=== PATIENT | female | born 1950 | race Caucasian/White ===

== ENCOUNTER 2024-08-13 10:31 | Inpatient (IN) ==
[2024-08-13 10:55] LABS: iSTAT Creatinine 0.8 mg/dl (0.6-1.3); iSTAT Hemoglobin 11.9 g/dl (12.0-16.0); iSTAT Ionized Calcium 1.1 mmol/l (1.12-1.32); iSTAT Potassium 3.8 mmol/L (3.3-5.0)
[2024-08-13 10:59] LABS: Basophils # (auto) 0.06 K/uL (0.00-0.20); Basophils % (auto) 0.6 %; Eosinophils # (auto) 0.16 K/uL (0.00-0.50); Eosinophils % (auto) 1.5 %; Hematocrit (blood only) 34.9 % (37.0-47.0); Immature Granulocytes # (auto) 0.04 K/uL (0.01-0.20); Immature Granulocytes % (auto) 0.4 %; Lymphocytes # (auto) 3.69 K/uL (1.20-3.40); Mean Corpuscular Hemoglobin 31.3 pg (25.0-34.0); Mean Corpuscular Hgb Conc 34.4 g/dL (32.0-36.0); Mean Corpuscular Volume 90.9 fL (80.0-100.0); Mean Platelet Volume 9.1 fL (9.4-12.4); Monocytes # (auto) 0.79 K/uL (0.11-0.59); Monocytes % (auto) 7.5 %; Neutrophils # (auto) 5.79 K/uL (1.40-6.50); Platelet Count 295 K/uL (130-400); RDW Coefficient of Variation 12.5 % (11.5-14.5); RDW Standard Deviation 41.1 fL (36.4-46.3); Red Blood Count 3.84 M/uL (4.20-5.40); White Blood Count 10.53 K/ul (4.8-10.8)
[2024-08-13] MEDS: HYDROmorphone INJ 0.5 MG/0.5 ML SYR IV PRN ×2 (11:05→22:23)
[2024-08-13] MEDS: ONDANSETRON INJ 2 MG/ML 2 ML VIAL IV STA ×2 (11:05→12:22)
[2024-08-13 11:11] LABS: Albumin Globulin Ratio 1.6 (0.9-2); BUN Creatinine Ratio 23.8 (10-20); Bilirubin,Total 0.4 mg/dl (0.2-1.0); Calcium 9.2 mg/dl (8.6-10.3); Creatinine Clr Calc Pharmacy 64.5 ml/min; Globulin 2.5 gm/dl (2.5-4.0); Potassium 3.8 mmol/L (3.5-5.1); Total Protein 6.5 gm/dl (6.0-8.3)
[2024-08-13 11:20] LABS: Appearance Urine Cloudy (Clear); Bacteria Urine Automated 4+ (None Seen); Bilirubin Urine Negative (Negative); Blood Urine Negative (Negative); Cast Urine Automated 0-2 /lpf (0-2); Color Urine Yellow; Epithelial Cell Urine Auto 0-2 /hpf (0-2); Glucose Urine UA Negative (Negative); Ketones Urine Negative (Negative); Leukocyte Esterase Urine 2+ (Negative); Nitrite Urine Negative (Negative); Protein Urine Negative (Negative); RBC Urine Automated 0-2 /hpf (0-2); Specific Gravity Urine 1.014 (1.000-1.030); Urobilinogen Urine Negative (Negative); WBC Urine Automated 21-50 /hpf (0-5)
[2024-08-13 11:23] LABS: INR 1.1 (0.9-1.1); Partial Thromboplastin Ratio 0.9; Partial Thromboplastin Time 23 Seconds (21-31); Prothrombin Time 11.4 Seconds (9.0-12.0)
--- NOTE | 2024-08-13 11:29 | XRay Report ---
EXAM: Radiographs of the Left Femur 2 Views INDICATION: Posttraumatic pain. Fracture. TECHNIQUE: Frontal and lateral views of the left femur. COMPARISON: No relevant prior studies available. FINDINGS: Bones/joints: There is a minimally angulated acute intertrochanteric fracture of the left femur. The femur otherwise is intact. There is mild medial and lateral compartment knee joint line spurring and medial narrowing. Soft tissues: No abnormality noted. No radiopaque foreign body noted. IMPRESSION: There is a minimally angulated acute intertrochanteric fracture of the left femur. ACT 112: Negative or not required by law. Electronically signed by Shantel Guzman 08-13-2024 11:28 AM
--- NOTE | 2024-08-13 11:31 | XRay Report ---
EXAM: Radiographs of the Right Knee 2 Views INDICATION: Trauma. TECHNIQUE: Frontal and lateral views of the right knee. COMPARISON: No relevant prior studies available. FINDINGS: Bones/joints: There is mild to moderate tricompartment spurring and narrowing mostly involving the medial and patellofemoral joints. There is no fracture or erosion. No loose body. No subluxation or dislocation. No joint effusion noted. There is incidental chondrocalcinosis of the lateral meniscal cartilage. Soft tissues: No abnormality noted. No radiopaque foreign body noted. IMPRESSION: Tricompartment primary osteoarthritis of the right knee. No acute abnormality. ACT 112: Negative or not required by law. Electronically signed by Shantel Guzman 08-13-2024 11:28 AM
--- NOTE | 2024-08-13 11:31 | XRay Report ---
EXAM: Radiographs of the Left Shoulder Complete 3 Views INDICATION: Trauma. TECHNIQUE: 3 views of the left shoulder. COMPARISON: No relevant prior studies available. FINDINGS: Bones/joints: There is mild acromioclavicular and inferior glenohumeral spurring. No fracture, subluxation or dislocation. Visualized left ribs intact. Soft tissues: Mild calcific tendinitis noted. IMPRESSION: Mild calcific tendinitis noted. No fracture. ACT 112: Negative or not required by law. Electronically signed by Shantel Guzman 08-13-2024 11:28 AM
--- NOTE | 2024-08-13 11:31 | XRay Report ---
EXAM: Radiographs of the Pelvis 1 View INDICATION: Trauma. TECHNIQUE: Frontal view of the pelvis. COMPARISON: No relevant prior studies available. FINDINGS: Limitations: None. Bones/joints: There is an acute angulated intertrochanteric fracture of the left femur. No other fracture noted. Soft tissues: No abnormality noted. No radiopaque foreign body noted. Gastrointestinal tract: Midline pelvic calcifications are of uncertain etiology and could be within the bladder or bowel. IMPRESSION: 1. There is an acute angulated intertrochanteric fracture of the left femur. Pelvis otherwise intact. 2. Cannot exclude bladder stones. ACT 112: Negative or not required by law. Electronically signed by Shantel Guzman 08-13-2024 11:28 AM
--- NOTE | 2024-08-13 11:31 | XRay Report ---
EXAM: Radiograph of the Chest 1 View INDICATION: Trauma. Hip fracture. TECHNIQUE: Frontal view of the chest. COMPARISON: No relevant prior studies available. FINDINGS: Lungs and pleural spaces: No consolidation or pulmonary edema. No pleural effusion or pneumothorax. Heart: Shape and configuration within normal limits allowing for technique. Mediastinum: Normal contour. Bones/joints: Degenerative changes noted throughout the spine. No acute osseous abnormality seen. Soft tissues: No abnormality noted. No radiopaque foreign body noted. Upper abdomen: No abnormality noted. IMPRESSION: No acute cardiopulmonary disease. ACT 112: Negative or not required by law. Electronically signed by Shantel Guzman 08-13-2024 11:28 AM
--- NOTE | 2024-08-13 11:55 | Electrocardiogram Report ---
Test Reason : Blood Pressure : */* mmHG Vent. Rate : 67 BPM Atrial Rate : 67 BPM P-R Int : 164 ms QRS Dur : 128 ms QT Int : 484 ms P-R-T Axes : 55 7 147 degrees QTcB Int : 511 ms Normal sinus rhythm Left bundle branch block Abnormal ECG No previous ECGs available Confirmed by Pacheco Guevara ([id number]) on 08/13/2024 11:54:27 AM Referred By: Confirmed By: Pacheco Guevara
--- NOTE | 2024-08-13 11:57 | CT Scan Report ---
EXAM: CT Head Without Intravenous Contrast INDICATION: Fall. TECHNIQUE: Axial computed tomography images of the head/brain without intravenous contrast. Sagittal and/or coronal reformats are provided. Sagittal and coronal reformatted images were created and reviewed. This CT exam was performed using one or more of the following dose reduction techniques: automated exposure control, adjustment of the mA and/or kV according to patient size, and/or use of iterative reconstruction technique. COMPARISON: No relevant prior studies available. FINDINGS: Limitations: None. Brain and extra-axial spaces: No abnormality noted. No hemorrhage. No significant white matter disease. No edema. No ventriculomegaly. Bones/joints: No acute changes. Soft tissues: No significant abnormality noted. Vasculature: No acute abnormality noted. Sinuses: No layering fluid in the visualized portions of the paranasal sinuses. Mastoid air cells: No mastoid effusion. Orbits: No significant abnormality noted. IMPRESSION: No abnormality noted. ACT 112: Negative or not required by law. Electronically signed by Shantel Guzman 08-13-2024 11:57 AM
[2024-08-13] MEDS: cefTRIAXone SODIUM 2,000 MG/50 ML BAG IV STA (12:02)
--- NOTE | 2024-08-13 12:09 | History & Physical Report ---
Date of Service August 13, 2024 Assessment & Plan (1) Acute bilateral knee pain: (2) Closed intertrochanteric fracture of left hip: (3) Fall: (4) Left shoulder strain: Plan Ms Mendoza is a 74 yo woman with history of DMTII, HTN, HLD, bilateral knee osteoarthritis, gerd who is admitted for left intertrochanteric fracture of femur. Injury sustained after slip on ice. Patient with QTC prolongation, will monitor on tele and hold qtc prolongating agents. With nausea in ED, will consider scopolamine if not resolving. #Left intertrochanteric fracture of femur #Mechanical fall Imaging as above sustained 08/13 after slip on ice Ortho consult NPO for possible procedure SCDs for now tylenol vic, dilaudid prn further recommendations per ortho PT/OT when able #Left shoulder pain Bones/joints: There is mild acromioclavicular and inferior glenohumeral spurring. No fracture, subluxation or dislocation. Visualized left ribs intact. PT/OT tylenol vic lidocaine patch #nausea received zofran x 2 in ED will follow qtc closely consider scopolamine if persistent #abnormal UA #Chronic cystitis interstitial cystitis patient doesn't necessarily feel that dysuria is any worse than usual CTX for short course given UA and procedure follow cx #QTC prolongation on admission 511 hold amytriptyline replace lytes prn repeat youth nutritional monitor on tele #HTN losartan 50mg, hold for am resume as able atenolol 40mg continue #HLD continue statin/fenofibrate #DMTII A1C 7.2% diet controlled ssi while admitted #Hypothyroidism TSH 05/2024 2.36 on synthroid 100mcg #Peripheral neuropathy BLE On amitriptyline 50mg daily; will hold 2/2 QTC #knee osteoarthritis follows Dr Lu continue volatren #GERD EGD/Colonscopy in 02/2024 Continue pantoprazole DVT SCDs for now PCP Dr Franklin admit med tele for repair of left intertrochanteric fracture Admission and Anticipated Discharge Date Admission Date: Time spent evaluating patient, direct bedside care, chart review, placing orders, interpretation of diagnostic studies, discussion with consultants, patient, and family members, as well as other required patient management activities is 75 minutes. History of Present Illness Chief Complaint: Fall, left hip Primary Care Provider: Galileo Franklin Ms Mendoza is a 74 yo woman with history of DMTII, HTN, HLD, bilateral knee osteoarthritis, gerd who presented to [facility] ED due to fall on ice. Patient was in usual state of health, however, after decending stairs outside, she slipped on ice and landed on left side. She states she noted pain with trying to ambulate prompting presentation to ED. at bedside. Both report that if rehab is necessary they are comfortable with that option contingent on recovery. Patient states that she has chronic dysuria and cannot discern if symptoms are necessarily worse than baseline. Patient on amitriptyline for peripheral neuropathy and interstitial cystitis. Patient denies chest pain, palpitations, sob or other acute concerns Reports nausea at this time, suspect 2/2 "everything" she is going through at this time In the ED, vitals were notable for BP of 120-150s HR of 60-80s and O2 sat of high 90s on 2L Imaging revealed acute angulated intertrochanteric fracture of the left femur. Pelvis otherwise intact. UA with Bacteria, LE, WBCs EKG 511 ED interventions: analgesia, zofran x 2, ctx Consultants: ortho Patient [facility] further evaluation and management of left intertrochanteric fracture of femur Allergies Allergy/AdvReac Type Severity Reaction Status Date / Time Unable to Assess Allergy Unverified 08/13/24 12:17 Home Medications Medication Instructions Recorded Confirmed Type Probiotic 1 cap PO DAILY 08/13/24 08/13/24 History amitriptyline 50 mg tablet 50 mg PO HS 08/13/24 08/13/24 History atenolol 50 mg tablet 50 mg PO DAILY 08/13/24 08/13/24 History calcium 1 tab PO DAILY 08/13/24 08/13/24 History famotidine 20 mg tablet 20 mg PO DAILY 08/13/24 08/13/24 History fenofibrate micronized 67 mg 67 mg PO DAILY 08/13/24 08/13/24 History capsule fiber 1 tab PO DAILY 08/13/24 08/13/24 History levothyroxine 100 mcg tablet 100 mcg PO DAILY 08/13/24 08/13/24 History losartan 50 mg tablet 50 mg PO DAILY 08/13/24 08/13/24 History multivitamin 1 tab PO DAILY 08/13/24 08/13/24 History pantoprazole 40 mg tablet,delayed 40 mg PO DAILY 08/13/24 08/13/24 History release potassium chloride 10 mEq 20 meq PO BID 08/13/24 08/13/24 History tablet,extended release pravastatin 20 mg tablet 20 mg PO DAILY 08/13/24 08/13/24 History Past Med/Surg History Problem List (Updated 08/13/24 @ 13:57 by Ankit Covarrubias MD) Left shoulder strain (Acute) Acute bilateral knee pain (Acute) Fall (Acute) Closed intertrochanteric fracture of left hip (Acute) Medical History (Updated 08/13/24 @ 13:57 by Ankit Covarrubias MD) Osteoarthritis GERD (gastroesophageal reflux disease) Peripheral neuropathy Hypothyroid Hyperlipidemia DM type 2 (diabetes mellitus, type 2) Hypertension Social History Smoking Status: Never smoker Preferred Language: [place] Island[place] Feels Safe at Home: Yes Review of Systems Review of Systems: Constitutional: (-) fever/chills, (-) recent loss of weight, (-) appetite changes, (-) night sweats. Head: (-) headache, (-) dizziness. Eye: (-) blurring of vision, (-) double vision, (-) redness. Ear: (-) hearing loss, (-) discharge, (-) vertigo Nose: (-) discharge, (-) bleeding, (-) congestion, (-) post nasal drip. Throat: (-) sore throat, (-) hoarseness of voice, (-) odynophagia. Cardiovascular: (-) chest pain, (-) palpitations, (-) syncope, (-) orthopnea, (- ) PND, (-) leg swelling. Respiratory: (-) shortness of breath, (-) cough, (-) wheezing, (-) hemoptysis. Neuro: (-) weakness in extremities, (-) numbness, (-) tingling, (-) tremor. Gastrointestinal: (-) belly pain, (-) belly distension, (-) nausea, (-) vomiting, (-) diarrhea, (-) constipation, Genitourinary: (-) hematuria, (+) dysuria, (-) polyuria, (-) hesitancy, (-) frequency, (-) urinary incontinence. Musculoskeletal: (-) myalgia, (+) arthralgia. Skin: (-) rashes. Endocrine: (-) heat/cold intolerance. Psychiatry: (-) depression, (-) hallucination. Physical Exam Physical Exam: GENERAL APPEARANCE: AxOx4, mildly uncomfortable female HEENT: NC, AT. MMM. EOMI, clear conjunctiva, oropharynx clear. NECK: Supple without lymphadenopathy. No stiffness or restricted ROM. HEART: Normal rate and regular rhythm, normal S1/S1, no m/r/g LUNGS: CTAB, moving air well. No crackles or wheezes are heard. ABDOMEN: Soft, nontender, nondistended with good bowel sounds heard. EXTREMITIES: left lower extremity shorten and externally rotated, sensation pulse intact . NEUROLOGICAL: Grossly nonfocal. Alert and oriented, moving all 3 extremities, LLE limited 2/2 pain. CN not formally tested but appear grossly intact. Skin: Warm and dry without any rash. Results & Data Results & Data Vital Signs (Past 12 Hours) Vital Signs Temp Pulse Pulse Resp BP BP Pulse Ox 08/13/24 11:20 64 18 167/79 H 95 08/13/24 10:40 36.5 C 66 20 145/60 H 100 08/13/24 10:40 36.5 C 66 20 145/60 H 100 08/13/24 10:40 36.5 C 66 20 145/60 H 100 O2 Del Method O2 Flow Rate 08/13/24 11:20 Room Air 08/13/24 10:40 Room Air 08/13/24 10:40 Room Air 0 08/13/24 10:40 Room Air Laboratory Results Short CBC 08/13/24 Range/Units 10:39 WBC 10.53 (4.8-10.8) K/ul Hgb 12.0 (12.0-16.0) g/dl Hct 34.9 L (37.0-47.0) % Plt Count 295 (130-400) K/uL BMP 08/13/24 10:39 Sodium 135 L Potassium 3.8 Chloride 104 Carbon Dioxide 23 BUN 19 Creatinine 0.80 Glucose 197 H Calcium 9.2 Liver Function 08/13/24 Range/Units 10:39 Total Bilirubin 0.4 (0.2-1.0) mg/dl AST 36 (13-39) U/L ALT 24 (7-52) U/L Alkaline Phosphatase 58 (34-104) U/L Albumin 4.0 (3.4-5.0) gm/dl Urine 08/13/24 Range/Units 11:05 Urine Color Yellow Urine Appearance Cloudy A (Clear) Urine pH 7.0 (4.5-7.5) Ur Specific [place] 1.014 (1.000-1.030) Urine Protein Negative (Negative) Urine Glucose (UA) Negative (Negative) Diagnostic Findings Femur X-Ray 08/13/24 10:46 EXAM: Radiographs of the Left Femur 2 Views INDICATION: Posttraumatic pain. Fracture. TECHNIQUE: Frontal and lateral views of the left femur. COMPARISON: No relevant prior studies available. FINDINGS: Bones/joints: There is a minimally angulated acute intertrochanteric fracture of the left femur. The femur otherwise is intact. There is mild medial and lateral compartment knee joint line spurring and medial narrowing. Soft tissues: No abnormality noted. No radiopaque foreign body noted. IMPRESSION: There is a minimally angulated acute intertrochanteric fracture of the left femur. ACT 112: Negative or not required by law. Electronically signed by Shantel Guzman 08-13-2024 11:28 AM Knee X-Ray 08/13/24 10:46 EXAM: Radiographs of the Right Knee 2 Views INDICATION: Trauma. TECHNIQUE: Frontal and lateral views of the right knee. COMPARISON: No relevant prior studies available. FINDINGS: Bones/joints: There is mild to moderate tricompartment spurring and narrowing mostly involving the medial and patellofemoral joints. There is no fracture or erosion. No loose body. No subluxation or dislocation. No joint effusion noted. There is incidental chondrocalcinosis of the lateral meniscal cartilage. Soft tissues: No abnormality noted. No radiopaque foreign body noted. IMPRESSION: Tricompartment primary osteoarthritis of the right knee. No acute abnormality. ACT 112: Negative or not required by law. Electronically signed by Shantel Guzman 08-13-2024 11:28 AM Pelvis X-Ray 08/13/24 10:46 EXAM: Radiographs of the Pelvis 1 View INDICATION: Trauma. TECHNIQUE: Frontal view of the pelvis. COMPARISON: No relevant prior studies available. FINDINGS: Limitations: None. Bones/joints: There is an acute angulated intertrochanteric fracture of the left femur. No other fracture noted. Soft tissues: No abnormality noted. No radiopaque foreign body noted. Gastrointestinal tract: Midline pelvic calcifications are of uncertain etiology and could be within the bladder or bowel. IMPRESSION: 1. There is an acute angulated intertrochanteric fracture of the left femur. Pelvis otherwise intact. 2. Cannot exclude bladder stones. ACT 112: Negative or not required by law. Electronically signed by Shantel Guzman 08-13-2024 11:28 AM Shoulder X-Ray 08/13/24 10:46 EXAM: Radiographs of the Left Shoulder Complete 3 Views INDICATION: Trauma. TECHNIQUE: 3 views of the left shoulder. COMPARISON: No relevant prior studies available. FINDINGS: Bones/joints: There is mild acromioclavicular and inferior glenohumeral spurring. No fracture, subluxation or dislocation. Visualized left ribs intact. Soft tissues: Mild calcific tendinitis noted. IMPRESSION: Mild calcific tendinitis noted. No fracture. ACT 112: Negative or not required by law. Electronically signed by Shantel Guzman 08-13-2024 11:28 AM Chest X-Ray 08/13/24 10:47 EXAM: Radiograph of the Chest 1 View INDICATION: Trauma. Hip fracture. TECHNIQUE: Frontal view of the chest. COMPARISON: No relevant prior studies available. FINDINGS: Lungs and pleural spaces: No consolidation or pulmonary edema. No pleural effusion or pneumothorax. Heart: Shape and configuration within normal limits allowing for technique. Mediastinum: Normal contour. Bones/joints: Degenerative changes noted throughout the spine. No acute osseous abnormality seen. Soft tissues: No abnormality noted. No radiopaque foreign body noted. Upper abdomen: No abnormality noted. IMPRESSION: No acute cardiopulmonary disease. ACT 112: Negative or not required by law. Electronically signed by Shantel Guzman 08-13-2024 11:[address] 08/13/24 10:50 EXAM: CT Head Without Intravenous Contrast INDICATION: Fall. TECHNIQUE: Axial computed tomography images of the head/brain without intravenous contrast. Sagittal and/or coronal reformats are provided. Sagittal and coronal reformatted images were created and reviewed. This CT exam was performed using one or more of the following dose reduction techniques: automated exposure control, adjustment of the mA and/or kV according to patient size, and/or use of iterative reconstruction technique. COMPARISON: No relevant prior studies available. FINDINGS: Limitations: None. Brain and extra-axial spaces: No abnormality noted. No hemorrhage. No significant white matter disease. No edema. No ventriculomegaly. Bones/joints: No acute changes. Soft tissues: No significant abnormality noted. Vasculature: No acute abnormality noted. Sinuses: No layering fluid in the visualized portions of the paranasal sinuses. Mastoid air cells: No mastoid effusion. Orbits: No significant abnormality noted. IMPRESSION: No abnormality noted. ACT 112: Negative or not required by law. Electronically signed by Shantel Guzman 08-13-2024 11:57 AM Medications Administered Home Medications Medication Instructions Recorded Confirmed Last Taken Probiotic 1 cap PO DAILY 08/13/24 08/13/24 Unknown amitriptyline 50 mg tablet 50 mg PO HS 08/13/24 08/13/24 Unknown atenolol 50 mg tablet 50 mg PO DAILY 08/13/24 08/13/24 Unknown calcium 1 tab PO DAILY 08/13/24 08/13/24 Unknown famotidine 20 mg tablet 20 mg PO DAILY 08/13/24 08/13/24 Unknown fenofibrate micronized 67 mg 67 mg PO DAILY 08/13/24 08/13/24 Unknown capsule fiber 1 tab PO DAILY 08/13/24 08/13/24 Unknown levothyroxine 100 mcg tablet 100 mcg PO DAILY 08/13/24 08/13/24 Unknown losartan 50 mg tablet 50 mg PO DAILY 08/13/24 08/13/24 Unknown multivitamin 1 tab PO DAILY 08/13/24 08/13/24 Unknown pantoprazole 40 mg tablet,delayed 40 mg PO DAILY 08/13/24 08/13/24 Unknown release potassium chloride 10 mEq 20 meq PO BID 08/13/24 08/13/24 Unknown tablet,extended release pravastatin 20 mg tablet 20 mg PO DAILY 08/13/24 08/13/24 Unknown Active Medications Generic Name Dose Route Start Last Admin Trade Name Freq PRN Reason Stop Dose Admin Hydromorphone HCl 0.5 mg 08/13/24 10:46 08/13/24 12:04 Hydromorphone Inj 0.5 Mg/0.5 Ml Syr IV 08/27/24 10:45 0.5 mg Q20M PRN Administration Severe Pain (Rating 7,8,9,10)
--- NOTE | 2024-08-13 12:10 | Emergency Department Note ---
Impression & Plan Closed intertrochanteric fracture of left hip, Fall, Acute bilateral knee pain, Left shoulder strain ED Provider Note NAME: ANA HAND AGE: 74 SEX: Female INFORMANT: Patient and EMS ED PROVIDER(S): Tigre Dial MD CHIEF COMPLAINT: Trauma PLAN: Disposition: Admitted Outpatient prescription management: none Referral: None MEDICAL DECISION MAKING: Patient presented because of an accidental fall on the icy stairs. Patient landed on her left side and had significant left hip pain. Patient was trauma alert. Primary and secondary surveys performed. Patient was found to have pain in the left shoulder, left hip, both knees. Patient does not feel like she hit her head but was uncertain so head CT imaging ordered. Patient had unremarkable blood work. X-ray imaging of the chest, shoulder and right knee did not reveal any fracture. Significant DJD noted in the knees bilaterally. Left femur and hip imaging reveal an intertrochanteric fracture. Pelvis unremarkable. Head CT was done and negative. Patient's ECG did not show any acute ischemia. Patient was treated with IV Dilaudid. Perry catheter placed. I did consult with orthopedics, Dr. Garcia. He is going to come and see the patient. Patient was given additional Zofran for nausea. She was given IV Rocephin to cover her possible UTI. Patient had a consult placed with Dr. Lvoe of the [facility]. Patient was evaluated and admitted for further management. 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 Vital Signs: reviewed and remarkable for no significant abnormalities Additional History obtained from: EMS. Patient received IV fentanyl 75 mcg x 1 and 25 mcg x 2 Chronic Medical/Social Conditions affecting care: Arthritis Prior/ Outside/ External records reviewed: none Differential Diagnosis: Fracture, dislocation, neurovascular compromise, compartment syndrome, soft tissue injury, as well as other pathologies. Diagnostics, independently interpreted by me: ECG: Twelve-lead ECG reveals normal sinus rhythm at 67 bpm. Left bundle branch block. No acute ischemia. No ectopy. Cardiac Monitoring: Cardiac monitoring ordered by me: The patient was placed on continuous cardiac monitoring and observed. It revealed a normal sinus rhythm at 81 beats per minute without ectopy or evidence of dysrhythmia. Medical decision rules: none Imaging studies: Head CT: A noncontrast CT scan of the head was performed and was negative for tumor, fracture, intracranial hemorrhage, or other acute pathology. X-ray imaging of the left shoulder and chest are negative for acute trauma. X-ray imaging of the left hip, pelvis, femur and right knee reveal left intertrochanteric hip fracture. There is osteoarthritis noted in both knees. I refer you to the EMR for further details. HPI: 74 year old Female arrives for evaluation of trauma. This started just prior to arrival and is described as falling on the snowy steps. Patient states that she went outside and slipped and went down on her left side. The patient also notes the following associated symptoms, left shoulder pain, left hip pain, bilateral knee pain. The patient has been given fentanyl x 3 by EMS for relieving factors. Current pain is rated as 8/10. Pain worse with movement of the left leg. Patient also notes some urinary discomfort recently. Patient is unsure if she hit her head. Denies any syncope. Pt denies LOC, headache, visual changes, neck pain, chest pain, breathing difficulties, nausea, vomiting, abdominal pain, back pain, numbness, weakness, open wounds, active bleeding, or other complaints. PAST MEDICAL HISTORY: See Below, osteoarthritis PAST SURGICAL HISTORY: See Below, SOCIAL HISTORY: See Below, HOME MEDICATIONS: See Below ALLERGIES: See Below VITALS: See Below PHYSICAL EXAMINATION: GENERAL: Awake, alert, uncomfortable appearing, no acute distress HEAD: Normocephalic, atraumatic. No whiteside sign. No raccoon eyes. EYES: Normal conjunctiva. PERRL. EARS: External ears normal. NOSE: Atraumatic OROPHARYNX: Lips, tongue, and mucosa unremarkable. No erythema or exudate. NECK: Supple. No nuchal rigidity. FROM. No tracheal deviation or JVD. No posterior midline tenderness. No step offs noted. RESPIRATORY: CTA bilaterally CARDIAC: Regular rate, normal rhythm. ABDOMEN: Inspection reveals no abnormalities. Soft, non distended. No tenderness to palpation. No hernias. BACK: No midline step offs or tenderness to palpation. Unremarkable. PELVIS: Stable to rock. SKIN: Normal. LYMPH: No adenopathy. MUSCULOSKELETAL: Right upper and lower extremities are atraumatic. There is some mild discomfort of range of motion testing of the left shoulder without obvious dislocation. No signs of deformity. No ecchymosis or swelling. Remainder of left upper extremity is atraumatic. Examination of the left lower extremity reveals shortening and external rotation. There is left hip tenderness and range of motion of the left hip is not able to be done due to severe pain. Clinically concerning for left hip fracture. There is a mild discomfort of the left knee without obvious deformity. Both lower extremities are neurovascularly intact. NEURO: GCS 15. Normal sensorium. No sensory or motor deficits noted. PROCEDURES: none CRITICAL CARE: none OBSERVATION NOTE: none Past Med/Surg History Problem List (Updated 08/13/24 @ 12:10 by Tigre Dial MD) Left shoulder strain (Acute) Acute bilateral knee pain (Acute) Fall (Acute) Closed intertrochanteric fracture of left hip (Acute) Social History Smoking Status: Never smoker Preferred Language: Divehi Feels Safe at Home: Yes Allergies Allergies Allergy/AdvReac Type Severity Reaction Status Date / Time Unable to Assess Allergy Unverified 08/13/24 12:17 Home Meds Home Medications Medication Instructions Recorded Confirmed Probiotic 1 cap PO DAILY 08/13/24 08/13/24 amitriptyline 50 mg tablet 50 mg PO HS 08/13/24 08/13/24 atenolol 50 mg tablet 50 mg PO DAILY 08/13/24 08/13/24 calcium 1 tab PO DAILY 08/13/24 08/13/24 famotidine 20 mg tablet 20 mg PO DAILY 08/13/24 08/13/24 fenofibrate micronized 67 mg 67 mg PO DAILY 08/13/24 08/13/24 capsule fiber 1 tab PO DAILY 08/13/24 08/13/24 levothyroxine 100 mcg tablet 100 mcg PO DAILY 08/13/24 08/13/24 losartan 50 mg tablet 50 mg PO DAILY 08/13/24 08/13/24 multivitamin 1 tab PO DAILY 08/13/24 08/13/24 pantoprazole 40 mg tablet,delayed 40 mg PO DAILY 08/13/24 08/13/24 release potassium chloride 10 mEq 20 meq PO BID 08/13/24 08/13/24 tablet,extended release pravastatin 20 mg tablet 20 mg PO DAILY 08/13/24 08/13/24 Results & Data (ED) Vital Signs Vital Signs - 24 hr 08/13/24 10:40 08/13/24 10:40 08/13/24 10:40 Temperature 36.5 C 36.5 C 36.5 C Temperature Source Oral Oral Pulse Rate 66 66 Pulse Rate [Apical] 66 Pulse Rhythm Regular Pulse Rhythm [Apical] Pulse Strength Normal Pulse Strength [Apical] Pulse Strength [Bilateral Femoral] Normal Respiratory Rate 20 20 20 Respiratory Effort / Characteristics Spontaneous Non-Labored Spontaneous Respiratory Depth Normal Normal Respiratory Pattern Regular Blood Pressure 145/60 H 145/60 H Blood Pressure [Right Arm] 145/60 H Blood Pressure Mean 88 Blood Pressure Mean [Right Arm] 88 Blood Pressure Position Lying Blood Pressure Position [Right Arm] Lying Pulse Oximetry 100 100 100 Oxygen Delivery Method Room Air Room Air Room Air Oxygen Flow Rate 0 Sepsis Recent Fever Within 48 Hours No Sepsis New/Unexplained Change in Mental Status No Sepsis Action Taken by Nursing No Action Required 08/13/24 11:20 08/13/24 12:08 08/13/24 12:18 Temperature Temperature Source Pulse Rate 81 Pulse Rate [Apical] 64 70 Pulse Rhythm Pulse Rhythm [Apical] Regular Pulse Strength Pulse Strength [Apical] Normal Pulse Strength [Bilateral Femoral] Respiratory Rate 18 15 Respiratory Effort / Characteristics Non-Labored Spontaneous Respiratory Depth Normal Respiratory Pattern Regular Blood Pressure Blood Pressure [Right Arm] 167/79 H 125/81 Blood Pressure Mean Blood Pressure Mean [Right Arm] 108 95 Blood Pressure Position Blood Pressure Position [Right Arm] Semi-fowlers Pulse Oximetry 95 99 Oxygen Delivery Method Room Air Nasal Cannula Oxygen Flow Rate 2 Sepsis Recent Fever Within 48 Hours Sepsis New/Unexplained Change in Mental Status Sepsis Action Taken by Nursing Laboratory Data 08/13/24 10:39 08/13/24 10:39 Lab Results 08/13/24 08/13/24 08/13/24 Range/Units 10:39 10:43 11:05 WBC 10.53 (4.8-10.8) K/ul RBC 3.84 L (4.20-5.40) M/uL Hgb 12.0 (12.0-16.0) g/dl POC Hgb 11.9 L (12.0-16.0) g/dl Hct 34.9 L (37.0-47.0) % POC Hct 35 L (37-47) % MCV 90.9 (80.0-100.0) fL MCH 31.3 (25.0-34.0) pg MCHC 34.4 (32.0-36.0) g/dL RDW Std Deviation 41.1 (36.4-46.3) fL RDW Coeff of Alyssia 12.5 (11.5-14.5) % Plt Count 295 (130-400) K/uL MPV 9.1 L (9.4-12.4) fL Immature Gran % (Auto) 0.4 % Neut % (Auto) 55.0 % Lymph % (Auto) 35.0 % [place] % (Auto) 7.5 % Eos % (Auto) 1.5 % Baso % (Auto) 0.6 % Neut # (Auto) 5.79 (1.40-6.50) K/uL Lymph # (Auto) 3.69 H (1.20-3.40) K/uL [place] # (Auto) 0.79 H (0.11-0.59) K/uL Eos # (Auto) 0.16 (0.00-0.50) K/uL Baso # (Auto) 0.06 (0.00-0.20) K/uL Immature Gran # (Auto) 0.04 (0.01-0.20) K/uL PT 11.4 (9.0-12.0) Seconds INR 1.1 (0.9-1.1) APTT 23 (21-31) Seconds PTT Ratio 0.9 POC Sodium 138 (135-144) mmol/L Sodium 135 L (136-145) mmol/L POC Potassium 3.8 (3.3-5.0) mmol/L Potassium 3.8 (3.5-5.1) mmol/L POC Chloride 107 (101-112) mmol/L Chloride 104 (98-107) mmol/L Carbon Dioxide 23 (21-32) mmol/L POC Total CO2 20 L (24-31) mmol/L Anion Gap 8 (3-11) POC Anion Gap 15.0 L (16-25) mmol/L POC BUN 17 (7-18) mg/dl BUN 19 (6-23) mg/dl Creatinine 0.80 (0.6-1.2) mg/dl POC Creatinine 0.8 (0.6-1.3) mg/dl Est Cr Clr Drug Dosing 64.5 ml/min eGFR 76.79 BUN/Creatinine Ratio 23.8 H (10-20) Glucose 197 H (70-99(Fasting)) mg/dl POC Glucose (other) 194 H (70-99) mg/dl Calcium 9.2 (8.6-10.3) mg/dl POC Ioniz Calcium Alexis 1.10 L (1.12-1.32) mmol/l Total Bilirubin 0.4 (0.2-1.0) mg/dl AST 36 (13-39) U/L ALT 24 (7-52) U/L Alkaline Phosphatase 58 (34-104) U/L Total Protein 6.5 (6.0-8.3) gm/dl Albumin 4.0 (3.4-5.0) gm/dl Globulin 2.5 (2.5-4.0) gm/dl Albumin/Globulin Ratio 1.6 (0.9-2) Urine Color Yellow Urine Appearance Cloudy A (Clear) Urine pH 7.0 (4.5-7.5) Ur Specific [place] 1.014 (1.000-1.030) Urine Protein Negative (Negative) Urine Glucose (UA) Negative (Negative) Urine Ketones Negative (Negative) Urine Blood Negative (Negative) Urine Nitrite Negative (Negative) Urine Bilirubin Negative (Negative) Urine Urobilinogen Negative (Negative) Ur Leukocyte Esterase 2+ H (Negative) Urine WBC (Auto) 21-50 H (0-5) /hpf Urine RBC (Auto) 0-2 (0-2) /hpf U Hyaline Cast (Auto) 0-2 (0-2) /lpf U Epithel Cells (Auto) 0-2 (0-2) /hpf Urine Bacteria (Auto) 4+ H (None Seen) Administered Medications Hydromorphone HCl (Hydromorphone Inj 0.5 Mg/0.5 Ml Syr) 0.5 mg IV Q20M PRN PRN Reason: Severe Pain (Rating 7,8,9,10) Stop: 08/27/24 10:45 Last Admin: 08/13/24 12:04 Dose: 0.5 mg Documented By: Admin: 08/13/24 11:05 Dose: 0.5 mg Documented By: NA Ceftriaxone Sodium (Rocephin) 2,000 mg in 50 mls @ 100 mls/hr IV NOW STA Stop: 08/13/24 12:20 Last Admin: 08/13/24 12:02 Dose: 100 mls/hr Documented By: CEF Discontinued Medications Ondansetron HCl (Ondansetron Inj 2 Mg/Ml 2 Ml Vial) 4 mg IV NOW STA Stop: 08/13/24 10:49 Last Admin: 08/13/24 11:05 Dose: 4 mg Documented By: NA Imaging Data Radiologist's Impression: Femur X-Ray 08/13/24 10:46 EXAM: Radiographs of the Left Femur 2 Views INDICATION: Posttraumatic pain. Fracture. TECHNIQUE: Frontal and lateral views of the left femur. COMPARISON: No relevant prior studies available. FINDINGS: Bones/joints: There is a minimally angulated acute intertrochanteric fracture of the left femur. The femur otherwise is intact. There is mild medial and lateral compartment knee joint line spurring and medial narrowing. Soft tissues: No abnormality noted. No radiopaque foreign body noted. IMPRESSION: There is a minimally angulated acute intertrochanteric fracture of the left femur. ACT 112: Negative or not required by law. Electronically signed by Shantel Guzman 08-13-2024 11:28 AM Knee X-Ray 08/13/24 10:46 EXAM: Radiographs of the Right Knee 2 Views INDICATION: Trauma. TECHNIQUE: Frontal and lateral views of the right knee. COMPARISON: No relevant prior studies available. FINDINGS: Bones/joints: There is mild to moderate tricompartment spurring and narrowing mostly involving the medial and patellofemoral joints. There is no fracture or erosion. No loose body. No subluxation or dislocation. No joint effusion noted. There is incidental chondrocalcinosis of the lateral meniscal cartilage. Soft tissues: No abnormality noted. No radiopaque foreign body noted. IMPRESSION: Tricompartment primary osteoarthritis of the right knee. No acute abnormality. ACT 112: Negative or not required by law. Electronically signed by Shantel Guzman 08-13-2024 11:28 AM Pelvis X-Ray 08/13/24 10:46 EXAM: Radiographs of the Pelvis 1 View INDICATION: Trauma. TECHNIQUE: Frontal view of the pelvis. COMPARISON: No relevant prior studies available. FINDINGS: Limitations: None. Bones/joints: There is an acute angulated intertrochanteric fracture of the left femur. No other fracture noted. Soft tissues: No abnormality noted. No radiopaque foreign body noted. Gastrointestinal tract: Midline pelvic calcifications are of uncertain etiology and could be within the bladder or bowel. IMPRESSION: 1. There is an acute angulated intertrochanteric fracture of the left femur. Pelvis otherwise intact. 2. Cannot exclude bladder stones. ACT 112: Negative or not required by law. Electronically signed by Shantel Guzman 08-13-2024 11:28 AM Shoulder X-Ray 08/13/24 10:46 EXAM: Radiographs of the Left Shoulder Complete 3 Views INDICATION: Trauma. TECHNIQUE: 3 views of the left shoulder. COMPARISON: No relevant prior studies available. FINDINGS: Bones/joints: There is mild acromioclavicular and inferior glenohumeral spurring. No fracture, subluxation or dislocation. Visualized left ribs intact. Soft tissues: Mild calcific tendinitis noted. IMPRESSION: Mild calcific tendinitis noted. No fracture. ACT 112: Negative or not required by law. Electronically signed by Shantel Guzman 08-13-2024 11:28 AM Chest X-Ray 08/13/24 10:47 EXAM: Radiograph of the Chest 1 View INDICATION: Trauma. Hip fracture. TECHNIQUE: Frontal view of the chest. COMPARISON: No relevant prior studies available. FINDINGS: Lungs and pleural spaces: No consolidation or pulmonary edema. No pleural effusion or pneumothorax. Heart: Shape and configuration within normal limits allowing for technique. Mediastinum: Normal contour. Bones/joints: Degenerative changes noted throughout the spine. No acute osseous abnormality seen. Soft tissues: No abnormality noted. No radiopaque foreign body noted. Upper abdomen: No abnormality noted. IMPRESSION: No acute cardiopulmonary disease. ACT 112: Negative or not required by law. Electronically signed by Shantel Guzman 08-13-2024 11:[address] 08/13/24 10:50 EXAM: CT Head Without Intravenous Contrast INDICATION: Fall. TECHNIQUE: Axial computed tomography images of the head/brain without intravenous contrast. Sagittal and/or coronal reformats are provided. Sagittal and coronal reformatted images were created and reviewed. This CT exam was performed using one or more of the following dose reduction techniques: automated exposure control, adjustment of the mA and/or kV according to patient size, and/or use of iterative reconstruction technique. COMPARISON: No relevant prior studies available. FINDINGS: Limitations: None. Brain and extra-axial spaces: No abnormality noted. No hemorrhage. No significant white matter disease. No edema. No ventriculomegaly. Bones/joints: No acute changes. Soft tissues: No significant abnormality noted. Vasculature: No acute abnormality noted. Sinuses: No layering fluid in the visualized portions of the paranasal sinuses. Mastoid air cells: No mastoid effusion. Orbits: No significant abnormality noted. IMPRESSION: No abnormality noted. ACT 112: Negative or not required by law. Electronically signed by Shantel Guzman 08-13-2024 11:57 AM Discharge Plan Visit Data Chief Complaint: Trauma Stated Complaint: FALL, L HIP FX, SHOULDER PAIN ED Provider: Tigre Dial Discharge Problem: Closed intertrochanteric fracture of left hip, Fall, Acute bilateral knee pain, Left shoulder strain Forms Stand Alone Forms: My [facility] [employer] Prescriptions Prescriptions: No Action losartan 50 mg tablet 50 mg PO DAILY potassium chloride 10 mEq tablet extended release 20 meq PO BID fenofibrate micronized 67 mg capsule 67 mg PO DAILY amitriptyline 50 mg tablet 50 mg PO HS levothyroxine 100 mcg tablet 100 mcg PO DAILY famotidine 20 mg tablet 20 mg PO DAILY pantoprazole 40 mg tablet,delayed release (DR/EC) 40 mg PO DAILY pravastatin 20 mg tablet 20 mg PO DAILY atenolol 50 mg tablet 50 mg PO DAILY multivitamin [Multi-Vitamins] Tablet 1 tab PO DAILY fiber Tablet 1 tab PO DAILY Rx Instructions: otc unknown dose Probiotic 1 cap PO DAILY Rx Instructions: otc unknown dose calcium 1 tab PO DAILY Rx Instructions: otc unknown dose Referrals Referrals: PCP,NO [Physician] -
[2024-08-13] MEDS: PROCHLORPERAZINE 5 MG in SYRINGE 4 ML IV ONE (13:06)
[2024-08-13 13:07] LABS: Magnesium 1.5 mg/dl (1.7-2.4)
[2024-08-13] MEDS: MECLIZINE HCL 25 MG TAB PO STA (13:08)
[2024-08-13] MEDS ORDERED: fentaNYL citrate PF 100 MCG/2 ML VIAL ONE (13:52)
[2024-08-13] MEDS ORDERED: MIDAZOLAM HCL 1 MG/ML 2ML VIAL ONE (13:52)
[2024-08-13] MEDS ORDERED: PROPOFOL IV EMULSION 10 MG/ML 20 ML VIAL IV ONE (13:52)
--- NOTE | 2024-08-13 14:01 | Anesthesiology Consultation ---
Date of Service August 13, 2024 Assessment & Plan (1) Encounter for pre-operative examination: Chart Review Chart Review: Acceptable Risk for Surgery History Surgery Operation Date: 08/13/24 14:00 Proposed Procedures p Intramedullary Bryn Femur(Left) - Rm Garcia DO Height/Weight Height: 5 ft 7 in Weight: 75.6 kg Allergies Allergy/AdvReac Type Severity Reaction Status Date / Time sulfamethoxazole Allergy Verified 08/13/24 14:44 [From Bactrim] trimethoprim [From Bactrim] Allergy Verified 08/13/24 14:44 acetaminophen AdvReac Mild Itching Verified 08/13/24 14:44 [From Darvocet-N] codeine AdvReac Mild Nausea Verified 08/13/24 14:44 propoxyphene AdvReac Mild Itching Verified 08/13/24 14:44 [From Darvocet-N] Medications Home Medications Medication Instructions Recorded Confirmed Last Taken Probiotic 1 cap PO DAILY 08/13/24 08/13/24 Unknown amitriptyline 50 mg tablet 50 mg PO HS 08/13/24 08/13/24 Unknown atenolol 50 mg tablet 50 mg PO DAILY 08/13/24 08/13/24 Unknown calcium 1 tab PO DAILY 08/13/24 08/13/24 Unknown famotidine 20 mg tablet 20 mg PO DAILY 08/13/24 08/13/24 Unknown fenofibrate micronized 67 mg 67 mg PO DAILY 08/13/24 08/13/24 Unknown capsule fiber 1 tab PO DAILY 08/13/24 08/13/24 Unknown levothyroxine 100 mcg tablet 100 mcg PO DAILY 08/13/24 08/13/24 Unknown losartan 50 mg tablet 50 mg PO DAILY 08/13/24 08/13/24 Unknown multivitamin 1 tab PO DAILY 08/13/24 08/13/24 Unknown pantoprazole 40 mg tablet,delayed 40 mg PO DAILY 08/13/24 08/13/24 Unknown release potassium chloride 10 mEq 20 meq PO BID 08/13/24 08/13/24 Unknown tablet,extended release pravastatin 20 mg tablet 20 mg PO DAILY 08/13/24 08/13/24 Unknown Active Medications Generic Name Dose Route Start Last Admin Trade Name Freq PRN Reason Stop Dose Admin Hydromorphone HCl 0.5 mg 08/13/24 10:46 08/13/24 12:04 Hydromorphone Inj 0.5 Mg/0.5 Ml Syr IV 08/27/24 10:45 0.5 mg Q20M PRN Administration Severe Pain (Rating 7,8,9,10) Magnesium Sulfate/Dextrose 1 gm in 100 mls @ 50 mls/hr 08/13/24 14:00 08/13/24 14:08 Magnesium Sulfate / D5w IV 08/13/24 17:59 50 mls/hr Q2H TABBY Administration Sodium Chloride 1,000 mls @ 80 mls/hr 08/13/24 13:45 08/13/24 14:03 Nss IV 08/14/24 13:44 80 mls/hr .[id number] TABBY Administration Past Medical History Medical History (Updated 08/13/24 @ 14:45 by Ankit Covarrubias MD) Osteoarthritis GERD (gastroesophageal reflux disease) Peripheral neuropathy Hypothyroid Hyperlipidemia DM type 2 (diabetes mellitus, type 2) Hypertension Past Surgical History Surgical History (Updated 08/13/24 @ 14:45 by Ankit Covarrubias MD) Hx of hysterectomy History of bladder suspension procedure Social History Smoking Status: Never smoker Physical Exam Vital Signs Last Vital Signs Temp 36.5 C 08/13/24 10:40 Pulse 66 08/13/24 14:08 Resp 21 08/13/24 14:08 BP 140/82 08/13/24 14:08 Pulse Ox 97 08/13/24 14:08 O2 Del Method Nasal Cannula 08/13/24 14:26 O2 Flow Rate 2 08/13/24 14:26 Testing Laboratory Results 08/13/24 10:39 08/13/24 10:39 PT 11.4 Seconds (9.0-12.0) 08/13/24 10:39 INR 1.1 (0.9-1.1) 08/13/24 10:39 APTT 23 Seconds (21-31) 08/13/24 10:39 Urine Color Yellow 08/13/24 11:05 Urine Appearance Cloudy (Clear) A 08/13/24 11:05 Urine pH 7.0 (4.5-7.5) 08/13/24 11:05 Ur Specific [place] 1.014 (1.000-1.030) 08/13/24 11:05 Urine Protein Negative (Negative) 08/13/24 11:05 Urine Glucose (UA) Negative (Negative) 08/13/24 11:05 Urine Ketones Negative (Negative) 08/13/24 11:05 Urine Nitrite Negative (Negative) 08/13/24 11:05 Ur Leukocyte Esterase 2+ (Negative) H 08/13/24 11:05 Urine WBC (Auto) 21-50 /hpf (0-5) H 08/13/24 11:05 Urine RBC (Auto) 0-2 /hpf (0-2) 08/13/24 11:05 U Hyaline Cast (Auto) 0-2 /lpf (0-2) 08/13/24 11:05 U Epithel Cells (Auto) 0-2 /hpf (0-2) 08/13/24 11:05 Urine Bacteria (Auto) 4+ (None Seen) H 08/13/24 11:05 08/13/24 10:43 POC Glucose (other) 194 H Electrocardiogram Date: 08/13/24 Findings: + NSR @ (67) and + LBBB Chest X-Ray Date: 08/13/24 Findings: + NAD
[2024-08-13] MEDS: SODIUM CHLORIDE 0.9% 1,000 ML IV SCH (14:03)
[2024-08-13] MEDS: MAGNESIUM SULFATE / D5W 1 GM/100 ML BAG IV SCH (14:08)
--- NOTE | 2024-08-13 14:35 | Orthopedic Consultation ---
Date of Consultation August 13, 2024 Assessment & Plan (1) Closed intertrochanteric fracture of left hip: (2) Fall: (3) DM type 2 (diabetes mellitus, type 2): (4) Hypertension: (5) Peripheral neuropathy: (6) Hypothyroid: Plan Marilyn is a pleasant 74-year-old female who presents to the emergency department today after a fall wherein she slipped on ice while descending stairs to go warm up her car. During the fall, she sustained a closed, traumatic, displaced left intertrochanteric hip fracture. I had a long discussion with the patient, her and daughter who joined her at bedside with regards to the nature of this diagnosis. We discussed in great detail the pathoanatomy, pathophysiology, treatment options. I discussed with him that hip fractures in general are fractures of immobility, and as such we attempted get them addressed as urgently as possible. I expressed to her that my recommendation for this fracture is for open versus closed reduction and cephalomedullary nailing of the left hip. I expressed to them that there are risks associate with surgery that include but are not limited to loss of life/limb, DVT, incomplete relief of pain, hardware complication, hardware failure, hardware irritation, iatrogenic injury to bone/nerve/tendon/vessel, malunion, nonunion, need for additional surgery, infection, screw cut out. Patient understands these risks. I also discussed with them the alternatives to surgery which would be for nonoperative care. If the patient were to elect for nonoperative care, I believe that her risks of DVT, decubitus ulcers, pneumonia are significantly high as the patient would have significant pain with attempted mobilization. After thorough discussion of the risks and benefits as well as alternatives to surgery, through shared decision-making model, the patient and her family have elected to proceed with operative management. No promises or guarantees were stated or implied. Patient has been n.p.o. since 7 AM. We will proceed to the operating room upon OR availability. I did discuss in plain terms with the patient and her family that hip fractures are often times harbingers of worsening state,. The patient and her family understand that hip fractures signify the significant osteopenia or osteoporosis that patient has as well as their decreasing functional mobility. I expressed to the patient that considering she walks ordinarily without assistive devices, our best case in areas that she ambulates with a cane moving forward. The patient and her family expressed understanding to this and the discussion of her overall functional status. we also discussed bone health. We will order vitamin D labs and replete as necessary, additionally, the patient will be referred to the osteoporosis clinic as an outpatient. The patient has been admitted to the medical team. She is also receiving treatment for her suspected urinary tract infection. I did express to them that this may raise her risk of infection from surgery, however in my opinion,the risks of delaying surgery do not outweigh the benefits of proceeding to the operating room Surgical plan: Open versus closed reduction and internal fixation of the left hip for left intertrochanteric hip fracture History of Present Illness Reason for Consultation: Left hip fracture Attending Physician: Dr. Love History of Present Illness Ms Mendoza is a 74 yo woman with history of DMTII, HTN, HLD, bilateral knee osteoarthritis, gerd who presented to [facility] ED due to fall on ice. Patient was in usual state of health, however, after decending stairs outside, she slipped on ice and landed on left side. She states she noted pain with trying to ambulate prompting presentation to ED. Patient states that she has chronic dysuria and cannot discern if symptoms are necessarily worse than baseline. Patient on amitriptyline for peripheral neuropathy and interstitial cystitis. Patient denies chest pain, palpitations, sob or other acute concerns. In the ED, vitals were notable for BP of 120-150s HR of 60-80s and O2 sat of high 90s on 2L Imaging revealed acute angulated intertrochanteric fracture of the left femur. orthopedics was then consulted. On my evaluation, the patient notes pain in her left hip primarily. She does have some pain in her left shoulder, as well. Patient notes that she ambulates about the community without assistive devices at baseline. Allergies Allergy/AdvReac Type Severity Reaction Status Date / Time sulfamethoxazole Allergy Verified 08/13/24 14:44 [From Bactrim] trimethoprim [From Bactrim] Allergy Verified 08/13/24 14:44 acetaminophen AdvReac Mild Itching Verified 08/13/24 14:44 [From Darvocet-N] codeine AdvReac Mild Nausea Verified 08/13/24 14:44 propoxyphene AdvReac Mild Itching Verified 08/13/24 14:44 [From Darvocet-N] Home Medications Medication Instructions Recorded Confirmed Type Probiotic 1 cap PO DAILY 08/13/24 08/13/24 History amitriptyline 50 mg tablet 50 mg PO HS 08/13/24 08/13/24 History atenolol 50 mg tablet 50 mg PO DAILY 08/13/24 08/13/24 History calcium 1 tab PO DAILY 08/13/24 08/13/24 History famotidine 20 mg tablet 20 mg PO DAILY 08/13/24 08/13/24 History fenofibrate micronized 67 mg 67 mg PO DAILY 08/13/24 08/13/24 History capsule fiber 1 tab PO DAILY 08/13/24 08/13/24 History levothyroxine 100 mcg tablet 100 mcg PO DAILY 08/13/24 08/13/24 History losartan 50 mg tablet 50 mg PO DAILY 08/13/24 08/13/24 History multivitamin 1 tab PO DAILY 08/13/24 08/13/24 History pantoprazole 40 mg tablet,delayed 40 mg PO DAILY 08/13/24 08/13/24 History release potassium chloride 10 mEq 20 meq PO BID 08/13/24 08/13/24 History tablet,extended release pravastatin 20 mg tablet 20 mg PO DAILY 08/13/24 08/13/24 History Patient History Medical History (Updated 08/13/24 @ 13:57 by Ankit Covarrubias MD) Osteoarthritis GERD (gastroesophageal reflux disease) Peripheral neuropathy Hypothyroid Hyperlipidemia DM type 2 (diabetes mellitus, type 2) Hypertension Social History Smoking Status: Never smoker Preferred Language: Polish Feels Safe at Home: Yes Review of Systems Review of Systems: All systems reviewed & are unremarkable except as noted in HPI & below Physical Exam Physical Exam: Left lower extremity: -Tenderness palpation at left proximal f emur -Pain with logroll and heel strike -Sensation intact to light touch L2-S1, but diminished and at baseline -EHL/FHL/GSC/TA motor intact -Foot is warm and well-perfused Results & Data Vital Signs (Past 12 Hours) Vital Signs Temp Pulse Pulse Resp BP BP Pulse Ox 08/13/24 14:26 08/13/24 14:08 66 21 140/82 97 08/13/24 13:10 67 15 156/70 H 99 08/13/24 12:18 81 08/13/24 12:08 70 15 125/81 99 08/13/24 11:20 64 18 167/79 H 95 01/19/25 10:40 36.5 C 66 20 145/60 H 100 08/13/24 10:40 36.5 C 66 20 145/60 H 100 08/13/24 10:40 36.5 C 66 20 145/60 H 100 O2 Del Method O2 Flow Rate 08/13/24 14:26 Nasal Cannula 2 08/13/24 14:08 Nasal Cannula 2 08/13/24 13:10 Nasal Cannula 2 08/13/24 12:18 08/13/24 12:08 Nasal Cannula 2 08/13/24 11:20 Room Air 08/13/24 10:40 Room Air 08/13/24 10:40 Room Air 0 08/13/24 10:40 Room Air Diagnostic Findings x-rays of the left femur, left knee, pelvis, left shoulder were personally interpreted and reviewed. These demonstrate a left intertrochanteric hip fract ure. No additional acute abnormalities are appreciated.
--- NOTE | 2024-08-13 14:45 | History & Physical Bridge Note ---
Date of Service August 13, 2024 History & Physical Bridge Note I have examined the patient, reviewed the History & Physical and in the interval since the performance of the History & Physical I have noted the following changes of clinical significance: Marilyn is a pleasant 74-year-old female who presents to the emergency department today after a fall wherein she slipped on ice while descending stairs to go warm up her car. During the fall, she sustained a closed, traumatic, displaced left intertrochanteric hip fracture. I had a long discussion with the patient, her and daughter who joined her at bedside with regards to the nature of this diagnosis. We discussed in great detail the pathoanatomy, pathophysiology, treatment options. I discussed with him that hip fractures in general are fractures of immobility, and as such we attempted get them addressed as urgently as possible. I expressed to her that my recommendation for this fracture is for open versus closed reduction and cephalomedullary nailing of the left hip. I expressed to them that there are risks associate with surgery that include but are not limited to loss of life/limb, DVT, incomplete relief of pain, hardware complication, hardware failure, hardware irritation, iatrogenic injury to bone/nerve/tendon/vessel, malunion, nonunion, need for additional surgery, infection, screw cut out. Patient understands these risks. I also discussed with them the alternatives to surgery which would be for nonoperative care. If the patient were to elect for nonoperative care, I believe that her risks of DVT, decubitus ulcers, pneumonia are significantly high as the patient would have significant pain with attempted mobilization. After thorough discussion of the risks and benefits as well as alternatives to surgery, through shared decision-making model, the patient and her family have elected to proceed with operative management. No promises or guarantees were stated or implied. Patient has been n.p.o. since 7 AM. We will proceed to the operating room upon OR availability. I did discuss in plain terms with the patient and her family that hip fractures are often times harbingers of worsening state,. The patient and her family understand that hip fractures signify the significant osteopenia or osteoporosis that patient has as well as their decreasing functional mobility. I expressed to the patient that considering she walks ordinarily without assistive devices, our best case in areas that she ambulates with a cane moving forward. The patient and her family expressed understanding to this and the discussion of her overall functional status. we also discussed bone health. We will order vitamin D labs and replete as necessary, additionally, the patient will be referred to the osteoporosis clinic as an outpatient. The patient has been admitted to the medical team. She is also receiving treatment for her suspected urinary tract infection. I did express to them that this may raise her risk of infection from surgery, however in my opinion,the risks of delaying surgery do not outweigh the benefits of proceeding to the operating room Surgical plan: Open versus closed reduction and internal fixation of the left hip for left intertrochanteric hip fracture
[2024-08-13] MEDS ORDERED: ATROPINE SULFATE 0.1 MG/ML 10ML SYR IV PRN (14:48)
[2024-08-13] MEDS ORDERED: KETOROLAC TROMETHAMINE 15 MG/ML VIAL IV PRN (14:48)
--- OUTSIDE RECORDS SUMMARY | 2024-08-13 14:49 | External Medical Summary | Summary of Care ---
Author Name Unknown Organization [facility] Address [address] [facility] [place] [address] Phone [phone] Care Team Providers Care Electrode Cleaning Machine Operator Name Role Phone Roxanne Franklin MD Primary Care Provide r Reason for Visit * Reason Comments eRx-Medication Refill Encounter Details Date Type Department Care Team (Late st Contact Info) Description 08/03/2024 Refill Family Medicine [address] [place] [id number] Roxanne Franklin MD [address] [place] [address] [place] Sau[place]o [address] Reflux esophagitis Allergies Active Allergy Reactions Criticality Noted Date Comments Bactrim Edema Other 04/16/2009 Joint pain Morphine And Codeine 09/10/2005 Propoxyphene Napsylate 10/06/2005 Tramadol Hcl 08/23/2008 documented as of this encounter (statuses as of 08/03/2024) Medications MULTIVITAMINS PO CAPS one daily 0 01/20/20 07 Active CALCIUM 600-200 MG-UNIT PO TABS one bid 0 01/20/20 07 Active FIBER-LAX 625 MG PO TABS one daily 0 01/20/20 07 Active CORTISPORIN 1 % EX OINTIndications:O pen wound of nose apply to each nare twice a day when needed 15 g 1 09/18/19 15 Active Probiotic Product (PROBIOTIC & ACIDOPHILUS EX ST) Capsule Take 1 Cap by mouth once. Active Magnesium 500 MG Oral Capsule Take 1 Capsule by mouth in the morning. 08/13/19 22 Active Azelastine HCl 0.05 % Ophthalmic Solution (Optivar)Indicati ons:Allergic conjunctivitis of both eyes Instill into both eyes 1 Drop in the morning AND 1 Drop before bedtime. 6 mL 12 12/17/19 22 Active Hydrocortisone (Perianal) 2.5 % External Cream (Anusol-HC)Indica tions:Hemorrhoids , external without complications Administer into the rectum 2 times a day. 28 g 3 06/01/20 22 Active Montelukast Sodium 10 MG Oral Tablet (Singulair)Indica tions:Allergic rhinitis, unspecified seasonality, unspecified trigger Take 1 Tablet by mouth in the morning. 90 Tablet 1 08/10/19 23 Active Cetirizine HCl 10 MG Oral Tablet (ZyrTEC Allergy)Indicatio ns:Allergy, subsequent encounter Take 1 Tablet by mouth in the morning. 30 Tablet 5 07/02/20 23 Active Simethicone 80 MG Oral Tablet Chewable Take 1 Tablet by mouth every 6 hours as needed for Gas. 07/27/19 24 Active Pravastatin Sodium 20 MG Oral Tablet (Pravachol) TAKE ONE TABLET BY MOUTH IN THE MORNING 90 Tablet 3 08/26/19 24 Active Potassium Chloride ER 10 MEQ Oral Tablet Extended Release TAKE TWO TABLETS BY MOUTH IN THE MORNING AND TWO TABLETS AT BEDTIME 360 Tablet 3 08/26/19 24 Active Losartan Potassium 50 MG Oral Tablet (Cozaar)Indicatio ns:HTN, goal below 140/90 Take 1 Tablet by mouth in the morning. 90 Tablet 3 08/26/19 24 Active Diclofenac Sodium 1 % External Gel (Voltaren)Indicat ions:Chronic pain of right knee,DDD (degenerative disc disease), cervical Apply topically to affected area every 6 hours as needed (shoulder). 150 g 2 09/29/19 24 Active busPIRone HCl 10 MG Oral Tablet (Buspar)Indicatio ns:Anxiety Take 1 Tablet by mouth in the morning and 1 Tablet before bedtime. 60 Tablet 5 10/18/19 24 Active Baclofen 20 MG Oral TabletIndications :Degeneration of lumbosacral intervertebral disc Take 1 Tablet by mouth in the morning and 1 Tablet before bedtime. As needed. 30 Tablet 12/03/19 24 Active Atenolol 50 MG Oral Tablet (Tenormin)Indicat ions:HTN, goal below 140/90 TAKE ONE TABLET BY MOUTH EVERY DAY 90 Tablet 3 12/24/19 24 Active Pantoprazole Sodium 40 MG Oral Tablet Delayed Release (Protonix)Indicat ions:Gastroesopha geal reflux disease with esophagitis without hemorrhage Take 1 Tablet by mouth in the morning and 1 Tablet before bedtime. In the morning.. 90 Tablet 3 12/23/19 24 Active Ondansetron HCl 4 MG Oral TabletIndications :Nausea Take 1 Tablet by mouth every 6 hours as needed for Nausea or Vomiting. 30 Tablet 02/11/20 24 Active Dicyclomine HCl 20 MG Oral Tablet (Bentyl)Indicatio ns:Irritable bowel syndrome with diarrhea TAKE ONE TABLET BY MOUTH FOUR TIMES DAILY NEEDED FOR ABDOMINAL PAIN 120 Tablet 11 02/23/20 24 Active Levothyroxine Sodium 100 MCG Oral Tablet (Levoxyl)Indicati ons:Acquired hypothyroidism TAKE ONE TABLET BY MOUTH DAILY AT LEAST 30 MINS PRIOR TO BREAKFAST OR OTHER MEDS 90 Tablet 2 04/19/20 24 Active Fenofibrate Micronized 67 MG Oral Capsule Take 1 Capsule by mouth daily before breakfast. 90 Capsule 3 04/19/20 24 Active hydrOXYzine HCl 25 MG Oral TabletIndications :Dermatitis TAKE ONE TABLET BY MOUTH TWICE DAILY 40 Tablet 2 05/22/20 24 Active Amitriptyline HCl 50 MG Oral Tablet (Elavil)Indicatio ns:Urinary frequency,Pelvic pain in female Take 1 Tablet by mouth at bedtime. 90 Tablet 1 06/02/20 24 Active Azithromycin 250 MG Oral Tablet (Zithromax Z-Yemi)Indications :Acute non-recurrent maxillary sinusitis Take two tablets by mouth on first day, then 1 tablet daily until gone 6 Tablet 06/02/20 24 Active Famotidine 20 MG Oral Tablet (Pepcid)Indicatio ns:Reflux esophagitis TAKE ONE TABLET BY MOUTH IN THE MORNING 90 Tablet 3 08/03/19 25 Active Famotidine 20 MG Oral Tablet (Pepcid)Indicatio ns:Reflux esophagitis Take 1 Tablet by mouth in the morning. 90 Tablet 3 08/26/19 24 2024 Discontinued documented as of this encounter (statuses as of 08/03/2024) Active Problems Problem Noted Date Diagnosed Date Diabetic peripheral neuropathy 06/02/2024 Hepatic steatosis 04/09/2022 Primary osteoarthritis of left knee 10/29/2020 Rectocele 05/03/2020 Cystocele, lateral 05/03/2020 Prolapse of vaginal vault after hysterectomy 03/2020 Chondrocalcinosis 07/07/2018 Chronic interstitial cystitis 11/05/2009 DYSLIPIDEMIA, GOAL LDL BELOW 100 07/04/2009 Overview (07/04/2009): Per Lipid Taxonomy. HTN, GOAL BELOW 140/90 05/31/2009 Overview (05/31/2009): Modified per HTN Taxonomy. Mixed urge and stress incontinence 04/09/2005 Acquired hypothyroidism 03/06/2003 Reflux esophagitis GENERALIZED ANXIETY DIS Irritable bowel syndrome LUMB-LUMBOSAC DISC DEGEN LBBB (left bundle branch block) Allergic rhinitis Type 2 diabetes mellitus wit h hemoglobin A1c goal of less than 8.0% documented as of this encounter (statuses as of 08/03/2024) Resolved Problems Problem Noted Date Diagnosed Date Resolved Date ADVANCE DIRECTIVE INFORMATION 05/03/2020 05/29/2024 Overview (10/06/2005): No, Advance Directive brochure offered , patient declined. Heart murmur previously undiagnosed 05/03/2020 09/02/2020 HTN, goal below 130/80 12/01/201012/28 TEAR MED MENISC KNEE-CUR 10/14/200511/2014 Back disorder 04/09/2005 12/28/2014 CORONARY ATHEROSCLER. OF SELIN ANITA CORONARY VESSEL 03/21/2003 07/07/2018 BENIGN HYPERTENSION 07/11/2002 05/31/20 09 Overview (05/31/2009): Modified per HTN Taxonomy. Myalgia and myositis 015 Acid reflux 07/07/2018 PURE HYPERCHOLESTEROLEM 06/25 Overview (07/04/2009): Per Lipid Taxonomy. Arthritis, rheumatoid 2017 Need for prophylactic hormon e replacement therapy (postmenopausal) 03/21/2003 Herpes zoster 12/28/2014 Lateral epicondylitis 2014 Ganglion of joint 12/28/2014 Overview (03/21/2009): left foot Impaired glucose tolerance 0 08/19/2017 documented as of this encounter (statuses as of 08/03/2024) Immunizations Name Administration Dates Next Due Pneumococcal Conjugate Vacc, 13 Valent (Prevnar) 12/28/2014 Pneumococcal Polysaccharide PPV23 (Pneumovax) 05/14/2016,04/23/2008 Seasonal Influenza Vac., MDV , IM, 0.5 mL (Fluzone) 04/02/2015,03/29/2014,04/11/2013,04/04,04/21/2011,05/01/2010,04/16/2009 ,06/05/2008 Seasonal Influenza, High Dos e, Trivalent, PF, IM (Fluzone HD) 04/04/2024,04/10/2016 Seasonal Influenza, Quadriva lent Hd (Fluzone Hd) 08/10/2022 TD - Tetanus/Diptheria (ADULT) 07/26/2000 TDAP, Age 7 and older, IM (Adacel) 09/22/2010 documented as of this encounter Social History Tobacco Use Types Packs/Day Years Used Date Smoking Tobacco: Never Smokeless Tobacco: Never Alcohol Use Standard Drinks/Week Comments No 0 (1 standard drink = 0.6 oz pur e alcohol) PHQ-2 Answer Date Recorded PHQ Adult Total Score 8 09/17/2023 Hunger Vital Sign Answer Date Recorded Within the past 12 months, y ou worried that your food would run out before you got the money to buy more. Never true 09/17/19 24 Within the past 12 months, t he food you bought just didn't last and you didn't have money to get more. Never true 09/17/2023 Childcare Answer Date Recorded Do you feel overwhelmed with taking care of a child, family member or friend? No 09/17/2023 Does your family need help f inding childcare? (Household - for ages 0-17 years) Not on file 09/17/2023 Clothing Answer Date Recorded Have you been unable to get clothing when it was really needed? No 09/17/2023 Is your family able to get c lothes or diapers when needed? (Household - for ages 0-17 years) Not on file 09/17/2023 Personal Safety Answer Date Recorded Do you feel unsafe or have concerns for your saf ety? No 09/17/2023 Do you have concerns for you r family's safety? (Household - for ages 0-17 years) Not on file 09/17/2023 Utilities Answer Date Recorded Do you have trouble paying y our heating, water, or electric bill? No 09/17/2023 Is your family able to pay t he heat, water, or electric bill? (Household - for ages 0-17 years) Not on file 09/17/2023 Does your family have access to good internet? (Household - for ages 0-17 years) Not on file 09/17/2023 Employment Status Answer Date Recorded Are you unemployed or without regular income? No 09/17/2023 Does the household have a re gular source of income? (Household - for ages 0-17 years) Not on file 09/17/2023 Social Connections Answer Date Recorded How often do you feel lonely or isolated from those around you? Sometimes 09/17/2023 Financial Resource Strain Answer Date R ecorded Do you have any trouble payi ng for your medications, or do you think you might in the future? No 09/17/2023 Does your family have troubl e paying for medicine? (Household - for ages 0-17 years) Not on file 09/17/2023 Transportation Needs Answer Date Record ed READ ONLY Do you have troubl e getting a ride to medical visits or work? Never True 09/17/2023 Does your family have a hard time getting a ride to doctors visits? (Household - for ages 0-17 years) Not on file 09/17/2023 Has lack of transportation k ept you from medical appointments, meetings, work, or from getting things needed for daily living? Check all that apply. (Adult - for ages 18 years and over) Not on file 09/17/2023 Do you (or your family) have trouble finding or paying for a ride (transportation)? (Household - for ages 0-17 years) Not on file 09/17/2023 Housing Stability Answer Date Recorded Do you currently live in a s helter or have no steady place to sleep at night? No 09/17/2023 READ ONLY Do you think you a re at risk of becoming homeless? No 09/17/2023 Does your family worry about paying for your home or becoming homeless? (Household - for ages 0-17 years) Not on file 0 09/17/2023 Are you homeless or worried that you might be in the future? (Adult - for ages 18 years and over) Not on file Are you (or your family) shanita eless or worried that you might be in the future? (Household - for ages 0-17 years) Not on file Food Insecurity Answer Date Recorded Do you need food for this week? No 09/17/2023 Are you able to get enough f ood for your family? (Household - for ages 0-17 years) Not on file 09/17/2023 Does your family need food t his week? (Household - for ages 0-17 years) Not on file 09/17/2023 Do you always have enough fo od for your family? (Household - for ages 0-17 years) Not on file 09/17/2023 Comments No Sex and Gender Information Value Date Recorded Sex Assigned at Not on file Legal Sex Female 5:26 AM EST Gender Identity Not on file Sexual Orientation Not on file documented as of this encounter Miscellaneous Notes * Telephone Encounter - Jeni Manzano chely - 08/03/2024 7:06 PM EST Signed Prescriptions: Disp Refills Famotidine 20 MG Oral Tablet (Pepcid) 90 Tab*3 Sig: TAKE ONE TABLET BY MOUTH IN THE MORNINGAuthorizing Provider: ROXANNE FRANKLIN User: JENI MANZANO documented in this encounter Plan of Treatment Upcoming Encounters Date Type Department Care Team (Late st Contact Info) Description 08/14/2024 2:20 PM EST Office Visit Family Medicine [address] [place] [address] Avril Mcgowan PA-C [address] [place] [address] [place] [id number] 02/12/2025 2:00 PM EDT Office Visit Family Medicine [address] [place] [phone] Avril Mcgowan PA-C [address] [place] [address] [place] [address] 05/29/2025 1:30 PM EST Imaging Radiology [address] [place] [address] Health Maintenance Due Date Last Done Comments Zoster Vaccines (1 of 2) 1999 Adult Wellness Visit 03/10/2018 03/10/2017 DXA Scan 02/15/2022 02/15/2015, 10/24, 07/04/2008 COVID-19 Vaccine ( season) 2024 Depression Screening 09/17/2024 09/17/2023 Diabetic Foot Exam 09/17/2024 09/17/2023, 0 02/05/2022, 02/16/2020, Additional history exists HbA1c 11/30/2024 06/02/2024, 01/23, 02/04/2023, Additional history exists Albumin/Creatinine Ratio 02/10/2025 024, 01/20/2023, 11/27/2021, Additional history exists Diabetic Eye Exam 05/16/2025 05/16/2024, , 03/12/2023, Additional history exists GFR 06/02/2025 06/02/2024, 01/23, 12/23/2023, Additional history exists TSH 06/02/2025 06/02/2024, 11/25, 09/02/2023, Additional history exists DTap/Tdap Vaccines (3 - Td or Tdap) 12/03/2032 12/03/2022, 09/22/2010, 07/26/2000 Fecal Occult Blood Test Discontinued 02/02/2002 Pneumococcal Vaccine: 50+ Years Completed 05/14/2016, 12/28/2014, 04/23/2008 Colonoscopy Discontinued 06/12/2022, 09/21/2017 Colorectal Cancer Screening Discontinued Sigmoidoscopy Discontinued 11/27/2022, 11/27/2022 Influenza Vaccine (FLU shot) Completed 04/04/2024, 04/04/2024, 08/10/2022, Additional history exists Cologuard Discontinued HPV (Gardasil) Vaccine Aged Out No lo nger eligible based on patient's age to complete this topic Hepatitis B Vaccine Aged Out No longe r eligible based on patient's age to complete this topic MENINGOCOCCAL (MENACTRA/MENVEO) Aged Out No longer eligible based on patient's age to complete this topic documented as of this encounter Medical Devices Not on filedocumented as of this encounter Visit Diagnoses Diagnosis Reflux esophagitis Screening mammogram for breast cancer documented in this encounter Care Teams Electrode Cleaning Machine Operator Relationship Specialty Start Date End Date Roxanne Franklin MD [address] [place] [address] [place] [address] PCP - General Family Medicine 02/14/24 documented as of this encounter
--- OUTSIDE RECORDS SUMMARY | 2024-08-13 14:49 | External Medical Summary | Summary of Care ---
Author Name Unknown Organization [facility] Address [address] [facility] [place] [address] Phone [phone] Care Team Providers Care Costume Shop Manager Name Role Phone Hemal Franklin MD Primary Care Provide r Reason for Visit * Reason Onset Date Comments Advice 03/31/2024 Encounter Details Date Type Department Care Team (Late st Contact Info) Description 03/31/2024 Telephone Family [address] [phone] Hemal Franklin MD [address] [place] [address] [place] Sauced[place] [id number] Advice Allergies Active Allergy Reactions Criticality Noted Date Comments Bactrim Edema Other 04/16/2009 Joint pain Morphine And Codeine 09/10/2005 Propoxyphene Napsylate 10/06/2005 Tramadol Hcl 08/23/2008 documented as of this encounter (statuses as of 06/30/2024) Medications MULTIVITAMINS PO CAPS one daily 0 [...] morning. 90 Tablet 3 08/26/19 24 Active Famotidine 20 MG Oral Tablet [...] PAIN 120 Tablet 11 02/23/20 24 Active hydrOXYzine HCl 25 MG Oral TabletIndications :Dermatitis Take 1 Tablet by mouth 2 times a day as needed for Itching. 40 Tablet 2 12/09/19 23 2023 Discontinued Fenofibrate Micronized 134 MG Oral Capsule TAKE ONE CAPSULE BY MOUTH EVERY MORNING BEFORE BREAKFAST 90 Capsule 3 04/26/20 23 2023 Discontinued Levothyroxine Sodium 100 MCG Oral Tablet (Levoxyl)Indicati ons:Acquired hypothyroidism TAKE ONE TABLET BY MOUTH DAILY AT LEAST 30 MINS PRIOR TO BREAKFAST OR OTHER MEDS 90 Tablet 3 04/26/20 23 2023 Discontinued Amitriptyline HCl 25 MG Oral Tablet (Elavil)Indicatio ns:Urinary frequency,Pelvic pain in female TAKE ONE TABLET BY MOUTH AT BEDTIME 90 Tablet 3 09/22/19 24 2023 Discontinued documented as of this encounter (statuses as of 06/30/2024) Active Problems Problem Noted Date Diagnosed Date [...] as of this encounter (statuses as of 06/30/2024) Resolved Problems Problem Noted Date Diagnosed Date [...] as of this encounter (statuses as of 06/30/2024) Immunizations Name Administration Dates Next Due Pneumococcal Conjugate Vacc, 13 Valent (Prevnar) 12/28/2014 Pneumococcal Polysaccharide PPV23 (Pneumovax) 05/14/2016,04/23/2008 Seasonal Influenza Vac., MDV , IM, 0.5 mL (Fluzone) 04/02/2015,03/29/2014,04/11/2013,04/04,04/21/2011,05/01/2010,04/16/2009 ,06/05/2008 Seasonal Influenza, High Dos e, Trivalent, PF, IM (Fluzone HD) 04/10/2016 Seasonal Influenza, Quadriva lent Hd (Fluzone Hd) [...] encounter Miscellaneous Notes * Telephone Encounter - Caitlin Izaguirre RN - 04/06/2024 10:09 AM EDT Attempted to call patient, there was no answer, left voicemail. When patient returns call, ok for JOVANY to relay message, please refer to below documentation. If needed, can transfer to dedicated nurse line. [phone] * Telephone Encounter - Hemal Franklin MD - 04/05/2024 4:37 PM EDT Her last blood counts in December were back to normal with the iron. She had the scopes done to make sure she wasn't losing blood from the GI tract. The note says it showed gastritis and she had one polyp removed but nothing real bad. Dr. Potter should have went over the scope results with her. * Telephone Encounter - Veronica Ruiz PHARM Tech - 03/31/2024 1:11 PM EDT Pt called stating she would like to speak with Dr. Franklin or a nurse. Pt said she had a colonoscopyand an endoscopy done a week ago and they told her she is anemic. Pt said she is now taking ferroussulfate but wanted to speak with pcp about it. Pt can be reached at [phone]. Thanks, Veronica Ruiz Skin Toggler [facility] 03/31/2024,1:14 PM documented in this encounter Plan of Treatment Upcoming Encounters Date Type Department Care Team (Late st Contact Info) Description 08/14/2024 2:20 PM EST Office Visit [address] [place] [phone] Avril Mcgowan PA-C [address] [place] [address] [place] [address] 02/12/2025 2:00 PM EDT Office Visit [address] [place] [phone] Avril Mcgowan PA-C [address] [place] [address] [place] [address] 05/29/2025 1:30 PM EST Imaging Radiology [address] [place] [address] Health Maintenance Due Date Last Done Comments [...] Occult Blood Test Discontinued 02/02/2002 Pneumococcal Vaccine: 65+ Years Completed 05/14/2016, 12/28/2014, 04/23/2008 Colonoscopy Discontinued [...] Not on filedocumented as of this encounter Care Teams Costume Shop Manager Relationship Specialty Start Date End Date Hemal Franklin MD [address] [place] [address] [place] [address] PCP - General Family Medicine 02/14/24 documented as of this encounter
--- OUTSIDE RECORDS SUMMARY | 2024-08-13 14:50 | External Medical Summary | Summary of Care ---
Author Name Unknown Organization [facility] Address [address] [place] [address] Phone [phone] Care Team Providers Care News Cameraman Name Role Phone Hemal Franklin MD Primary Care Provide r Encounter Details Date Type Department Care Team (Latest Contact Info) Description 11/10/2023 3:25 PM EDT - 11/10/2023 11:59 PM EDT Hospital Encounter Radiology Film File [address] [place] [address] Discharge Disposition: Home - Self Care Allergies Active Allergy Reactions Criticality Noted Date Comments Bactrim Edema Other 04/16/2009 Joint pain Morphine And Codeine 09/10/2005 Propoxyphene Napsylate 10/06/2005 Tramadol Hcl 08/23/2008 documented as of this encounter (statuses as of 03/02/2024) Medications Medication Sig Dispensed Refills Start Date End Date Status MULTIVITAMINS PO CAPS one daily 0 01/19/2007 Act staci CALCIUM 600-200 MG-UNIT PO TABS one bid 0 01/19/2007 Active FIBER-LAX 625 MG PO TABS one daily 0 01/19/2007 Active CORTISPORIN 1 % EX OINTIndications:Open wound of nose apply to each nare twice a day when needed 15 g 1 09/18/2014 Active Probiotic Product (PROBIOTIC & ACIDOPHILUS EX ST) Capsule Take 1 Cap by mouth once. Active Magnesium 500 MG Oral Capsule Take 1 Capsule by mouth in the morning. 08/13/2021 Active Azelastine HCl 0.05 % Ophthalmic Solution (Optivar)Indications: Allergic conjunctivitis of both eyes Instill into both eyes 1 Drop in the morning AND 1 Drop before bedtime. 6 mL 12 12/16/2021 Active Hydrocortisone (Perianal) 2.5 % External Cream (Anusol-HC)Indication s:Hemorrhoids, external without complications Administer into the rectum 2 times a day. 28 g 3 06/01/2022 Active Montelukast Sodium 10 MG Oral Tablet (Singulair)Indication s:Allergic rhinitis, unspecified seasonality, unspecified trigger Take 1 Tablet by mouth in the morning. 90 Tablet 1 08/10/2022 Active hydrOXYzine HCl 25 MG Oral TabletIndications:Felipe matitis Take 1 Tablet by mouth 2 times a day as needed for Itching. 40 Tablet 2 12/08/2022 Active Fenofibrate Micronized 134 MG Oral Capsule TAKE ONE CAPSULE BY MOUTH EVERY MORNING BEFORE BREAKFAST 90 Capsule 3 04/26/2023 Active Levothyroxine Sodium 100 MCG Oral Tablet (Levoxyl)Indications: Acquired hypothyroidism TAKE ONE TABLET BY MOUTH DAILY AT LEAST 30 MINS PRIOR TO BREAKFAST OR OTHER MEDS 90 Tablet 3 04/26/2023 Active Cetirizine HCl 10 MG Oral Tablet (ZyrTEC Allergy)Indications:A llergy, subsequent encounter Take 1 Tablet by mouth in the morning. 30 Tablet 5 07/02/2023 Active Simethicone 80 MG Oral Tablet Chewable Take 1 Tablet by mouth every 6 hours as needed for Gas. 07/27/2023 Active Pravastatin Sodium 20 MG Oral Tablet (Pravachol) TAKE ONE TABLET BY MOUTH IN THE MORNING 90 Tablet 3 08/26/2023 Active Potassium Chloride ER 10 MEQ Oral Tablet Extended Release TAKE TWO TABLETS BY MOUTH IN THE MORNING AND TWO TABLETS AT BEDTIME 360 Tablet 3 08/26/2023 Active Losartan Potassium 50 MG Oral Tablet (Cozaar)Indications:H TN, goal below 140/90 Take 1 Tablet by mouth in the morning. 90 Tablet 3 08/26/2023 Active Famotidine 20 MG Oral Tablet (Pepcid)Indications:R eflux esophagitis Take 1 Tablet by mouth in the morning. 90 Tablet 3 08/26/2023 Active Amitriptyline HCl 25 MG Oral Tablet (Elavil)Indications:U rinary frequency,Pelvic pain in female TAKE ONE TABLET BY MOUTH AT BEDTIME 90 Tablet 3 09/22/2023 Active Diclofenac Sodium 1 % External Gel (Voltaren)Indications :Chronic pain of right knee,DDD (degenerative disc disease), cervical Apply topically to affected area every 6 hours as needed (shoulder). 150 g 2 09/29/2023 Active busPIRone HCl 10 MG Oral Tablet (Buspar)Indications:A nxiety Take 1 Tablet by mouth in the morning and 1 Tablet before bedtime. 60 Tablet 5 10/18/2023 Active documented as of this encounter (statuses as of 03/02/2024) Active Problems Problem Noted Date Diagnosed Date Hepatic steatosis 04/09/2022 Primary osteoarthritis of left knee 10/29/2020 ADVANCE DIRECTIVE INFORMATION 05/03/2020 Overview: No, Advance Directive brochure offered , patient declined. Rectocele 05/03/2020 Cystocele, lateral 05/03/2020 Prolapse of vaginal vault after hysterectomy 03/2020 Chondrocalcinosis 07/07/2018 Chronic interstitial cystitis 11/05/2009 DYSLIPIDEMIA, GOAL LDL BELOW 100 07/04/2009 Overview: Per Lipid Taxonomy. HTN, GOAL BELOW 140/90 05/31/2009 Overview: Modified per HTN Taxonomy. 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 Myalgia and myositis 015 Acid reflux 07/07/2018 PURE HYPERCHOLESTEROLEM 06/25 Overview: Per Lipid Taxonomy. Arthritis, rheumatoid 2017 Need for prophylactic hormon e replacement therapy (postmenopausal) 03/21/2003 Herpes zoster 12/28/2014 Lateral epicondylitis 2014 Ganglion of joint 12/28/2014 Overview: left foot Impaired glucose tolerance 0 08/19/2017 documented as of this encounter (statuses as of 03/02/2024) Immunizations Name Administration Dates Next Due Pneumococcal Conjugate Vacc, 13 Valent (Prevnar) 12/28/2014 Pneumococcal Polysaccharide PPV23 (Pneumovax) 05/14/2016,04/23/2008 Seasonal Influenza, Quadriva lent Hd (Fluzone Hd) 08/10/2022 Seasonal Influenza, Split, I IV3, With Preserve, Inj 04/02/2015,03/29/2014,04/11/2013,04/04,04/21/2011,05/01/2010,04/16/2009 ,06/05/2008 Seasonal Influenza, Trivalen t, High Dose, No Preserve, IM 04/10/2016 TD - Tetanus/Diptheria (ADULT) 07/26/2000 TDAP, Age [...] money to get more. Never true 09/17/2023 Sex and Gender Information Value Date Recorded Sex Assigned at Not on file Gender Identity Not on file Sexual Orientation Not on file Job Start Date Occupation Industry Not on file Not on file Not on file documented as of this encounter Plan of Treatment Upcoming Encounters Date Type Department Care Team (Late st Contact Info) Description 05/12/2024 10:30 AM EDT Office Visit Gastroenterology [address] [place] [address] Carolina Camilo CRNP [address] [place] [address] 05/16/2024 1:30 PM EDT Imaging Radiology [address] [place] [address] 08/14/2024 2:20 PM EST Office Visit [address] [place] [phone] Avril Mcgowan PA-C [address] [place] [address] [place] [address] 02/12/2025 2:00 PM EDT Office Visit [address] [place] [phone] Avril Mcgowan PA-C [address] [place] [address] [place] [address] Health Maintenance Due Date Last Done Comments Zoster Vaccines (1 of 2) 1999 Adult Wellness Visit 03/10/2018 03/10/2017 DXA Scan 02/15/2022 02/15/2015, 10/24, 07/04/2008 COVID-19 Vaccine ( season) 2023 Diabetic Eye Exam 03/12/2024 03/12/2023, , 03/12/2023, Additional history exists Influenza Vaccine (FLU shot) (#1) 2024 08/10/2022, 04/10/2016, 04/02/2015, Additional history exists HbA1c 08/13/2024 02/11/2024, 01/23, 08/10/2022, Additional history exists Depression Screening 09/17/2024 09/17/2023 Diabetic Foot Exam 09/17/2024 09/17/2023, 0 02/05/2022, 02/16/2020, Additional history exists TSH 12/22/2024 12/23/2023, 020 02/2024, 12/08/2022, Additional history exists Albumin/Creatinine Ratio 02/10/2025 024, 01/20/2023, 11/27/2021, Additional history exists GFR 02/10/2025 02/11/2024, 11/25, 10/15/2023, Additional history exists DTaP,Tdap,and Td Vaccines (3 - Td or Tdap) 12/03/2032 12/03/2022, 09/22/2010, 07/26/2000 Fecal Occult Blood Test Discontinued 02/02/2002 Pneumococcal Vaccine: 65+ Years Completed 05/14/2016, 12/28/2014, 04/23/2008 Colonoscopy Discontinued 06/12/2022, 09/21/2017 Colorectal Cancer Screening Discontinued Sigmoidoscopy Discontinued 11/27/2022, 11/27/2022 Cologuard Discontinued HPV (Gardasil) Vaccine Aged Out [...] Not on filedocumented as of this encounter Procedures Procedure Name Priority Date/Time Associated Diagnosis Comments RADIOLOGY EXAM - MRI (IMAGES ONLY, NO REPORT) Routine 11/10/2023 3:25 PM EDT documented in this encounter Results * RADIOLOGY EXAM - MRI (IMAGES ONLY, NO REPORT) (11/10/2023 3:25 PM EDT) 11/10/2023 3:21 PM EDT Narrative Scheduling, Silent - 03/01/2024 10:49 AM EDT This is an imaging study not interpreted or resulted by a [facility] or [employer] contracted radiologist. Avril Mcgowan PA-C RAD MRI-MRA documented in this encounter Care Teams News Cameraman Relationship Specialty Start Date End Date Hemal Franklin MD [address] [place] [address] [place] [id number] PCP - General Family Medicine 08/06/15 02/04/24 documented as of this encounter
--- OUTSIDE RECORDS SUMMARY | 2024-08-13 14:50 | External Medical Summary ---
Author Name Unknown Address Unknown Organization [id number]:[facility] [place] [address] [place] [address] Laboratory Report Ordering Provider Test Date Status SHAHRIAR OLIVEIRA 06/02/2024 14:50:04 Final Observation Date Value Abnormality Reference (Units ) Status HbA1C 06/02/2024 14:50:04 7.2 Above high normal 4. 0-5.6 (%) Final The use of HbA1c to monitor glycemic status is based on normal hemoglobin and HbA composition. This test should not be used in patients with abnormal hemoglobin that affects the half life of the red blood cell or the in vivo glycation rates. Glucose, estimated average 06/02/2024 14:50:04 160 Above high normal <126 (mg/dL) Tra garner Performing Location [facility] [place] [address] [place] [address]
--- OUTSIDE RECORDS SUMMARY | 2024-08-13 14:50 | External Medical Summary ---
Author Name Unknown Address Unknown Organization K01[place] [place] [address] [place] [address] Laboratory Report Ordering Provider Test Date Status SHAHRIAR OLIVEIRA 06/02/2024 14:50:04 Final Observation Date Value Abnormality Reference (Units ) Status WBC, Total 06/02/2024 14:50:04 7.42 4.00-10.80 (K/uL) Final RBC 06/02/2024 14:50:04 3.92 3.85-5.15 (M/uL) Final Hemoglobin 06/02/2024 14:50:04 12.3 12.0-15.3 (g/dL) Final HCT 06/02/2024 14:50:04 38.0 36.0-45.2 (%) Final MCV 06/02/2024 14:50:04 96.9 81.5-97.5 (fL) Final MCH 06/02/2024 14:50:04 31.4 27.0-34.0 (pg) Final MCHC 06/02/2024 14:50:04 32.4 32.0-36.0 (g/dL) Final RDW 06/02/2024 14:50:04 12.7 11.5-15.5 (%) Final Platelets 06/02/2024 14:50:04 307 140-400 (K/uL) Final MPV 06/02/2024 14:50:04 9.2 6.6-11.1 (fL) Final Nucleated erythrocytes/100 leukocytes [Ratio] in Blood by Automated count 06/02/2024 14:50:04 0 <=0 (/100 WBCs) Final Performing Location [facility] [place] [address] [place] [address]
--- OUTSIDE RECORDS SUMMARY | 2024-08-13 14:50 | External Medical Summary | Summary of Care ---
Author Name Unknown Organization [facility] Address [address] [place] [address] Phone [phone] Care Team Providers Care Reporting Process Consultant Name Role Phone Roxanne Franklin MD Primary Care Provide r Reason for Visit * Reason Comments eRx-Medication Refill Encounter Details Date Type Department Care Team (Late st Contact Info) Description 04/18/2024 Refill Family Medicine [address] [phone] Roxanne Franklin MD [address] [place] [address] [place] [address] Acquired hypothyroidism Allergies Active Allergy Reactions Criticality Noted Date Comments Bactrim Edema Other 04/16/2009 Joint pain Morphine And Codeine 09/10/2005 Propoxyphene Napsylate 10/06/2005 Tramadol Hcl 08/23/2008 documented as of this encounter (statuses as of 04/20/2024) Medications Medication Sig Dispensed Refills Start Date End Date Status MULTIVITAMINS PO CAPS one daily 0 7 Active CALCIUM 600-200 MG-UNIT PO TABS one bid 0 7 Active FIBER-LAX 625 MG PO TABS one daily 0 7 Active CORTISPORIN 1 % EX OINTIndications:Ope n wound of nose apply to each nare twice a day when needed 15 g 1 5 Active Probiotic Product (PROBIOTIC & ACIDOPHILUS EX ST) Capsule Take 1 Cap by mouth once. Active Magnesium 500 MG Oral Capsule Take 1 Capsule by mouth in the morning. 2 Active Azelastine HCl 0.05 % Ophthalmic Solution (Optivar)Indication s:Allergic conjunctivitis of both eyes Instill into both eyes 1 Drop in the morning AND 1 Drop before bedtime. 6 mL 12 2 Active Hydrocortisone (Perianal) 2.5 % External Cream (Anusol-HC)Indicati ons:Hemorrhoids, external without complications Administer into the rectum 2 times a day. 28 g 3 2 Active Montelukast Sodium 10 MG Oral Tablet (Singulair)Indicati ons:Allergic rhinitis, unspecified seasonality, unspecified trigger Take 1 Tablet by mouth in the morning. 90 Tablet 1 3 Active hydrOXYzine HCl 25 MG Oral TabletIndications:D ermatitis Take 1 Tablet by mouth 2 times a day as needed for Itching. 40 Tablet 2 3 Active Cetirizine HCl 10 MG Oral Tablet (ZyrTEC Allergy)Indications :Allergy, subsequent encounter Take 1 Tablet by mouth in the morning. 30 Tablet 5 3 Active Simethicone 80 MG Oral Tablet Chewable Take 1 Tablet by mouth every 6 hours as needed for Gas. 4 Active Pravastatin Sodium 20 MG Oral Tablet (Pravachol) TAKE ONE TABLET BY MOUTH IN THE MORNING 90 Tablet 3 4 Active Potassium Chloride ER 10 MEQ Oral Tablet Extended Release TAKE TWO TABLETS BY MOUTH IN THE MORNING AND TWO TABLETS AT BEDTIME 360 Tablet 3 4 Active Losartan Potassium 50 MG Oral Tablet (Cozaar)Indications :HTN, goal below 140/90 Take 1 Tablet by mouth in the morning. 90 Tablet 3 4 Active Famotidine 20 MG Oral Tablet (Pepcid)Indications :Reflux esophagitis Take 1 Tablet by mouth in the morning. 90 Tablet 3 4 Active Amitriptyline HCl 25 MG Oral Tablet (Elavil)Indications :Urinary frequency,Pelvic pain in female TAKE ONE TABLET BY MOUTH AT BEDTIME 90 Tablet 3 4 Active Diclofenac Sodium 1 % External Gel (Voltaren)Indicatio ns:Chronic pain of right knee,DDD (degenerative disc disease), cervical Apply topically to affected area every 6 hours as needed (shoulder). 150 g 2 4 Active busPIRone HCl 10 MG Oral Tablet (Buspar)Indications :Anxiety Take 1 Tablet by mouth in the morning and 1 Tablet before bedtime. 60 Tablet 5 4 Active Baclofen 20 MG Oral TabletIndications:D egeneration of lumbosacral intervertebral disc Take 1 Tablet by mouth in the morning and 1 Tablet before bedtime. As needed. 30 Tablet 4 Active Atenolol 50 MG Oral Tablet (Tenormin)Indicatio ns:HTN, goal below 140/90 TAKE ONE TABLET BY MOUTH EVERY DAY 90 Tablet 3 4 Active Pantoprazole Sodium 40 MG Oral Tablet Delayed Release (Protonix)Indicatio ns:Gastroesophageal reflux disease with esophagitis without hemorrhage Take 1 Tablet by mouth in the morning and 1 Tablet before bedtime. In the morning.. 90 Tablet 3 4 Active Ondansetron HCl 4 MG Oral TabletIndications:N ausea Take 1 Tablet by mouth every 6 hours as needed for Nausea or Vomiting. 30 Tablet 4 Active Dicyclomine HCl 20 MG Oral Tablet (Bentyl)Indications :Irritable bowel syndrome with diarrhea TAKE ONE TABLET BY MOUTH FOUR TIMES DAILY NEEDED FOR ABDOMINAL PAIN 120 Tablet 11 4 Active Levothyroxine Sodium 100 MCG Oral Tablet (Levoxyl)Indication s:Acquired hypothyroidism TAKE ONE TABLET BY MOUTH DAILY AT LEAST 30 MINS PRIOR TO BREAKFAST OR OTHER MEDS 90 Tablet 2 4 Active Fenofibrate Micronized 67 MG Oral Capsule Take 1 Capsule by mouth daily before breakfast. 90 Capsule 3 4 Active Fenofibrate Micronized 134 MG Oral Capsule TAKE ONE CAPSULE BY MOUTH EVERY MORNING BEFORE BREAKFAST 90 Capsule 3 3 04/19/20 24 Discontinued Levothyroxine Sodium 100 MCG Oral Tablet (Levoxyl)Indication s:Acquired hypothyroidism TAKE ONE TABLET BY MOUTH DAILY AT LEAST 30 MINS PRIOR TO BREAKFAST OR OTHER MEDS 90 Tablet 3 3 04/19/20 24 Discontinued documented as of this encounter (statuses as of 04/20/2024) Active Problems Problem Noted Date Diagnosed Date [...] as of this encounter (statuses as of 04/20/2024) Resolved Problems Problem Noted Date Diagnosed Date [...] as of this encounter (statuses as of 04/20/2024) Immunizations Name Administration Dates Next Due Influenza, Whole Virus 07/28/2000 Pneumococcal Conjugate Vacc, 13 Valent (Prevnar) 12/28/2014 Pneumococcal Polysaccharide PPV23 (Pneumovax) 05/14/2016,04/23/2008 Seasonal Influenza, High Dos e, Trivalent, PF, IM (Fluzone HD) 04/04/2024,04/10/2016 Seasonal Influenza, Quadriva lent Hd (Fluzone Hd) 08/10/2022 Seasonal Influenza, Trivalen t, (IIV3), with Preserv, (Fluzone) 04/02/2015,03/29/2014,04/11/2013,03/26,04/21/2011,05/01/2010,04/16/20,06/05/2008,05/17/2002,07/07/2001 05/17/2003 TD - Tetanus/Diptheria (ADULT) 07/26/2000 TDAP, Age [...] encounter Miscellaneous Notes * Telephone Encounter - Doug Rubio RPh - 04/20/2024 9:47 AM EDT Called and spoke to patient Discussed dose decrease due to kidney function Pt agreeable and understood Thanks, Doug Rubio, PharmD Clinical Pharmacist [facility] [phone] 04/20/2024 9:48 AM * Telephone Encounter - Roxanne Franklin MD - 04/19/2024 12:46 PM EDT Signed Prescriptions: Disp Refills Levothyroxine Sodium 100 MCG Oral Tablet (*90 Tab*2 Sig: TAKE ONE TABLET BY MOUTH DAILY AT LEAST 30 MINS PRIOR TO BREAKFAST OR OTHER MEDS Authorizing Provider: ROXANNE FRANKLIN Ordering User: DOUG RUBIO Fenofibrate Micronized 67 MG Oral Capsule 90 Cap*3 Sig: Take 1 Capsule by mouth daily before breakfast. Rachel potts Provider: ROXANNE FRANKLIN Refused Prescriptions: Disp Refills Fenofibrate Micronized 134 MG Oral Capsule 90 Cap*3 Sig: Take 1 Capsule by mouth daily before breakfast. Refused By: DOUG RUBIO Reason for Refusal: Dose needs clarification * Telephone Encounter - Doug Rubio [facility] - 04/19/2024 12:43 PM EDTPending Prescriptions: Disp Refills Fenofibrate Micronized 67 MG Oral Capsule 90 Cap*3 Sig: Take 1 Capsule by mouth daily before breakfast. Signed Prescriptions: Disp Refills Levothyroxine Sodium 100 MCG Oral Tablet (*90 Tab*2 Sig: TAKE ONE TABLET BY MOUTH DAILY AT LEAST 30 MINS PRIOR TO BREAKFAST OR OTHER MEDS Authorizing Provider: ROXANNE VITAL Ordering User: DOUG RUBIO Refused Prescriptions: Disp Refills Fenofibrate Micronized 134 MG Oral Capsule 90 Cap*3 Sig: Take 1 Capsule by mouth daily before breakfast. Refused By: DOUG RUBIO Reason for Refusal: Dose needs clarification * Telephone Encounter - Doug Rubio RPh - 04/19/2024 12:39 PM EDT I did not refill fenofibrate 134 mg due to patient's diminished renal function: Serum creatinine: 0.9 mg/dL 02/11/24 1417 Estimated creatinine clearance: 51.6 mL/min EGFR Date Value Ref Range Status 02/11/2024 63 >=60 mL/min Final Comment: eGFR is calculated based on the CKD-EPI 2020 equation. Altered kidney function: CrCl >80 mL/minute: No dosage adjustment necessary. CrCl >30 to 80 mL/minute: Use lowest available tablet strength; do not titrate. CrCl ?30 mL/minute: Use contraindicated. New order pended for 67 mg daily. Please approve if appropriate then route back to me and I will inform patient. Thanks, Doug Rubio, PharmD Clinical Pharmacist [facility] ([facility]) [phone] 04/19/2024 12:42 PM Pending Prescriptions: Disp Refills Fenofibrate Micronized 67 MG Oral Capsule 90 Cap*3 Sig: Take 1 Capsule by mouth daily before breakfast. Last Visit: 02/11/2024 (in office), Visit date not found (telemedicine) Next Visit: 08/14/2024 If no future appointments scheduled, and last appointment is greater than a year ago, please schedule patient for a follow-up appointment Last date the medication was ordered: 04/26/23 Pharmacy: [facility], [address] [place] Is this request for a controlled substance? No Urine Drug Screen:No results found. However, due to the size of the patient record, not all encounters were searched. Please check Results Review for a complete set of results. Patient Phone Numbers Labs: Lab Results Component Value Date/Time CREAT 0.9 02/11/2024 02:17 PM CREAT 1.18 (A) 10/15/2023 12:00 AM CREAT 0.9 08/18/2019 10:05 AM POTASSIUM 4.5 02/11/2024 02:17 PM POTASSIUM 4.8 10/15/2023 12:00 AM POTASSIUM 4.3 08/18/2019 10:05 AM TSH 1.96 12/23/2023 04:28 PM TSH 1.780 09/02/2023 12:00 AM TSH 1.31 08/18/2019 10:05 AM LDL 90 02/11/2024 02:17 PM LDL 93 08/18/2019 10:05 AM LDL NOT APPLICABLE 08/18/2019 10:05 AM ALT 16 02/11/2024 02:17 PM ALT 15 08/18/2019 10:05 AM HGBA1C 7.1 (H) 02/11/2024 02:17 PM HGBA1C 6.0 (H) 02/16/2020 02:33 PM documented in this encounter Plan of Treatment Upcoming Encounters Date Type Department Care Team (Late st Contact Info) Description 05/12/2024 10:30 AM EDT Office Visit Gastroenterology [address] [place] [address] Carolina Camilo CRNP [address] [place] [address] 05/16/2024 1:30 PM EDT Imaging Radiology [address] [place] [address] 08/14/2024 2:20 PM EST Office Visit Family [address] [place] [phone] Avril Mcgowan PA-C [address] [place] [address] [place] [address] 02/12/2025 2:00 PM EDT Office Visit [address] [place] [phone] Avril Mcgowan PA-C [address] [place] [address] [place] [address] Health Maintenance Due Date Last Done Comments Zoster Vaccines (1 of 2) 1999 Adult Wellness Visit 03/10/2018 03/10/2017 DXA Scan 02/15/2022 02/15/2015, 10/24, 07/04/2008 Diabetic Eye Exam 03/12/2024 03/12/2023, , 03/12/2023, Additional history exists COVID-19 Vaccine ( season) 2024 HbA1c 08/13/2024 02/11/2024, 01/23, 08/10/2022, Additional history exists Depression Screening 09/17/2024 09/17/2023 Diabetic Foot Exam 09/17/2024 09/17/2023, 0 02/05/2022, 02/16/2020, Additional history exists TSH 12/22/2024 12/23/2023, 02/0 02/2024, 12/08/2022, Additional history exists Albumin/Creatinine Ratio 02/10/2025 024, 01/20/2023, 11/27/2021, Additional history exists GFR 02/10/2025 02/11/2024, 11/25, 10/15/2023, Additional history exists DTap/Tdap Vaccines (3 - Td or Tdap) 12/03/2032 12/03/2022, 09/22/2010, 07/26/2000 Fecal Occult Blood Test Discontinued 02/02/2002 Pneumococcal Vaccine: 65+ Years Completed 05/14/2016, 12/28/2014, 04/23/2008 Colonoscopy Discontinued 06/12/2022, 09/21/2017 Colorectal Cancer Screening Discontinued Sigmoidoscopy Discontinued 11/27/2022, 11/27/2022 Influenza Vaccine (FLU shot) Completed 04/04/2024, 08/10/2022, 04/10/2016, Additional history exists Cologuard Discontinued HPV (Gardasil) [...] as of this encounter Visit Diagnoses Diagnosis Acquired hypothyroidism Unspecified hypothyroidism documented in this encounter Care Teams Reporting Process Consultant Relationship Specialty Start Date End Date Roxanne Franklin MD [address] [place] [address] [place] [address] PCP - General Family Medicine 02/14/24 documented as of this encounter
--- OUTSIDE RECORDS SUMMARY | 2024-08-13 14:50 | External Medical Summary | Summary of Care ---
Author Name Unknown Organization [facility] Address [address] [facility] [place] [address] Phone [phone] Care Team Providers Care Lining Printer Name Role Phone Hemal Franklin MD Primary Care Provide r Reason for Visit * Reason Onset Date Comments Medication Administration 04/04/2024 Flu an d/or Pneumo Inj Encounter Details Date Type Department Care Team (Late st Contact Info) Description 04/04/2024 11:00 AM EDT Immunization Ancillary [address] [place] [address] [place], Nurse [address] [place] [address] Need for prophylactic vaccination and inoculation against influenza* Allergies Active Allergy Reactions Criticality Noted Date Comments Bactrim Edema Other 04/16/2009 Joint pain Morphine And Codeine 09/10/2005 Propoxyphene Napsylate 10/06/2005 Tramadol Hcl 08/23/2008 documented as of this encounter (statuses as of 04/04/2024) Medications Medication Sig Dispensed Refills Start Date [...] before bedtime. 60 Tablet 5 10/18/2023 Active Baclofen 20 MG Oral TabletIndications:Deg eneration of lumbosacral intervertebral disc Take 1 Tablet by mouth in the morning and 1 Tablet before bedtime. As needed. 30 Tablet 12/03/2023 Active Atenolol 50 MG Oral Tablet (Tenormin)Indications :HTN, goal below 140/90 TAKE ONE TABLET BY MOUTH EVERY DAY 90 Tablet 3 12/24/2023 Active Pantoprazole Sodium 40 MG Oral Tablet Delayed Release (Protonix)Indications :Gastroesophageal reflux disease with esophagitis without hemorrhage Take 1 Tablet by mouth in the morning and 1 Tablet before bedtime. In the morning.. 90 Tablet 3 12/23/2023 Active Ondansetron HCl 4 MG Oral TabletIndications:Prem sea Take 1 Tablet by mouth every 6 hours as needed for Nausea or Vomiting. 30 Tablet 02/11/2024 Active Dicyclomine HCl 20 MG Oral Tablet (Bentyl)Indications:I rritable bowel syndrome with diarrhea TAKE ONE TABLET BY MOUTH FOUR TIMES DAILY NEEDED FOR ABDOMINAL PAIN 120 Tablet 11 02/23/2024 Active documented as of this encounter (statuses as of 04/04/2024) Active Problems Problem Noted Date Diagnosed Date [...] as of this encounter (statuses as of 04/04/2024) Resolved Problems Problem Noted Date Diagnosed Date [...] as of this encounter (statuses as of 04/04/2024) Immunizations Name Administration Dates Next Due Pneumococcal Conjugate Vacc, 13 Valent (Prevnar) 12/28/2014 Pneumococcal Polysaccharide PPV23 (Pneumovax) 05/14/2016,04/23/2008 Seasonal Influenza, High Dos e, Trivalent, PF, IM (Fluzone HD) 04/04/2024,04/10/2016 Seasonal Influenza, Quadriva lent Hd (Fluzone Hd) 08/10/2022 Seasonal Influenza, Trivalen t, (IIV3), with Preserv, (Fluzone) 04/02/2015,03/29/2014,04/11/2013,04/04,04/21/2011,05/01/2010,04/16/2009 ,06/05/2008 TD - Tetanus/Diptheria (ADULT) 07/26/2000 TDAP, Age [...] on file documented as of this encounter Progress Notes * Deanna Anders LPN - 04/04/2024 10:50 AM EDT PRE - ADMINISTRATION DOCUMENTATION Are you experiencing any cold symptoms or fever? No Have you had Guillain-Gowrie Syndrome (an illness that causes paralysis) within the last 6 weeks? No Have you had the flu shot in the past? YES Have you ever had a reaction to the flu shot? No Deanna Anders LPN, 04/04/2024 10:49 AM Immunization Administration Documentation Time Out Procedure Performed: Yes Patient Identified (Ask Name/Date of ): Yes Does the patient have a fever greater than 101 degrees today? No Patient allergic to latex? No VFC Stock: No Immunization(s) verified: Yes, Immunization Name: Flu, VIS Sheet(s) given: Yes Verified Side and Site: Yes Verified Shot(s) with Parent(s)/Patient: Yes documented in this encounter Plan of Treatment Upcoming Encounters Date Type Department Care Team (Late st Contact Info) Description 05/12/2024 10:30 AM EDT Office Visit Gastroenterology [address] [place] [address] Carolina Camilo CRNP [address] [place] [address] 05/16/2024 1:30 PM EDT Imaging Radiology [address] [place] [address] 08/14/2024 2:20 PM EST Office Visit Family [address] [place] [phone] Avril Mcgowan PA[address] [place] [address] 02/12/2025 2:00 PM EDT Office Visit Family Medicine [address] [phone] Avril Mcgowan PA[address] [place] [address] Health Maintenance Due Date Last Done Comments [...] 02/16/2020, Additional history exists TSH 12/22/2024 12/23/2023, 02/2024, 12/08/2022, Additional history exists Albumin/Creatinine Ratio [...] as of this encounter Visit Diagnoses Diagnosis Need for prophylactic vaccination and inoculation against influenza- Primary documented in this encounter Care Teams Lining Printer Relationship Specialty Start Date End Date Hemal Franklin MD [address] [place] [address] [place] [address] PCP - General Family Medicine 02/14/24 documented as of this encounter
--- OUTSIDE RECORDS SUMMARY | 2024-08-13 14:50 | External Medical Summary | Summary of Care ---
Author Name Unknown Organization [facility] Address [address] [facility] [place] [address] Phone [phone] Care Team Providers Care Real Estate Sales Associate Name Role Phone Hemal Franklin MD Primary Care Provide r Reason for Visit * Reason Onset Date Comments Advice 05/30/2024 Encounter Details Date Type Department Care Team (Late st Contact Info) Description 05/30/2024 Telephone Family [address] [phone] Hemal Franklin MD [address] [place] [address] [place] [id number] Advice Allergies Active Allergy Reactions Criticality Noted Date Comments Bactrim Edema Other 04/16/2009 Joint pain Morphine And Codeine 09/10/2005 Propoxyphene Napsylate 10/06/2005 Tramadol Hcl 08/23/2008 documented as of this encounter (statuses as of 05/31/2024) Medications Medication Sig Dispensed Refills Start Date [...] the morning. 90 Tablet 1 08/10/2022 Active Cetirizine HCl 10 MG Oral Tablet [...] ABDOMINAL PAIN 120 Tablet 11 02/23/2024 Active Levothyroxine Sodium 100 MCG Oral Tablet (Levoxyl)Indications: Acquired hypothyroidism TAKE ONE TABLET BY MOUTH DAILY AT LEAST 30 MINS PRIOR TO BREAKFAST OR OTHER MEDS 90 Tablet 2 04/19/2024 Active Fenofibrate Micronized 67 MG Oral Capsule Take 1 Capsule by mouth daily before breakfast. 90 Capsule 3 04/19/2024 Active hydrOXYzine HCl 25 MG Oral TabletIndications:Felipe matitis TAKE ONE TABLET BY MOUTH TWICE DAILY 40 Tablet 2 05/22/2024 Active documented as of this encounter (statuses as of 05/31/2024) Active Problems Problem Noted Date Diagnosed Date [...] as of this encounter (statuses as of 05/31/2024) Resolved Problems Problem Noted Date Diagnosed Date Resolved Date ADVANCE DIRECTIVE INFORMATION 05/03/2020 05/29/2024 Overview: No, Advance Directive brochure offered , [...] as of this encounter (statuses as of 05/31/2024) Immunizations Name Administration Dates Next Due Pneumococcal [...] encounter Miscellaneous Notes * Telephone Encounter - Skyler Forrest LPN - 05/31/2024 3:32 PM EST Patient returning call. She stopped taking Iron tablet weeks ago due to causing Nausea. Scheduled appt with Hemal Franklin MD on 06/02 at 2:20 PM * Telephone Encounter - Bhavna Upton OSA - 05/31/2024 3:29 PM EST Patient called back sent to ded nurse line I tried to call pt- no answer. Will need to continue trying. * Telephone Encounter - Fariba Caraballo LPN - 05/31/2024 3:25 PM EST I tried to call pt- no answer. Will need to continue trying. * Telephone Encounter - Hemal Franklin MD - 05/30/2024 4:56 PM EST Her anemia was resolved on follow-up labs in January after taking the iron. Recommend appointment for evaluation * Telephone Encounter - Dayana Aviles OSA - 05/30/2024 10:50 AM EST Pt is calling because she has been feeling very fatigued. When she had her colonoscopy she was toldshe was anemic. She was taking iron, but did not notice a difference and it was bothering her stomach so she stopped taking it. She is not sure if her low counts is what is making her so tired. She also has a lot of knee pain and has gotten the gel injections in both knees. She takes Tylenol for the pain, but does not know if there is something else that she could take to help with her arthritis pain. Please advise documented in this encounter Plan of Treatment Upcoming Encounters Date Type Department Care Team (Late st Contact Info) Description 06/02/2024 2:20 PM EST Office Visit [address] [phone] Hemal Franklin MD [address] [place] [address] [place] [address] 08/14/2024 2:20 PM EST Office Visit [address] [place] [phone] Avril Mcgowan PA-C [address] [place] [address] [place] [address] 02/12/2025 2:00 PM EDT Office Visit [address] [place] [phone] Avril Mcgowan PA-C [address] [place] [address] [place] [address] 05/29/2025 1:30 PM EST Imaging Radiology [address] [place] [address] Health Maintenance Due Date Last Done Comments Zoster Vaccines (1 of 2) 1999 Adult Wellness Visit 03/10/2018 03/10/2017 DXA Scan 02/15/2022 02/15/2015, 10/24, 07/04/2008 COVID-19 Vaccine ( season) 2024 HbA1c 08/13/2024 02/11/2024, 01/23, 08/10/2022, Additional history exists Depression Screening 09/17/2024 09/17/2023 Diabetic Foot Exam 09/17/2024 09/17/2023, 0 02/05/2022, 02/16/2020, Additional history exists TSH 12/22/2024 12/23/2023, 020 02/2024, 12/08/2022, Additional history exists Albumin/Creatinine Ratio 02/10/2025 024, 01/20/2023, 11/27/2021, Additional history exists GFR 02/10/2025 02/11/2024, 11/25, 10/15/2023, Additional history exists Diabetic Eye Exam 05/16/2025 05/16/2024, , 03/12/2023, Additional history exists DTap/Tdap Vaccines (3 - [...] filedocumented as of this encounter Care Teams Real Estate Sales Associate Relationship Specialty Start Date End Date Hemal Franklin MD [address] [place] [address] [place] [address] PCP - General Family Medicine 02/14/24 documented as of this encounter
--- OUTSIDE RECORDS SUMMARY | 2024-08-13 14:50 | External Medical Summary | Summary of Care ---
Author Name Unknown Organization [facility] Address [address] [place] [address] Phone [phone] Care Team Providers Care Electrical Experimental Mechanic Name Role Phone Hemal Franklin MD Primary Care Provide r Encounter Details Date Type Department Care Team (Late st Contact Info) Description 04/06/2024 Result Scan Unspecified Department <No scans attached> Allergies Active Allergy Reactions Criticality Noted Date Comments Bactrim Edema Other 04/16/2009 Joint pain Morphine And Codeine 09/10/2005 Propoxyphene Napsylate 10/06/2005 Tramadol Hcl 08/23/2008 documented as of this encounter (statuses as of 04/10/2024) Medications Medication Sig Dispensed Refills Start Date [...] as of this encounter (statuses as of 04/10/2024) Active Problems Problem Noted Date Diagnosed Date [...] as of this encounter (statuses as of 04/10/2024) Resolved Problems Problem Noted Date Diagnosed Date [...] as of this encounter (statuses as of 04/10/2024) Immunizations Name Administration Dates Next Due Pneumococcal [...] 05/12/2024 10:30 AM EDT Office Visit Gastroenterology [address] [place] [address] Carolina Camilo CRNP [address] [place] [address] 05/16/2024 1:30 PM EDT Imaging Radiology [address] [place] [address] 08/14/2024 2:20 PM EST Office Visit [address] [place] [phone] Avril Mcgowan PA-C [address] [place] [address] [place] [address] 02/12/2025 2:00 PM EDT Office Visit [address] [place] [phone] Avril Mcgowan PA-C [address] [place] [address] [place] [address] Health Maintenance Due Date Last Done Comments [...] Name Priority Date/Time Associated Diagnosis Comments RADIOLOGY SCANNED RESULT 04/06/2024 documented in this encounter Results * RADIOLOGY SCANNED RESULT (04/06/2024) 04/06/2024 No Physician Data Unknown DIAGNOSTIC RAD IOLOGY SERVICES documented in this encounter Care Teams Electrical Experimental Mechanic Relationship Specialty Start Date End Date Hemal Franklin MD [address] [place] [address] [place] [address] PCP - General Family Medicine 02/14/24 documented as of this encounter
--- OUTSIDE RECORDS SUMMARY | 2024-08-13 14:50 | External Medical Summary | Summary of Care ---
Author Name Unknown Organization [facility] Address [address] [address] Phone [phone] Care Team Providers Care [place] Tribunal Member Name Role Phone Hemal Franklin MD Primary Care Provide r Reason for Visit * Reason Comments Re-Check Encounter Details Date Type Department Care Team (Late st Contact Info) Description 06/02/2024 2:20 PM EST Office Visit Family Medicine [address] [phone] Hemal Franklin MD [address] [place] [address] [place] [id number] Fatigue, unspecified type*; Other iron deficiency anemia; Diabetic peripheral neuropathy (HCC); Urinary frequency; Pelvic pain in female; Type 2 diabetes mellitus with hemoglobin A1c goal of less than 8.0% (HCC); Acquired hypothyroidism; Acute non-recurrent maxillary sinusitis Allergies Active Allergy Reactions Criticality Noted Date Comments Bactrim Edema Other 04/16/2009 Joint pain Morphine And Codeine 09/10/2005 Propoxyphene Napsylate 10/06/2005 Tramadol Hcl 08/23/2008 documented as of this encounter (statuses as of 06/02/2024) Medications MULTIVITAMINS PO CAPS one daily 0 [...] until gone 6 Tablet 06/02/20 24 Active Amitriptyline HCl 25 MG Oral Tablet (Elavil)Indicatio ns:Urinary frequency,Pelvic pain in female TAKE ONE TABLET BY MOUTH AT BEDTIME 90 Tablet 3 09/22/19 24 2023 Discontinued documented as of this encounter (statuses as of 06/02/2024) Active Problems Problem Noted Date Diagnosed Date [...] as of this encounter (statuses as of 06/02/2024) Resolved Problems Problem Noted Date Diagnosed Date [...] as of this encounter (statuses as of 06/02/2024) Immunizations Name Administration Dates Next Due Pneumococcal [...] 09/17/2023 Does the household have a re lar source of income? (Household - for ages [...] on file documented as of this encounter Last Filed Vital Signs Vital Sign Reading Time Taken Comments Blood Pressure 130/62 06/02/2024 2:10 PM EST Pulse 58 06/02/2024 2:10 PM EST Temperature 36.1 C (97 F) 06/02/2024 2:10 PM EST Respiratory Rate - - Oxygen Saturation 99% 06/02/2024 2:10 PM EST Inhaled Oxygen Concentration - - Weight 71.2 kg (157 lb) 06/02/2024 2:10 PM EST Height - - Body Mass Index 24.96 02/11/2024 1:35 PM EDT documented in this encounter Progress Notes * Hemal Franklin MD - 06/02/2024 2:23 PM EST Subjective: Kyra Mendoza is a 74 year old female. Chief Complaint Patient presents with Re-Check HPI: Brief Clinical History Ms. Mendoza is a 74 year old female last seen in Family Medicine [facility] on 02/11/2024 by Hemal Franklin She has a h/o the following chronic conditions indicated on the problem list: Chronic Conditions None Has been feeling very tired. Stopped taking iron supplement about one month ago because it was causing nausea. Has ongoing nausea even after stopping the iron. She had an EGD and colonoscopy 03/24/[address] Potter and had a tubular adenoma removed from the colon. Is taking pantoprazole and famotidine. Knees bother her a lot at night. Following with Dr. Lu and having injections in her knees. She just had injections but the last two have not really helped. Has been using Voltaren gel an uses it when it is really hurting. Is out of it right now. The knee pain keeps her up all night. Her neck and low back hurt her as well. Lumbar x-ray showed arthritis. Was going to see a back surgeon but canceled. Does not want to have injections done at this time. Her lumbar x-ray showed mild to moderatebilateral hip arthritis too. Has numbness and tingling in her feet. Bothers her a lot at night. Did not tolerate gabapentin in the past. Is on amitriptyline 25 mg at night for a long time. Has been getting sores in her nose, congestion, and scabbing/bleeding of her nose. Worried she has a sinus infection. Has a terrible smell in her nose. Has a slight cough. Has sinus pressure and headaches. Started putting an ointment on the sore in her right nares. Is not using any nasal sprays. Results for orders placed or performed in visit on 02/11/24 ALBUMIN / CREATININE RATIO, URINE Result Value Ref Range Albumin, Random Urine <1.20 mg/dL Creatinine, Random Urine 50 mg/dL Albumin / Creatinine Ratio, Urine <24 <30 mg/g Creat HEMOGLOBIN A1C Result Value Ref Range Hemoglobin A1C 7.1 (H) 4.0 - 5.6 % Estimated Average Glucose 157 (H) <126 mg/dL LIPID PANEL WITH DIRECT LDL IF TG IS HIGH Result Value Ref Range Triglycerides 179 (H) <=174 mg/dL Cholesterol 153 <200 mg/dL HDL Cholesterol 27 (L) >49 mg/dL Non-HDL Cholesterol 126 <=159 mg/dL LDL Cholesterol 90 <=129 mg/dL COMPREHENSIVE METABOLIC PANEL Result Value Ref Range BUN 17 6 - 20 mg/dL CREATININE 0.9 0.5 - 1.0 mg/dL EGFR 63 >=60 mL/min SODIUM 135 135 - 146 mmol/L POTASSIUM 4.5 3.5 - 5.1 mmol/L CHLORIDE 102 98 - 107 mmol/L CO2 23 22 - 32 mmol/L ANION GAP 10 7 - 15 mmol/L GLUCOSE 178 (H) 70 - 120 mg/dL Albumin 4.1 3.8 - 5.0 g/dL AST 35 10 - 35 U/L Alkaline Phosphatase 56 35 - 130 U/L Bilirubin, Total <0.2 <=1.2 mg/dL CALCIUM 9.3 8.4 - 10.2 mg/dL Protein 6.7 6.0 - 8.3 g/dL ALT 16 10 - 35 U/L *Note: Due to a large number of results and/or encounters for the requested time period, some results have not been displayed. A complete set of results can be found in Results Review. PHM: Patient Active Problem List Diagnosis Acquired hypothyroidism Reflux esophagitis GENERALIZED ANXIETY DIS Irritable bowel syndrome LUMB-LUMBOSAC DISC DEGEN Mixed urge and stress incontinence HTN, GOAL BELOW 140/90 DYSLIPIDEMIA, GOAL LDL BELOW 100 Chronic interstitial cystitis LBBB (left bundle branch block) Allergic rhinitis Type 2 diabetes mellitus with hemoglobin A1c goal of less than 8.0% (HCC) Chondrocalcinosis Rectocele Cystocele, lateral Prolapse of vaginal vault after hysterectomy Primary osteoarthritis of left knee Hepatic steatosis Diabetic peripheral neuropathy (HCC) Current Outpatient Medications Medication Sig Dispense Refill MULTIVITAMINS PO CAPS one daily 0 CALCIUM 600-200 MG-UNIT PO TABS one bid 0 FIBER-LAX 625 MG PO TABS one daily 0 CORTISPORIN 1 % EX OINT apply to each nare twice a day when needed 15 g 1 Probiotic Product (PROBIOTIC & ACIDOPHILUS EX ST) Capsule Take 1 Cap by mouth once. Magnesium 500 MG Oral Capsule Take 1 Capsule by mouth in the morning. Azelastine HCl 0.05 % Ophthalmic Solution (Optivar) Instill into both eyes 1 Drop in the morning AND 1 Drop before bedtime. 6 mL 12 Hydrocortisone (Perianal) 2.5 % External Cream (Anusol-HC) Administer into the rectum 2 times a day. 28 g 3 Montelukast Sodium 10 MG Oral Tablet (Singulair) Take 1 Tablet by mouth in the morning. 90 Tablet 1 Cetirizine HCl 10 MG Oral Tablet (ZyrTEC Allergy) Take 1 Tablet by mouth in the morning. 30 Tablet 5 Simethicone 80 MG Oral Tablet Chewable Take 1 Tablet by mouth every 6 hours as needed for Gas. Pravastatin Sodium 20 MG Oral Tablet (Pravachol) TAKE ONE TABLET BY MOUTH IN THE MORNING 90 Tablet 3 Potassium Chloride ER 10 MEQ Oral Tablet Extended Release TAKE TWO TABLETS BY MOUTH IN THE MORNING AND TWO TABLETS AT BEDTIME 360 Tablet 3 Losartan Potassium 50 MG Oral Tablet (Cozaar) Take 1 Tablet by mouth in the morning. 90 Tablet 3 Famotidine 20 MG Oral Tablet (Pepcid) Take 1 Tablet by mouth in the morning. 90 Tablet 3 Diclofenac Sodium 1 % External Gel (Voltaren) Apply topically to affected area every 6 hours as needed (shoulder). 150 g 2 busPIRone HCl 10 MG Oral Tablet (Buspar) Take 1 Tablet by mouth in the morning and 1 Tablet before bedtime. 60 Tablet 5 Baclofen 20 MG Oral Tablet Take 1 Tablet by mouth in the morning and 1 Tablet before bedtime. As needed. 30 Tablet 0 Atenolol 50 MG Oral Tablet (Tenormin) TAKE ONE TABLET BY MOUTH EVERY DAY 90 Tablet 3 Pantoprazole Sodium 40 MG Oral Tablet Delayed Release (Protonix) Take 1 Tablet by mouth in the morning and 1 Tablet before bedtime. In the morning.. 90 Tablet 3 Ondansetron HCl 4 MG Oral Tablet Take 1 Tablet by mouth every 6 hours as needed for Nausea or Vomiting. 30 Tablet 0 Dicyclomine HCl 20 MG Oral Tablet (Bentyl) TAKE ONE TABLET BY MOUTH FOUR TIMES DAILY NEEDED FOR ABDOMINAL PAIN 120 Tablet 11 Levothyroxine Sodium 100 MCG Oral Tablet (Levoxyl) TAKE ONE TABLET BY MOUTH DAILY AT LEAST 30 MINS PRIOR TO BREAKFAST OR OTHER MEDS 90 Tablet 2 Fenofibrate Micronized 67 MG Oral Capsule Take 1 Capsule by mouth daily before breakfast. 90 Capsule 3 hydrOXYzine HCl 25 MG Oral Tablet TAKE ONE TABLET BY MOUTH TWICE DAILY 40 Tablet 2 Amitriptyline HCl 50 MG Oral Tablet (Elavil) Take 1 Tablet by mouth at bedtime. 90 Tablet 1 Azithromycin 250 MG Oral Tablet (Zithromax Z-Yemi) Take two tablets by mouth on first day, then 1 tablet daily until gone 6 Tablet 0 No current facility-administered medications for this visit. Past Medical History: Diagnosis Date Acute cystitis 09/14/14 >100,000 E coli resistant to ampicillin, Cipro, Levaquin, Bactrim Acute duodenal ulcer without mention of hemorrhage, perforation, or obstruction Allergic rhinitis Arthritis, rheumatoid (HCC) Back disorder Chronic interstitial cystitis Closed fracture of one or more phalanges of foot 03/29/09 left big toe Degeneration of lumbosacral intervertebral disc Dyslipidemia, goal LDL below 160 Ganglion of joint left foot Generalized anxiety disorder Herpes zoster 04/04/01 Impaired glucose tolerance Influenza A 10/04/15 nasal swab Irritable bowel syndrome Lateral epicondylitis 01/11/97 LBBB (left bundle branch block) [facility] Mixed urge and stress incontinence Myalgia and myositis Need for prophylactic hormone replacement therapy (postmenopausal) Other specified acquired hypothyroidism 03/05/03 TSH 5.75, Levoxyl 100 mcg started Primary localized osteoarthrosis of shoulder region Pyogenic arthritis of lower leg ([facility]) 1985 septic arthritis of right knee Reflux esophagitis Type 2 diabetes mellitus with hemoglobin A1c goal of less than 8.0% ([facility]) Past Surgical History: Procedure Laterality Date CYSTOSCOPY 03/03/2006 urodyanmics DUPLEX CAROTID BILAT 06/18/1999 16-49% stenosis of PICA both sides IOF XR HIP, UNILAT, 2 3 VIEWS, INCLUDING AP PELVIS 02/28/2001 PAH- left normal MAMMOGRAM - BILATERAL 12/08/1999 normal MAMMOGRAM - BILATERAL 06/25/1994 normal MRI FOOT W WO CONTRAST 03/15/2008 ganglion cyst left talus, Clfd MRI L SPINE WO CONTRAST 11/20/1994 MRI Lumbar Spine showed severe disc degeneration L5-S1 with mild left disc bulge PA COLSC FLX W/RMVL OF TUMOR POLYP LESION SNARE TQ N/A 05/2022 Tubulovillous adenomatous polyp PA COLSC FLX W/RMVL OF TUMOR POLYP LESION SNARE TQ N/A 05/2022 Dr. Potter. 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 Repeat 1 year TOTAL ABD HYSTERECTOMY W/WO REMOVAL OF TUBE(S) still has left ovary XR PELVIS COMPLETE 02/28/2001 PAH- normal Social History Socioeconomic History Marital status: Spouse name: Not on file Number of children: Not on file Years of education: Not on file Highest education level: Not on file Occupational History Not on file Tobacco Use Smoking status: Never Smokeless tobacco: Never Vaping Use Vaping status: Never Used Substance and Sexual Activity Alcohol use: No Drug use: No Sexual activity: Not on file Other Topics Concern Not on file Social History Narrative Not on file Social Needs Financial Resource Strain: Low Risk (09/17/2023) Financial Resource Strain Do you have any trouble paying for your medications, or do you think you might in the future? (Adult - for ages 18 years and over): No Does your family have trouble paying for medicine? (Household - for ages 0-17 years): Not on file Food Insecurity: No Food Insecurity (09/17/2023) Food Insecurity Do you need food for this week? (Adult - for ages 18 years and over): No Are you able to get enough food for your family? (Household - for ages 0-17 years): Not on file Does your family need food this week? (Household - for ages 0-17 years): Not on file Do you always have enough food for your family? (Household - for ages 0-17 years): Not on file Transportation Needs: No Transportation Needs (09/17/2023) Transportation Needs Do you have trouble getting a ride to medical visits or work? (Adult - for ages 18 years and over):Never True Does your family have a hard time getting a ride to doctors visits? (Household - for ages 0-17 years): Not on file Has lack of transportation kept you from medical appointments, meetings, work, or from getting things needed for daily living? Check all that apply. (Adult - for ages 18 years and over): Not on file Do you (or your family) have trouble finding or paying for a ride (transportation)? (Household - for ages 0-17 years): Not on file Social Connections: Socially Integrated (09/17/2023) Social Connections How often do you feel lonely or isolated from those around you? (Adult - for ages 18 years and over): Sometimes Housing Stability: Low Risk (09/17/2023) Housing Stability Do you currently live in a long-term or have no steady place to sleep at night? (Adult - for ages 18 years and over): No Do you think you are at risk of becoming homeless? (Adult - for ages 18 years and over): No Does your family worry about paying for your home or becoming homeless? (Household - for ages 0-17 years): Not on file Are you homeless or worried that you might be in the future? (Adult - for ages 18 years and over): Not on file Are you (or your family) homeless or worried that you might be in the future? (Household - for ages0-17 years): Not on file Review of patient's allergies indicates: Allergen Reactions Bactrim Edema Other Joint pain Morphine And Codeine Propoxyphene Napsylate Ultram [Tramadol Hcl] Objective: BP 130/62 | Pulse 58 | Temp 36.1 C (97 F) (Tympanic) | Wt 71.2 kg (157 lb) | SpO2 99% | BMI 24.96 kg/m | BSA 1.83 m Physical Exam: General: alert, healthy, no distress, well nourished, and well developed Head: Normocephalic, No masses, lesions, tenderness or abnormalities Eye Exam: PERRLA, extraocular movements intact, conjunctiva are pink and non- injected, sclera clear Ears: External ears normal, Canals clear, TM's Normal Nose: mucosal edema, mucosal erythema, sinus tenderness, +scabbed lesion of right internal nares Oropharynx: no exudate, no erythema, lips, buccal mucosa, and tongue normal, and mucous membranes are moist Neck: supple, no adenopathy, no bruits Heart: regular rate & rhythm, no murmur, and no gallops Lungs: chest symmetric with normal AP diameter, no chest deformities noted, no chest wall tenderness, lungs clear to auscultation Extremities: no edema, no clubbing, no cyanosis, +valgus deformity of bilateral knees Neuro Exam: alert & oriented x 3 with fluent speech, no focal motor/sensory deficits Extensive ROS Constitutional (f/c/wt/vision/hearing): see above hpi Resp (cough/sob/miller): see above hpi CV (cp/palp/fluttering/diaphoresis/miller/pnd):Negative GI (n/v/d/hrtburn): see above hpi Endo (hair/cold or heat intol/ 3 p's): see above hpi Neuro (shaking/weak/fatigu/parasthesi/): see above hpi Skin (rash/easy bruis/xerosis): Negative Psy (si/hi/halluc/): stable (nocturia/hesit/drib/sexual review): Negative Lymph (swollen glands/b sx's/: Negative ASSESSMENT: Fatigue, unspecified type (Primary)--check labs. - CBC WITH WBC DIFFERENTIAL; Future; Expected date: 06/02/2024 - TSH WITH FREE T4 IF INDICATED; Future; Expected date: 06/02/2024 - COMPREHENSIVE METABOLIC PANEL; Future; Expected date: 06/02/2024 Other iron deficiency anemia--Stopped her iron about 1 month ago due to GI upset. May need to see hematology for iron infusions if iron is low. Had EGD and colonoscopy 03/24/24 that showed minor gastritis and had one colon polyp removed that was a tubular adenoma. Check labs today. - IRON SCREEN, INCLUDING TIBC; Future; Expected date: 06/02/2024 - FERRITIN; Future; Expected date: 06/02/2024 Diabetic peripheral neuropathy (HCC)--declines EMG. Did not tolerate gabapentin in the past. Increase amitriptyline to 50 mg at bedtime. Has taken 25 mg for a long time. Urinary frequency - Amitriptyline HCl 50 MG Oral Tablet (Elavil); Take 1 Tablet by mouth at bedtime. Pelvic pain in female - Amitriptyline HCl 50 MG Oral Tablet (Elavil); Take 1 Tablet by mouth at bedtime. Type 2 diabetes mellitus with hemoglobin A1c goal of less than 8.0% ([facility])--diet controlled. Check A1C. - HEMOGLOBIN A1C; Future; Expected date: 06/02/2024 Acquired hypothyroidism--check labs. - TSH WITH FREE T4 IF INDICATED; Future; Expected date: 06/02/2024 Acute non-recurrent maxillary sinusitis--continue ointment to nares sore. - Azithromycin 250 MG Oral Tablet (Zithromax Z-Yemi); Take two tablets by mouth on first day, then 1tablet daily until gone Follow Up: Return as scheduled. PLAN: Continue present medication(s): Begin medications--Zithromax for sinusitis. Change dose of medication(s) to increase amitriptyline to 50 mg at bedtime for sleep and nerve pain. Poor sleep could be contributing to fatigue. Schedule labs: CBC w/diff, iron screen, ferritin, TSH, CMP, A1c, and lipid panel Patient education: Discussed lab testing, amitriptyline change, Zithromax for sinusitis. Discussed possible need for iron infusions. Not tolerating oral iron. Just had EGD without findings to explainongoing nausea. Recommend avoiding NSAIDs and using Tylenol and Voltaren gel for knee pain. Follow up: As scheduled. Hemal Franklin MD documented in this encounter Nursing Notes * Carmel Corbett LPN - 06/02/2024 2:09 PM EST Stopped iron due to nausea but still has nausea Doesn't feel good Very fatigued Knee pain Doesn't sleep at night documented in this encounter Plan of Treatment Upcoming Encounters Date Type Department Care Team (Late st Contact Info) Description 08/14/2024 2:20 PM EST Office Visit [facility] Medicine [address] [place] [phone] Avril Mcgowan PA-C [address] [place] [address] [place] [address] 02/12/2025 2:00 PM EDT Office Visit Family Medicine [address] [place] [phone] Avril Mcgowan PA-C [address] [place] [address] [place] [address] 05/29/2025 1:30 PM EST Imaging Radiology [address] [place] [address] Pending Results Name Type Priority Associated Diagnoses Date /Time CBC WITH WBC DIFFERENTIAL Lab Routine Fatigue, unspecified type 06/02/2024 2:50 PM EST TSH WITH FREE T4 IF INDICATED Lab Routine Fatigue, unspecified type Acquired hypothyroidism 06/02/2024 2:50 PM EST IRON SCREEN, INCLUDING TIBC Lab Routine Other iron deficiency anemia 06/02/2024 2:50 PM EST FERRITIN Lab Routine Other iron deficiency anemia 06/02/2024 2:50 PM EST COMPREHENSIVE METABOLIC PANEL Lab Routine Fatigue, unspecified type 06/02/2024 2:50 PM EST HEMOGLOBIN A1C Lab Routine Type 2 diabetes mellitus with hemoglobin A1c goal of less than 8.0% (HCC) 06/02/2024 2:50 PM EST Scheduled Orders Name Type Priority Associated Diagnoses Orde r Schedule CBC WITH WBC DIFFERENTIAL Lab Routine Fatigue, unspecified type Expected: 06/02/2024 (Approximate), Expires: 06/02/2025 TSH WITH FREE T4 IF INDICATED Lab Routine Fatigue, unspecified type Acquired hypothyroidism Expected: 06/02/2024 (Approximate), Expires: 06/02/2025 IRON SCREEN, INCLUDING TIBC Lab Routine Other iron deficiency anemia Expected: 06/02/2024 (Approximate), Expires: 06/02/2025 FERRITIN Lab Routine Other iron deficiency anemia Expected: 06/02/2024 (Approximate), Expires: 06/02/2025 COMPREHENSIVE METABOLIC PANEL Lab Routine Fatigue, unspecified type Expected: 06/02/2024 (Approximate), Expires: 06/02/2025 HEMOGLOBIN A1C Lab Routine Type 2 diabetes mellitus with hemoglobin A1c goal of less than 8.0% (HCC) Expected: 06/02/2024 (Approximate), Expires: 06/02/2025 Health Maintenance Due Date Last Done Comments [...] as of this encounter Visit Diagnoses Diagnosis Fatigue, unspecified type- Primary Other iron deficiency anemia Diabetic peripheral neuropathy (HCC) Type II or unspecified type diabetes mellitus with neurological manifestations, not stated as uncontrolled Urinary frequency Pelvic pain in female Unspecified symptom associated with female genital organs Type 2 diabetes mellitus with hemoglobin A1c goal of less than 8.0% (HCC) Acquired hypothyroidism Unspecified hypothyroidism Acute non-recurrent maxillary sinusitis Screening mammogram for breast cancer documented in this encounter Care Teams [place] Tribunal Member Relationship Specialty Start Date End Date Hemal Franklin MD [address] [place] [address] [place] [phone] PCP - General Family Medicine 02/14/24 documented as of this encounter"
--- OUTSIDE RECORDS SUMMARY | 2024-08-13 14:50 | External Medical Summary | Summary of Care ---
Author Name Unknown Organization [facility] Address [address] [place] [address] Phone [phone] Care Team Providers Care Lobby Attendant Name Role Phone Roxanen Franklin MD Primary Care Provide r Reason for Visit * Reason Comments eRx-Medication Refill Encounter Details Date Type Department Care Team (Late st Contact Info) Description 04/18/2024 Refill Family Medicine [address] [phone] Roxanne Franklin MD [address] [place] [address] [place] [id number] Acquired hypothyroidism Allergies Active Allergy Reactions Criticality Noted Date Comments Bactrim Edema Other 04/16/2009 Joint pain Morphine And Codeine 09/10/2005 Propoxyphene Napsylate 10/06/2005 Tramadol Hcl 08/23/2008 documented as of this encounter (statuses as of 04/19/2024) Medications Medication Sig Dispensed Refills Start Date [...] as of this encounter (statuses as of 04/19/2024) Active Problems Problem Noted Date Diagnosed Date [...] as of this encounter (statuses as of 04/19/2024) Resolved Problems Problem Noted Date Diagnosed Date [...] as of this encounter (statuses as of 04/19/2024) Immunizations Name Administration Dates Next Due Pneumococcal [...] encounter Miscellaneous Notes * Telephone Encounter - Roxanne Franklin MD [...] 1 Capsule by mouth daily before breakfast. Authori delroy Provider: ROXANNE FRANKLIN Refused Prescriptions: Disp Refills Fenofibrate Micronized 134 MG Oral Capsule 90 Cap*3 Sig: Take 1 Capsule by mouth daily before breakfast. Refused By: DOUG RUBIO Reason for Refusal: Dose needs clarification * Telephone Encounter - Doug Rubio [facility] - 04/19/2024 12:43 PM EDTPending Prescriptions: Disp [...] clarification * Telephone Encounter - Doug Rubio [facility] - 04/19/2024 12:39 PM EDT I did [...] Clinical Pharmacist [facility] [phone] 04/19/2024 12:42 PM Pending Prescriptions: Disp Refills [...] date the medication was ordered: 04/26/23 Pharmacy: [facility], [address] [place] Is this request for a controlled substance? [...] 10:30 AM EDT Office Visit Gastroenterology [address] [place] [address] Carolina Camilo CRNP [address] [place] [address] 05/16/2024 1:30 PM EDT Imaging Radiology [address] [place] [address] 08/14/2024 2:20 PM EST Office Visit Family Medicine [address] [place] [phone] Avril Mcgowan PA-C [address] [place] [address] [place] [address] 02/12/2025 2:00 PM EDT Office Visit [address] [place] [phone] Avril Mcgowan PA-C [address] [place] [address] [place] [phone] Health Maintenance Due Date Last Done Comments [...] hypothyroidism documented in this encounter Care Teams Lobby Attendant Relationship Specialty Start Date End Date Roxanne Franklin MD [address] [place] [address] [place] [phone] PCP - General Family Medicine 02/14/24 documented as of this encounter
--- OUTSIDE RECORDS SUMMARY | 2024-08-13 14:50 | External Medical Summary ---
Author Name Unknown Address Unknown Organization K01:LABORATORY [facility] [place] - [address] [place] [address] Laboratory Report Ordering Provider Test Date Status SHAHRIAR OLIVEIRA 06/02/2024 14:50:04 Final Observation Date Value Abnormality Reference (Units ) Status Iron 06/02/2024 14:50:04 54 33-151 (ug /dL) Final Iron-binding capacity 06/02/2024 14:50:04 297 250-425 (ug/dL) Final Transferrin Sat % 06/02/2024 14:50:04 18 15 -55 (%) Final Performing Location [facility] [place] [facility] [address] [facility] [address]
--- OUTSIDE RECORDS SUMMARY | 2024-08-13 14:50 | External Medical Summary | Summary of Care ---
Author Name Unknown Organization [facility] Address [address] [facility] [address] Phone [phone] Care Team Providers Care Social Work Instructor Name Role Phone Hemal Franklin MD Primary Care Provide r Encounter Details Date Type Department Care Team (Late st Contact Info) Description 03/24/2024 Result Scan Unspecified Department Hemal Franklin MD [address] [place] [address] [place] [address] <No scans attached> Allergies Active Allergy Reactions Criticality Noted Date Comments Bactrim Edema Other 04/16/2009 Joint pain Morphine And Codeine 09/10/2005 Propoxyphene Napsylate 10/06/2005 Tramadol Hcl 08/23/2008 documented as of this encounter (statuses as of 03/31/2024) Medications Medication Sig Dispensed Refills Start Date [...] as of this encounter (statuses as of 03/31/2024) Active Problems Problem Noted Date Diagnosed Date [...] as of this encounter (statuses as of 03/31/2024) Resolved Problems Problem Noted Date Diagnosed Date [...] as of this encounter (statuses as of 03/31/2024) Immunizations Name Administration Dates Next Due Pneumococcal [...] 05/12/2024 10:30 AM EDT Office Visit Gastroenterology [address] [place] [address] Carolina Camilo CRNP [address] [place] [address] 05/16/2024 1:30 PM EDT Imaging Radiology [address] [place] [address] 08/14/2024 2:20 PM EST Office Visit [address] [place] [phone] Avril Mcgowan PA-C [address] [place] [address] [place] [address] 02/12/2025 2:00 PM EDT Office Visit [address] [place] [phone] Avril Mcgowan PA-C [address] [place] [address] [place] [address] Health Maintenance Due Date Last Done Comments Zoster Vaccines (1 of 2) 1999 Adult Wellness Visit 03/10/2018 03/10/2017 DXA Scan 02/15/2022 02/15/2015, 10/24, 07/04/2008 Diabetic Eye Exam 03/12/2024 03/12/2023, , 03/12/2023, Additional history exists COVID-19 Vaccine ( season) 2024 Influenza Vaccine (FLU shot) (#1) 2024 08/10/2022, 04/10/2016, 04/02/2015, Additional history exists HbA1c 08/13/2024 02/11/2024, 01/23, 08/10/2022, Additional history exists Depression Screening 09/17/2024 09/17/2023 Diabetic Foot Exam 09/17/2024 09/17/2023, 0 02/05/2022, 02/16/2020, Additional history exists TSH 12/22/2024 12/23/2023, 02/02/2024, 12/08/2022, Additional history exists Albumin/Creatinine Ratio 02/10/2025 [...] Procedure Name Priority Date/Time Associated Diagnosis Comments PATHOLOGY SCANNED RESULT 03/24/2024 documented in this encounter Results * PATHOLOGY SCANNED RESULT (03/24/2024) 03/24/2024 Hemal Franklin MD PATHOLOGY documented in this encounter Care Teams Social Work Instructor Relationship Specialty Start Date End Date Hemal Franklin MD [address] [place] [address] [place] [address] PCP - General Family Medicine 02/14/24 documented as of this encounter
--- OUTSIDE RECORDS SUMMARY | 2024-08-13 14:50 | External Medical Summary | Summary of Care ---
Author Name Unknown Organization [facility] Address [address] [place] [place] [address] Phone [phone] Care Team Providers Care Prom[employer] Ticket Sales Name Role Phone Hemal Franklin MD Primary Care Provide r Encounter Details Date Type Department Care Team (Late st Contact Info) Description 11/10/[address] [facility] Medicine [address] [phone] Avril Mcgowan PA-C [address] [place] [address] [place] [address] Allergies Active Allergy Reactions Criticality Noted Date Comments Bactrim Edema Other 04/16/2009 Joint pain Morphine And Codeine 09/10/2005 Propoxyphene Napsylate 10/06/2005 Tramadol Hcl 08/23/2008 documented as of this encounter (statuses as of 03/01/2024) Medications Medication Sig Dispensed Refills Start Date [...] as of this encounter (statuses as of 03/01/2024) Active Problems Problem Noted Date Diagnosed Date [...] as of this encounter (statuses as of 03/01/2024) Resolved Problems Problem Noted Date Diagnosed Date [...] as of this encounter (statuses as of 03/01/2024) Immunizations Name Administration Dates Next Due Pneumococcal [...] 05/12/2024 10:30 AM EDT Office Visit Gastroenterology [address] [place] [address] Carolina Camilo CRNP [address] [place] [address] 05/16/2024 1:30 PM EDT Imaging Radiology [address] [place] [address] 08/14/2024 2:20 PM EST Office Visit Family [address] [place] [phone] Avril Mcgowan [address] [place] [address] 02/12/2025 2:00 PM EDT Office Visit Family [address] [place] [phone] Avril Mcgowan PA-C [address] [place] [address] [place] [address] Health Maintenance Due Date Last Done Comments [...] 02/16/2020, Additional history exists TSH 12/22/2024 12/23/2023, 0202/2024, 12/08/2022, Additional history exists Albumin/Creatinine Ratio 02/10/2025 [...] interpreted or resulted by a [facility] or [facility] contracted radiologist. Avril Mcgowan PA-C RAD MRI-MRA documented in this encounter Care Teams [employer] Ticket Sales Relationship Specialty Start Date End Date Hemal Franklin MD [address] [place] [address] [place] [phone] PCP - General Family Medicine 02/14/24 documented as of this encounter
--- OUTSIDE RECORDS SUMMARY | 2024-08-13 14:50 | External Medical Summary | Summary of Care ---
Author Name Unknown Organization [facility] Address [address] [place] [address] Phone [phone] Care Team Providers Care Labor/Excavator Name Role Phone Hemal Franklin MD Primary Care Provide r Reason for Visit * Reason Comments Outpatient Testing Encounter Details Date Type Department Care Team (Late st Contact Info) Description 06/02/2024 3:00 PM EST Laboratory Laboratory [address] [place] [phone] [place] [address] Fatigue, unspecified type; Acquired hypothyroidism; Other iron deficiency anemia; Type 2 diabetes mellitus with hemoglobin A1c goal of less than 8.0% ([facility]) Allergies Active Allergy Reactions Criticality Noted Date Comments Bactrim Edema Other 04/16/2009 Joint pain Morphine And Codeine 09/10/2005 Propoxyphene Napsylate 10/06/2005 Tramadol Hcl 08/23/2008 documented as of this encounter (statuses as of 06/02/2024) Medications MULTIVITAMINS PO CAPS one daily 0 7 Active CALCIUM 600-200 MG-UNIT PO TABS one bid 0 7 Active FIBER-LAX 625 MG PO TABS one daily 0 7 Active CORTISPORIN 1 % EX OINTIndications:Op en wound of nose apply to each nare twice a day when needed 15 g 1 02/24/201 5 Active Probiotic Product (PROBIOTIC & ACIDOPHILUS EX ST) Capsule Take 1 Cap by mouth once. Active Magnesium 500 MG Oral Capsule Take 1 Capsule by mouth in the morning. 2 Active Azelastine HCl 0.05 % Ophthalmic Solution (Optivar)Indicatio ns:Allergic conjunctivitis of both eyes Instill into both eyes 1 Drop in the morning AND 1 Drop before bedtime. 6 mL 12 2 Active Hydrocortisone (Perianal) 2.5 % External Cream (Anusol-HC)Indicat ions:Hemorrhoids, external without complications Administer into the rectum 2 times a day. 28 g 3 2 Active Montelukast Sodium 10 MG Oral Tablet (Singulair)Indicat ions:Allergic rhinitis, unspecified seasonality, unspecified trigger Take 1 Tablet by mouth in the morning. 90 Tablet 1 3 Active Cetirizine HCl 10 MG Oral Tablet (ZyrTEC Allergy)Indication s:Allergy, subsequent encounter Take 1 Tablet by mouth [...] Active Losartan Potassium 50 MG Oral Tablet (Cozaar)Indication s:HTN, goal below 140/90 Take 1 Tablet by mouth in the morning. 90 Tablet 3 4 Active Famotidine 20 MG Oral Tablet (Pepcid)Indication s:Reflux esophagitis Take 1 Tablet by mouth in the morning. 90 Tablet 3 4 Active Diclofenac Sodium 1 % External Gel (Voltaren)Indicati ons:Chronic pain of right knee,DDD (degenerative disc disease), cervical Apply topically to affected area every 6 hours as needed (shoulder). 150 g 2 4 Active busPIRone HCl 10 MG Oral Tablet (Buspar)Indication s:Anxiety Take 1 Tablet by mouth in the morning and 1 Tablet before bedtime. 60 Tablet 5 4 Active Baclofen 20 MG Oral TabletIndications: Degeneration of lumbosacral intervertebral disc Take 1 Tablet by mouth in the morning and 1 Tablet before bedtime. As needed. 30 Tablet 4 Active Atenolol 50 MG Oral Tablet (Tenormin)Indicati ons:HTN, goal below 140/90 TAKE ONE TABLET BY MOUTH EVERY DAY 90 Tablet 3 4 Active Pantoprazole Sodium 40 MG Oral Tablet Delayed Release (Protonix)Indicati ons:Gastroesophage al reflux disease with esophagitis without hemorrhage Take 1 Tablet by mouth in the morning and 1 Tablet before bedtime. In the morning.. 90 Tablet 3 4 Active Ondansetron HCl 4 MG Oral TabletIndications: Nausea Take 1 Tablet by mouth every 6 hours as needed for Nausea or Vomiting. 30 Tablet 4 Active Dicyclomine HCl 20 MG Oral Tablet (Bentyl)Indication s:Irritable bowel syndrome with diarrhea TAKE ONE TABLET BY MOUTH FOUR TIMES DAILY NEEDED FOR ABDOMINAL PAIN 120 Tablet 11 4 Active Levothyroxine Sodium 100 MCG Oral Tablet (Levoxyl)Indicatio ns:Acquired hypothyroidism TAKE ONE TABLET BY MOUTH DAILY AT LEAST 30 MINS PRIOR TO BREAKFAST OR OTHER MEDS 90 Tablet 2 4 Active Fenofibrate Micronized 67 MG Oral Capsule Take 1 Capsule by mouth daily before breakfast. 90 Capsule 3 4 Active hydrOXYzine HCl 25 MG Oral TabletIndications: Dermatitis TAKE ONE TABLET BY MOUTH TWICE DAILY 40 Tablet 2 4 Active Amitriptyline HCl 50 MG Oral Tablet (Elavil)Indication s:Urinary frequency,Pelvic pain in female Take 1 Tablet by mouth at bedtime. 90 Tablet 1 4 Active Azithromycin 250 MG Oral Tablet (Zithromax Z-Yemi)Indications: Acute non-recurrent maxillary sinusitis Take two tablets by mouth on first day, then 1 tablet daily until gone 6 Tablet 4 Active documented as of this encounter (statuses [...] 2:20 PM EST Office Visit Family Medicine [address] [place] [phone] Avril Mcgowan PA-C [address] [place] [address] [place] [address] 02/12/2025 2:00 PM EDT Office Visit Family Medicine [address] [place] [phone] Avril Mcgowan PA-C [address] [place] [address] [place] [address] 05/29/2025 1:30 PM EST Imaging Radiology [address] [place] [address] Pending Results Name Type Priority Associated Diagnoses [...] goal of less than 8.0% ([facility]) 06/02/2024 2:50 PM EST CBC Lab Routine Fatigue, unspecified type 06/02/2024 2:50 PM EST DIFFERENTIAL, AUTOMATED Lab Routine Fatigue, unspecified type 06/02/2024 2:50 PM EST Health Maintenance Due Date Last Done Comments [...] this encounter Visit Diagnoses Diagnosis Fatigue, unspecified type Acquired hypothyroidism Unspecified hypothyroidism Other iron deficiency anemia Type 2 diabetes mellitus with hemoglobin A1c goal of less than 8.0% (HCC) Screening mammogram for breast cancer documented in this encounter Care Teams Labor/Excavator Relationship Specialty Start Date End Date Hemal Franklin MD [address] [place] [address] [place] [address] PCP - General Family Medicine 02/14/24 documented as of this encounter
--- OUTSIDE RECORDS SUMMARY | 2024-08-13 14:50 | External Medical Summary ---
Author Name Unknown Address Unknown Organization K01:LAB[facility]ATORY [facility] [place] [address] [place] [address] Laboratory Report Ordering Provider Test Date Status SHAHRIAR OLIVEIRA 06/02/2024 14:50:04 Final Observation Date Value Abnormality Reference (Units ) Status Ferritin 06/02/2024 14:50:04 200 Above high normal 13 -150 (ng/mL) Final Postmenopausal women have hi gher ferritin levels than pre-menopausal women. The above reference interval is based on pre-menopausal women. Performing Location LABORATORY [facility] [place] [address] [place] [address]
--- OUTSIDE RECORDS SUMMARY | 2024-08-13 14:50 | External Medical Summary | Summary of Care ---
Author Name Unknown Organization [facility] Address [address] [facility] [address] Phone [phone] Care Team Providers Care Vp Director Of Creative Strategy Name Role Phone Roxanne Franklin MD Primary Care Provide r Reason for Visit * Reason Comments eRx-Medication Refill Encounter Details Date Type Department Care Team (Late st Contact Info) Description 05/20/2024 Refill Family Medicine [address] [place] [phone] Avril Mcgowan PA-C [address] [place] [address] [place] [address] Dermatitis Allergies Active Allergy Reactions Criticality Noted Date Comments Bactrim Edema Other 04/16/2009 Joint pain Morphine And Codeine 09/10/2005 Propoxyphene Napsylate 10/06/2005 Tramadol Hcl 08/23/2008 documented as of this encounter (statuses as of 05/22/2024) Medications Medication Sig Dispensed Refills Start Date [...] 4 Active hydrOXYzine HCl 25 MG Oral TabletIndications:D ermatitis TAKE ONE TABLET BY MOUTH TWICE DAILY 40 Tablet 2 4 Active hydrOXYzine HCl 25 MG Oral TabletIndications:D ermatitis Take 1 Tablet by mouth 2 times a day as needed for Itching. 40 Tablet 2 3 05/22/20 24 Discontinued documented as of this encounter (statuses as of 05/22/2024) Active Problems Problem Noted Date Diagnosed Date [...] as of this encounter (statuses as of 05/22/2024) Resolved Problems Problem Noted Date Diagnosed Date [...] as of this encounter (statuses as of 05/22/2024) Immunizations Name Administration Dates Next Due Pneumococcal [...] Telephone Encounter - Roxanne Franklin MD - 05/22/2024 2:05 PM EDT Signed Prescriptions: Disp Refills hydrOXYzine HCl 25 MG Oral Tablet 40 Tab*2 Sig: TAKE ONE TABLET BY MOUTH TWICE DAILY Authorizing Provider: ROXANNE FRANKLIN * Telephone Encounter - [facility] - 05/22/2024 1:32 PM EDT Pending Prescriptions: Disp Refills hydrOXYzine HCl 25 MG Oral Tablet [Pharmac*40 Tab*2 Sig: TAKE ONE TABLET BY MOUTH TWICE DAILY * Telephone Encounter - [facility] - 05/22/2024 1:32 PM EDT Pending Prescriptions: Disp Refills hydrOXYzine HCl 25 MG Oral Tablet [Pharmac*40 Tab*2 Sig: TAKE ONE TABLET BY MOUTH TWICE DAILY 02/11/2024 (in office), Visit date not found (telemedicine) 08/14/2024 If no future appointments scheduled, and last appointment is greater than a year ago, please schedule patient for a follow-up appointment Last date the medication was ordered: 12/08/22 Pharmacy: [facility], [address] [place] Is this request for a controlled substance?No Urine Drug Screen:No results found. However, due [...] Care Team (Late st Contact Info) Description 05/23/2024 1:30 PM EDT Imaging Radiology [address] [place] [address] 08/14/2024 2:20 PM EST Office Visit [address] [place] [phone] Avril Mcgowan PA[address] [place] [address] 02/12/2025 2:00 PM EDT Office Visit [address] [place] [phone] Avril Mcgowan PAJez [address] [place] [address] [place] [address] Health Maintenance Due Date Last Done Comments [...] as of this encounter Visit Diagnoses Diagnosis Dermatitis Contact dermatitis and other eczema, due to unspecified cause documented in this encounter Care Teams Vp Director Of Creative Strategy Relationship Specialty Start Date End Date Roxanne Farnklin MD [address] [place] [address] [place] [address] PCP - General Family Medicine 02/14/24 documented as of this encounter
--- OUTSIDE RECORDS SUMMARY | 2024-08-13 14:50 | External Medical Summary ---
Author Name Unknown Address Unknown Organization K01:LAB[facility]ATORY [facility] [place] - [address] [place] [address] Laboratory Report Ordering Provider Test Date Status MURRAY OLIVEIRAERY 06/02/2024 14:50:04 Final Observation Date Value Abnormality Reference (Units ) Status SYNC LEUKOCYTES IN BLOOD BY AUTOMATED COUNT 06/02/2024 14:50:04 7.42 4.00-10.80 (K/uL) Final Segs 06/02/2024 14:50:04 41.8 40.0-75.0 (%) Final Lymphs % 06/02/2024 14:50:04 44.5 Above high normal 18.0-42.0 (%) Final Monos 06/02/2024 14:50:04 9.7 1.0-11.0 (%) Final Eosinophils 06/02/2024 14:50:04 2.7 0.0-6.0 (%) Final Basos 06/02/2024 14:50:04 0.9 0.0-2.0 (%) Final Immature Granulocyte, Percent 06/02/2024 14:50:04 0.4 0.0-2.0 (%) Final Absolute Segs 06/02/2024 14:50:04 3.10 1.80-7.70 (K/uL) Final Lymphs, absolute 06/02/2024 14:50:04 3.30 1.00-4.80 (K/ul) Final Monos, Abs 06/02/2024 14:50:04 0.72 0.00-1.10 (K/uL) Final Eos, Abs 06/02/2024 14:50:04 0.20 0.00-0.70 (K/uL) Final Basos, Abs 06/02/2024 14:50:04 0.07 0.00-0.20 (K/uL) Final Immature Granulocytes, Number 06/02/2024 14:50:04 0.03 0.00-0.20 (K/uL) Final Performing Location LAB[facility]ORY [facility] [place] - [address] [facility] [address]
--- OUTSIDE RECORDS SUMMARY | 2024-08-13 14:50 | External Medical Summary | Summary of Care ---
Author Name Unknown Organization [facility] Address [address] [place] [address] Phone [phone] Care Team Providers Care Physical Therapist Assistant Name Role Phone Hemal Franklin MD Primary Care Provide r Encounter Details Date Type Department Care Team (Late st Contact Info) Description 05/19/2024 Orders Only Family Medicine [address] [phone] Hemal Franklin MD [address] [place] [address] [place] [address] Allergies Active Allergy Reactions Criticality Noted Date Comments Bactrim Edema Other 04/16/2009 Joint pain Morphine And Codeine 09/10/2005 Propoxyphene Napsylate 10/06/2005 Tramadol Hcl 08/23/2008 documented as of this encounter (statuses as of 05/19/2024) Medications Medication Sig Dispensed Refills Start Date [...] for Itching. 40 Tablet 2 12/08/2022 Active Cetirizine HCl 10 MG Oral Tablet [...] before breakfast. 90 Capsule 3 04/19/2024 Active documented as of this encounter (statuses as of 05/19/2024) Active Problems Problem Noted Date Diagnosed Date [...] as of this encounter (statuses as of 05/19/2024) Resolved Problems Problem Noted Date Diagnosed Date [...] as of this encounter (statuses as of 05/19/2024) Immunizations Name Administration Dates Next Due Pneumococcal [...] Description 05/23/2024 1:30 PM EDT Imaging Radiology [address] [place] [address] 08/14/2024 2:20 PM EST Office Visit Family Medicine [address] [place] [phone] Avril Mcgowan PA-C [address] [place] [address] [place] [address] 02/12/2025 2:00 PM EDT Office Visit [facility] Medicine [address] [place] [phone] Avril Mcgowan PA-C [address] [place] [address] [place] [address] Health Maintenance Due Date Last Done Comments [...] 10/15/2023, Additional history exists Diabetic Eye Exam 05/19/2025 05/16/2024, , 03/12/2023, Additional history exists DTap/Tdap [...] Procedure Name Priority Date/Time Associated Diagnosis Comments DIABETIC EYE EXAM Routine 05/16/2024 documented in this encounter Results * DIABETIC EYE EXAM (05/16/2024) 05/16/2024 Estela Garcia OD OTHER OUTSIDE LAB (SEE SCANNED REPORT) documented in this encounter Care Teams Physical Therapist Assistant Relationship Specialty Start Date End Date Hemal Franklin MD [address] [place] [address] [place] [phone] PCP - General Family Medicine 02/14/24 documented as of this encounter
--- OUTSIDE RECORDS SUMMARY | 2024-08-13 14:50 | External Medical Summary ---
Author Name Unknown Address Unknown Organization K01:LABORATORY [facility] [place] - [address] [facility] [place] [address] Laboratory Report Ordering Provider Test Date Status SHAHRIAR OLIVEIRA 06/02/2024 14:50:04 Final Observation Date Value Abnormality Reference (Units ) Status BUN 06/02/2024 14:50:04 20 6-20 (mg/dL) Final Creatinine 06/02/2024 14:50:04 0.9 0.5-1.0 (mg/dL) Final Glomerular filtration rate/1.73 sq M.predicted [Volume Rate/Area] in Serum, Plasma or Blood by Creatinine-based formula (CKD-EPI) 06/02/2024 14:50:04 64 >=60 (mL/min) Final eGFR is calculated based on the CKD-EPI 2020 equation. Sodium 06/02/2024 14:50:04 137 135-146 (m mol/L) Final Potassium 06/02/2024 14:50:04 4.8 3.5-5.1 (m mol/L) Final Cl 06/02/2024 14:50:04 102 98-107 (mm ol/L) Final CO2 06/02/2024 14:50:04 24 22-32 (mmo l/L) Final Anion gap 06/02/2024 14:50:04 11 7-15 (mmol /L) Final Glucose 06/02/2024 14:50:04 122 Above high normal 70 -120 (mg/dL) Final Albumin 06/02/2024 14:50:04 4.2 3.8-5.0 (g /dL) Final AST (Aspartate aminotransferase) 06/02/2024 14:50:04 31 10-35 (U/L) Fin al Alk Phos 06/02/2024 14:50:04 61 35-130 (U/ L) Final Bilirubin, Total 06/02/2024 14:50:04 <0.2 <=1 .2 (mg/dL) Final Calcium 06/02/2024 14:50:04 9.9 8.4-10.2 ( mg/dL) Final Protein 06/02/2024 14:50:04 6.7 6.0-8.3 (g /dL) Final ALT (Alanine aminotransferase) 06/02/2024 14:50:04 25 10-35 (U/L) Tra garner Performing Location LABORATORY [facility] [place] - [facility] [address] [facility] [address]
--- OUTSIDE RECORDS SUMMARY | 2024-08-13 14:50 | External Medical Summary ---
Author Name Unknown Address Unknown Organization K01:LABORATORY [facility] [place] - [address] [facility] [place] [address] Laboratory Report Ordering Provider Test Date Status SHAHRIAR OLIVEIRA 06/02/2024 14:50:04 Final Observation Date Value Abnormality Reference (Units ) Status TSH 06/02/2024 14:50:04 2.36 0.27-4.20 (uIU/mL) Final Performing Location LAB[facility]ATORY [facility] [address] [facility] [address]
--- OUTSIDE RECORDS SUMMARY | 2024-08-13 14:51 | External Medical Summary | Summary of Care ---
Author Name Unknown Organization [facility] Address [address] [facility] [address] Phone [phone] Care Team Providers Care Fittings Finisher Name Role Phone Hemal Bess MD Primary Care Provide r Reason for Visit * Reason Onset Date Comments eRx-Medication Refill Medication Pre-auth 02/22/2024 Encounter Details Date Type Department Care Team (Late st Contact Info) Description 02/22/[address] [address] Hemal Bess MD [address] [place], [place] [address] [phone] eRx-Medication Refill; Medication Pre-auth Allergies Active Allergy Reactions Criticality Noted Date Comments Bactrim Edema Other 04/16/2009 Joint pain Morphine And Codeine 09/10/2005 Propoxyphene Napsylate 10/06/2005 Tramadol Hcl 08/23/2008 documented as of this encounter (statuses as of 02/28/2024) Medications Medication Sig Dispensed Refills Start Date [...] 3 Active hydrOXYzine HCl 25 MG Oral TabletIndications: Dermatitis Take 1 Tablet by mouth 2 times a day as needed for Itching. 40 Tablet 2 3 Active Fenofibrate Micronized 134 MG Oral Capsule TAKE ONE CAPSULE BY MOUTH EVERY MORNING BEFORE BREAKFAST 90 Capsule 3 3 Active Levothyroxine Sodium 100 MCG Oral Tablet (Levoxyl)Indicatio ns:Acquired hypothyroidism TAKE ONE TABLET BY MOUTH DAILY AT LEAST 30 MINS PRIOR TO BREAKFAST OR OTHER MEDS 90 Tablet 3 3 Active Cetirizine HCl 10 MG Oral [...] Active Amitriptyline HCl 25 MG Oral Tablet (Elavil)Indication s:Urinary frequency,Pelvic pain in female TAKE ONE TABLET [...] ABDOMINAL PAIN 120 Tablet 11 4 Active Dicyclomine HCl 20 MG Oral Tablet (Bentyl)Indication s:Irritable bowel syndrome with diarrhea One pill by mouth 4 times a day as needed for abdominal pain 120 Tab 11 1 02/23/20 24 Discontinued Cephalexin 500 MG Oral Capsule (Keflex)Indication s:Acute cystitis without hematuria Take 1 Capsule by mouth in the morning and 1 Capsule before bedtime. Do all this for 7 days. 14 Capsule 4 02/23/20 24 Discontinued(Pa tient preference/disc ontinuation) Nitrofurantoin Monohyd Macro 100 MG Oral Capsule (Macrobid) Take 1 Capsule by mouth in the morning and 1 Capsule before bedtime. Do all this for 7 days. With food until gone. 14 Capsule 4 02/23/20 24 Discontinued(Dick nava preference/disc ontinuation) documented as of this encounter (statuses as of 02/28/2024) Active Problems Problem Noted Date Diagnosed Date [...] as of this encounter (statuses as of 02/28/2024) Resolved Problems Problem Noted Date Diagnosed Date [...] as of this encounter (statuses as of 02/28/2024) Immunizations Name Administration Dates Next Due Influenza, Whole Virus 07/28/2000 Pneumococcal Conjugate Vacc, 13 Valent (Prevnar) 12/28/2014 Pneumococcal Polysaccharide PPV23 (Pneumovax) 05/14/2016,04/23/2008 Seasonal Influenza, Quadriva lent Hd (Fluzone Hd) 08/10/2022 Seasonal Influenza, Split, I IV3, With Preserve, Inj 04/02/2015,03/29/2014,04/11/2013,03/26,04/21/2011,05/01/2010,04/16/20 09,06/05/2008,05/17/2002,07/07/2001 05/17/2003 Seasonal Influenza, Trivalen t, High Dose, No [...] encounter Miscellaneous Notes * Telephone Encounter - Lia Tolliver, [facility] - 02/28/2024 1:24 PM EDT Please submit PA. Include the following documentation: 04/25/2021 OV Please copy and paste the following information into PA form: Uses when she has IBS flare ups Also has GERD What other drugs is there medical record documentation of therapeutic failure on, intolerance to, or contraindication to for this condition? Solomon as urgent: No Diagnosis/ICD-10 Code(s): K58.0 If instantaneous decision is not received after submitting prior auth, please continue to follow upon this and route back to the [facility] pool if no decision is made by the insurance by 03/02/24, after clarifying with the pharmacy that the claim is still not processing. If PA is denied, please also route back to [facility]. Thanks, Lia Tolliver, [facility] Clinical Pharmacist [facility] ([facility]) [phone] * Telephone Encounter - Jinny Quinonez upholstery sewer - 02/28/2024 12:22 PM EDT This is a new PA request. Upon review of this prior authorization request, I verified this request is appropriate. This is prescribed by a department for which [facility] is authorized to review prior authorizations This is not a duplicate encounter regarding the same prior authorization The patient is planning to use insurance The insurance information listed in previous note is correct and the plan that is requiring prior authorization The insurance does not cover either brand or generic forms of this script as written without prior authorization The insurance does not cover any NDCs of this script without prior authorization RX Estimate tool confirms this script needs prior authorization Of note, there is nothing currently pending in [facility] for this request. Please advise how to proceed. Thanks, Jinny Quinonez Goat Farmer III [facility] ([facility]) 02/28/2024,12:22 PM * Telephone Encounter - Veornica Ruiz PHARM Tech - 02/28/2024 10:42 AM EDT Patient calling to inform doctor that the patient's insurance will not pay for this medication without a completed prior authorization. Did confirm this information with the pharmacy. Pt's current insurance information is as follows: Patient name: Kyra Mendoza ID number: [id number] BIN number: [id number] PCN number: [id number] Group number: Subscriber name: Kyra Mendoza Primary or Secondary Insurance:Primary Medication: Dicyclomine HCl 20 MG Oral Tablet (Bentyl) Reason for Request: rupali allen Pharmacy and phone number: [facility], [address] [place] Rx plan and phone number: [phone] Is this a new medication for the patient? No. How did the patient obtain the medication on the lastfill? It was covered last time on this same insurance. What alternative medications does the pharmacy have in stock?: n/a Veronica Faulkner Toll Service Observer [facility] ([facility]) 02/28/2024,10:43 AM * Telephone Encounter - Hemal Bess MD - 02/23/2024 11:41 AM EDT Signed Prescriptions: Disp Refills Dicyclomine HCl 20 MG Oral Tablet (Bentyl) 120 Ta*11 Sig: TAKE ONE TABLET BY MOUTH FOUR TIMES DAILY NEEDED FOR ABDOMINAL PAIN Authorizing Provider: HEMAL BESS * Telephone Encounter - Caitlin Izaguirre RN - 02/23/2024 11:26 AM EDTPending Prescriptions: Disp Refills Dicyclomine HCl 20 MG Oral Tablet [Pharmac*120 Ta*11 Sig: TAKE ONE TABLET BY MOUTH FOUR TIMES DAILY NEEDED FOR ABDOMINAL PAIN * Telephone Encounter - Caitlin Izaguirre RN - 02/23/2024 11:25 AM EDT Pending Prescriptions: Disp Refills Dicyclomine HCl 20 MG Oral Tablet (Bentyl*120 Ta*11 Sig: TAKE ONE TABLET BY MOUTH FOUR TIMES DAILY NEEDED FOR ABDOMINAL PAIN Last Visit: 02/11/2024 (in office), Visit date not found (telemedicine) Next Visit: 08/14/2024 Last date the medication was ordered: 2020 Patient Active Problem List Diagnosis Acquired hypothyroidism Reflux esophagitis GENERALIZED ANXIETY DIS Irritable bowel syndrome LUMB-LUMBOSAC DISC DEGEN Mixed urge and stress incontinence ADVANCE DIRECTIVE INFORMATION HTN, GOAL BELOW 140/90 DYSLIPIDEMIA, GOAL LDL BELOW 100 Chronic interstitial cystitis LBBB (left bundle branch block) Allergic rhinitis Type 2 diabetes mellitus with hemoglobin A1c goal of less than 8.0% (HCC) Chondrocalcinosis Rectocele Cystocele, lateral Prolapse of vaginal vault after hysterectomy Primary osteoarthritis of left knee Hepatic steatosis Labs: Lab Results Component Value Date/Time CREATININE - [facility] 0.9 02/11/2024 02:17 PM CREATININE - [facility] 0.9 08/18/2019 10:05 AM CREATININE, RANDOM URINE - [facility] 50 02/11/2024 02:17 PM CREATININE, RANDOM URINE - [facility] 50 04/20/2017 11:57 AM CREATININE-OUTSIDE LAB 1.18 (A) 10/15/2023 12:00 AM Lab Results Component Value Date/Time POTASSIUM - [facility] 4.5 02/11/2024 02:17 PM POTASSIUM - [facility] 4.3 08/18/2019 10:05 AM POTASSIUM-OUTSIDE LAB 4.8 10/15/2023 12:00 AM Lab Results Component Value Date/Time TSH - [facility] 1.96 12/23/2023 04:28 PM TSH - [facility] 1.31 08/18/2019 10:05 AM TSH - OUTSIDE LAB 1.780 09/02/2023 12:00 AM Lab Results Component Value Date/Time LDL CHOLESTEROL (CALCULATED) - [facility] 90 02/11/2024 02:17 PM LDL CHOLESTEROL (CALCULATED) - [facility] 93 08/18/2019 10:05 AM LDL CHOLESTEROL (CALCULATED) - [facility] 74 07/07/2018 11:18 AM LDL CHOLESTEROL (DIRECT MEASURE) - [facility] 91 02/04/2023 10:24 AM LDL CHOLESTEROL (DIRECT MEASURE) - [facility] 91 11/26/2021 10:02 AM LDL CHOLESTEROL (DIRECT MEASURE) - [facility] NOT APPLICABLE 08/18/2019 10:05 AM LDL CHOLESTEROL (DIRECT MEASURE) - [facility] NOT APPLICABLE 07/07/2018 11:18 AM Lab Results Component Value Date/Time ALT - [facility] 16 02/11/2024 02:17 PM ALT - [facility] 15 08/18/2019 10:05 AM Hemoglobin AIC Results: Lab Results Component Value Date/Time HEMOGLOBIN A1C - [facility] 7.1 (H) 02/11/2024 02:17 PM HEMOGLOBIN A1C - [facility] 7.3 (H) 02/04/2023 10:24 AM HEMOGLOBIN A1C - [facility] 6.7 (H) 08/10/2022 11:10 AM HEMOGLOBIN A1C - [facility] 6.0 (H) 02/16/2020 02:33 PM HEMOGLOBIN A1C - [facility] 5.9 (H) 08/18/2019 10:05 AM HEMOGLOBIN A1C - [facility] 5.8 (H) 01/10/2019 04:03 PM * Telephone Encounter - Mirta George - 02/22/2024 7:13 PM EDTPending Prescriptions: Disp Refills Dicyclomine HCl 20 MG Oral Tablet [Pharmac*120 Ta*11 Sig: TAKE ONE TABLET BY MOUTH FOUR TIMES DAILY NEEDED FOR ABDOMINAL PAIN documented in this encounter Plan of Treatment Upcoming Encounters Date Type Department Care Team (Late st Contact Info) Description 05/12/2024 10:30 AM EDT Office Visit Gastroenterology [address] [place] [address] Carolina Camilo CRNP [address] [place] [address] 05/16/2024 1:30 PM EDT Imaging Radiology [address] [place] [address] 08/14/2024 2:20 PM EST Office Visit Family Medicine [address] [place] [phone] Avril Mcgowna PA[address] [place] [address] 02/12/2025 2:00 PM EDT Office Visit Family Medicine [address] [place] [phone] Avril Mcgowan [address] [place] [address] Health Maintenance Due Date Last Done Comments Zoster Vaccines (1 of 2) 1999 DXA Scan 02/15/2022 02/15/2015, 10/24, 07/04/2008 COVID-19 [...] as of this encounter Visit Diagnoses Diagnosis Irritable bowel syndrome with diarrhea Irritable bowel syndrome documented in this encounter Care Teams Fittings Finisher Relationship Specialty Start Date End Date Hemal Bess MD [address] [place] [address] [place] [address] PCP - General Family Medicine 02/14/24 documented as of this encounter
--- OUTSIDE RECORDS SUMMARY | 2024-08-13 14:51 | External Medical Summary | Summary of Care ---
Author Name Unknown Organization [facility] Address [address] [facility] [place] [address] Phone [phone] Care Team Providers Care Automation And Controls Manager Name Role Phone Roxanne Bess MD Primary Care Provide r Reason for Visit * Reason Onset Date Comments eRx-Medication Refill Medication Pre-auth 02/22/2024 Encounter Details Date Type Department Care Team (Late st Contact Info) Description 02/22/[address] [phone] Roxanne Bess MD [address] [place], [place] [address] [phone] eRx-Medication Refill; Medication Pre-auth Allergies Active Allergy [...] encounter Miscellaneous Notes * Telephone Encounter - Jinny Quinonez, sisal operator - 02/28/2024 12:22 PM EDT This is a new PA request. Upon review of this prior authorization request, I verified this request is appropriate. This is prescribed by a department for which [facility] is authorized to review prior authorizations This [...] note, there is nothing currently pending in Center for this request. Please advise how to proceed. Jinny Faulkner Jacquard Card Cutter III [facility] ([facility]) 02/28/2024,12:22 PM * Telephone Encounter - Veronica Ruiz PHARM Tech - 02/28/2024 10:42 AM EDT Patient calling to inform doctor that the patient's insurance will not pay for this medication without a completed prior authorization. Did confirm this information with the pharmacy. Pt's current insurance information is as follows: Patient name: Kyra Mendoza ID number: [id number] BIN number: [id number] PCN number: [id number] Group number: Subscriber name: Kyra Mendoza Primary or Secondary Insurance:Primary Medication: Dicyclomine HCl 20 MG Oral Tablet (Bentyl) Reason for Request: needs pa Pharmacy and phone number: E [facility], [address] [place] Rx plan and phone number: [phone] Is this a new medication for the patient? No. How did the patient obtain the medication on the lastfill? It was covered last time on this same insurance. What alternative medications does the pharmacy have in stock?: n/a Veronica Faulkner Frame Wirer [facility] ([facility]) 02/28/2024,10:43 AM * Telephone Encounter - Roxanne Bess MD - 02/23/2024 11:41 AM EDT Signed Prescriptions: Disp Refills Dicyclomine HCl 20 MG Oral Tablet (Bentyl) 120 Ta*11 Sig: TAKE ONE TABLET BY MOUTH FOUR TIMES DAILY NEEDED FOR ABDOMINAL PAIN Authorizing Provider: ROXANNE BESS * Telephone Encounter - Caitlin Izaguirre [...] 05/12/2024 10:30 AM EDT Office Visit Gastroenterology [address] [place] [address] Carolina Camilo CRNP [address] [place] [address] 05/16/2024 1:30 PM EDT Imaging Radiology [address] [place] [address] 08/14/2024 2:20 PM EST Office Visit Family Medicine [address] [place] [phone] Avril Mcgowan PA-C [address] [place] [address] [place] [address] 02/12/2025 2:00 PM EDT Office Visit Family Medicine [address] [place] [phone] Avril Mcgowan PA-C [address] [place] [address] [place] [address] Health Maintenance Due Date Last Done Comments Zoster Vaccines (1 of 2) 1999 DXA Scan 02/15/2022 02/15/2015, 10/24, 07/04/2008 COVID-19 Vaccine (2022- season) 2023 Diabetic Eye Exam 03/12/2024 03/12/2023, [...] syndrome documented in this encounter Care Teams Automation And Controls Manager Relationship Specialty Start Date End Date Roxanne Bess MD [address] [place] [address] [place] [address] PCP - General Family Medicine 02/14/24 documented as of this encounter
--- OUTSIDE RECORDS SUMMARY | 2024-08-13 14:51 | External Medical Summary | Summary of Care ---
Author Name Unknown Organization [facility] Address [address] [facility] [place] [address] Phone [phone] Care Team Providers Care Machinist Mate Name Role Phone Hemal Bess MD Primary Care Provide r Reason for Visit * Reason Onset Date Comments eRx-Medication Refill Medication Pre-auth 02/22/2024 Encounter Details Date Type Department Care Team (Late st Contact Info) Description 02/22/[address] [phone] Hemal Bess MD [address] [place], [place] [address] [phone] eRx-Medication Refill; Medication Pre-auth Allergies Active Allergy Reactions Criticality Noted Date Comments Bactrim Edema Other 04/16/2009 Joint pain Morphine And Codeine 09/10/2005 Propoxyphene Napsylate 10/06/2005 Tramadol Hcl 08/23/2008 documented as of this encounter (statuses as of 02/29/2024) Medications Medication Sig Dispensed Refills Start Date [...] as of this encounter (statuses as of 02/29/2024) Active Problems Problem Noted Date Diagnosed Date [...] as of this encounter (statuses as of 02/29/2024) Resolved Problems Problem Noted Date Diagnosed Date [...] as of this encounter (statuses as of 02/29/2024) Immunizations Name Administration Dates Next Due Influenza, [...] encounter Miscellaneous Notes * Telephone Encounter - Michelle Vigil CPhT - 02/29/2024 9:22 AM EDT Checked status of prior authorization for Dicyclomine HCl 20 MG Oral Tablet (Bentyl) through CMM. Left message on voicemail for patient to call back. Please make patient aware Dicyclomine HCl 20 MG Oral Tablet (Bentyl) was approved until: 02/27/2025. Pharmacy also made aware of approval. Thank you, Michelle Vigil Laser Beam Trim Operator [facility] 02/29/2024,9:22 AM * Telephone Encounter - Jinny Quinonez correctional cook - 02/28/2024 2:29 PM EDT Submitted information in previous note via CMM (Mondragon: [id number]).. Awaiting payer response. We will follow-up with insurance starting 02/28. Per [facility] request, if no decision is received from insurance by 03/02, we will route back to the [facility] after clarifying with the pharmacy that the claim is still not processing. Thanks, Jinny Quinonez Rn Enterostomal III [facility] ([facility]) 02/28/2024,2:29 PM * Telephone Encounter - Lia Tolliver [facility] - 02/28/2024 1:24 PM EDT Please [...] upon this and route back to the [facility] pool if no decision is made by the insurance by 03/02/24, after clarifying with the pharmacy that the claim is still not processing. If PA is denied, please also route back to [facility] pool. Thanks, Lia Tolliver, [facility] Clinical Pharmacist [facility] ([facility]) [phone] * Telephone Encounter - Jinny Quinonez PHARM Tech - 02/28/2024 12:22 PM EDT This is a new PA request. Upon review of this prior authorization request, I verified this request is appropriate. This is prescribed by a department for which [facility] is authorized to review prior authorizations This [...] note, there is nothing currently pending in [facility] for this request. Please advise how to proceed. Thanks, Jinny Quinonez Rn Enterostomal III [facility] ([facility]) 02/28/2024,12:22 PM * Telephone Encounter - Veronica Ruiz PHARM Tech - 02/28/2024 10:42 AM EDT Patient calling to inform doctor that the patient's insurance will not pay for this medication without a completed prior authorization. Did confirm this information with the pharmacy. Pt's current insurance information is as follows: Patient name: Kyra Mendoza ID number: [id number] BIN number: [id number] PCN number: [id number] Group number: Subscriber name: Kyra Mendoza Primary or Secondary Insurance:Primary Medication: Dicyclomine HCl 20 MG Oral Tablet (Bentyl) Reason for Request: needs pa Pharmacy and phone number: E [facility], [address] [place] Rx plan and phone number: [phone] Is this a new medication for the patient? No. How did the patient obtain the medication on the lastfill? It was covered last time on this same insurance. What alternative medications does the pharmacy have in stock?: n/a Thanks, Veronica Ruiz Laser Beam Trim Operator [facility]) 02/28/2024,10:43 AM [...] 10:30 AM EDT Office Visit Gastroenterology [address] [place] [address] Carolina Camilo CRNP [address] [facility] [place] [address] 05/16/2024 1:30 PM EDT Imaging Radiology [address] [place] [address] 08/14/2024 2:20 PM EST Office Visit [address] [place] [phone] Avril Mcgowan PA-C [address] [place] [address] [place] [address] 02/12/2025 2:00 PM EDT Office Visit [address] [place] [phone] Avril Mcgowan PA-C [address] [place] [address] [place] [address] Health Maintenance Due Date Last Done Comments [...] syndrome documented in this encounter Care Teams Machinist Mate Relationship Specialty Start Date End Date Hemal Bess MD [address] [place] [address] [place] [address] PCP - General Family Medicine 02/14/24 documented as of this encounter
--- OUTSIDE RECORDS SUMMARY | 2024-08-13 14:51 | External Medical Summary | Summary of Care ---
Author Name Unknown Organization [facility] Address [address] [place] [address] Phone [phone] Care Team Providers Care Gumming Machine Operator Name Role Phone Hemal Bess MD Primary Care Provide r Reason for Visit * Reason Onset Date Comments eRx-Medication Refill Medication Pre-auth 02/22/2024 Encounter Details Date Type Department Care Team (Late st Contact Info) Description 02/22/[address] [phone] Hemal Bess MD [address] [place], [place] [address] [phone] eRx-Medication Refill; Medication Pre-auth Allergies Active Allergy [...] Notes * Telephone Encounter - Jinny Quinonez, baccarat dealer - 02/28/2024 2:29 PM EDT Submitted information in previous note via CM (Mondragon: [id number]).. Awaiting payer response. We will follow-up with insurance starting 02/28. Per [facility] request, if no decision is received from insurance by 03/02, we will route back to the [facility] after clarifying with the pharmacy that the claim is still not processing. Thanks, Jinny Quinonez Technician Automatic III [facility]) 02/28/2024,2:29 PM * Telephone Encounter - Lia Tolliver [facility] - 02/28/2024 1:24 PM EDT Please submit [...] upon this and route back to the [facility] pool if no decision is made by the insurance by 03/02/24, after clarifying with the pharmacy that the claim is still not processing. If PA is denied, please also route back to [facility] pool. Thanks, Lia Tolliver [facility] Clinical Pharmacist [facility] ([facility]) [phone] * Telephone Encounter - Jinny Quinonez baccarat dealer - 02/28/2024 12:22 PM EDT This is a new PA request. Upon review of this prior authorization request, I verified this request is appropriate. This is prescribed by a department for which [facility] is authorized to review prior [...] note, there is nothing currently pending in [facility] for this request. Please advise how to proceed. ThanksJinny Technician Automatic III [facility]) 02/28/2024,12:22 PM * Telephone Encounter - Veronica Ruiz PHARM Tech - 02/28/2024 10:42 AM EDT Patient calling to inform doctor that the patient's insurance will not pay for this medication without a completed prior authorization. Did confirm this information with the pharmacy. Pt's current insurance information is as follows: Patient name: Kyra Mendoza ID number: [id number] BIN number: [id number] PCN number: [id number] Group number: Subscriber name: Kyra Mendoza Primary or Secondary Insurance:Primary Medication: Dicyclomine HCl 20 MG Oral Tablet (Bentyl) Reason for Request: rupali allen Pharmacy and phone number: E [facility], [address] [place] Rx plan and phone number: [phone] Is this a new medication for the patient? No. How did the patient obtain the medication on the lastfill? It was covered last time on this same insurance. What alternative medications does the pharmacy have in stock?: n/a Kaushik, Veronica Ruiz Mold Maker Plastic Molds [facility]) 02/28/2024,10:43 AM [...] hemoglobin A1c goal of less than 8.0% ([facility]) Chondrocalcinosis Rectocele Cystocele, lateral Prolapse of vaginal [...] 05/12/2024 10:30 AM EDT Office Visit Gastroenterology [address] [place] [address] Carolina Camilo CRNP [address] [place] [address] 05/16/2024 1:30 PM EDT Imaging Radiology [address] [place] [address] 08/14/2024 2:20 PM EST Office Visit Family [address] [place] [phone] Avril Mcgowan PA-C [address] [place] [address] [place] [address] 02/12/2025 2:00 PM EDT Office Visit [address] [place] [phone] Avril Mcgowan PA-C [address] [place] [address] [place] [address] Health Maintenance Due Date Last Done Comments [...] syndrome documented in this encounter Care Teams Gumming Machine Operator Relationship Specialty Start Date End Date Hemal Bess MD [address] [place] [address] [place] [address] PCP - General Family Medicine 02/14/24 documented as of this encounter
--- OUTSIDE RECORDS SUMMARY | 2024-08-13 14:51 | External Medical Summary | Summary of Care ---
Author Name Unknown Organization [facility] Address [address] [facility] [place] [address] Phone [phone] Care Team Providers Care Microbiology Instructor Name Role Phone Roxanne Bess MD Primary Care Provide r Reason for Visit * Reason Comments eRx-Medication Refill Encounter Details Date Type Department Care Team (Late st Contact Info) Description 02/22/2024 Refill Family Medicine [address] [place] [address] Roxanne Bess MD [address] [place] [address] [place] [address] Irritable bowel syndrome with diarrhea Allergies Active Allergy Reactions Criticality Noted Date [...] 7 days. 14 Capsule 4 02/23/20 24 Discontinued(Dick nava preference/disc ontinuation) Nitrofurantoin Monohyd Macro 100 MG [...] encounter Miscellaneous Notes * Telephone Encounter - Veronica Ruiz PHARM Tech - 02/28/2024 10:42 AM EDT Patient calling to inform doctor that the patient's insurance will not pay for this medication without a completed prior authorization. Did confirm this information with the pharmacy. Pt's current insurance information is as follows: Patient name: Kyra Mendoza ID number: [id number] BIN number: [id number] N number: [id number] Group number: Subscriber name: Kyra Mendoza Primary or Secondary Insurance:Primary Medication: Dicyclomine HCl 20 MG Oral Tablet (Bentyl) Reason for Request: rupali allen Pharmacy and phone number: [facility], [address] [place] Rx plan and phone number: [phone] Is this a new medication for the patient? No. How did the patient obtain the medication on the lastfill? It was covered last time on this same insurance. What alternative medications does the pharmacy have in stock?: n/a Kaushik, Veronica Ruiz Kitchen Worker [facility] ([facility]) 02/28/2024,10:43 AM [...] 05/12/2024 10:30 AM EDT Office Visit Gastroenterology [address] [place] [address] Carolina Camilo CRNP [address] [place] [address] 05/16/2024 1:30 PM EDT Imaging Radiology [address] [place] [address] 08/14/2024 2:20 PM EST Office Visit Family [address] [place] Avril Mcgowan PA-[address] [place] [address] 02/12/2025 2:00 PM EDT Office Visit Family Medicine [address] [place] Avril Mcgowan PA-C [address] [place] [address] [place] [address] Health Maintenance Due Date Last Done Comments [...] syndrome documented in this encounter Care Teams Microbiology Instructor Relationship Specialty Start Date End Date Roxanne Bess MD [address] [place] [address] [place] [address] PCP - General Family Medicine 02/14/24 documented as of this encounter
--- OUTSIDE RECORDS SUMMARY | 2024-08-13 14:51 | External Medical Summary | Summary of Care ---
Author Name Unknown Organization [facility] Address [address] [facility] [address] Phone [phone] Care Team Providers Care Grocery Checker Name Role Phone Hemal Bess MD Primary Care Provide r Reason for Visit * Reason Onset Date Comments eRx-Medication Refill Medication Pre-auth 02/22/2024 Encounter Details Date Type Department Care Team (Late st Contact Info) Description 02/22/[address] [address] Hemal Bess MD [address] [place], [place] [address] [phone] eRx-Medication Refill; Medication Pre-auth Allergies Active Allergy [...] encounter Miscellaneous Notes * Telephone Encounter - Kira Fajardo CPhT - 02/29/2024 9:30 AM EDT Pt calling regarding message from today Advise Pt medication Dicyclomine HCl 20 MG Oral Tablet (Bentyl) has been approved until 02/27/25. Thank you, Kira Fajardo CPhT Winding Department Supervisor II [facility] ([facility]) (Formerly Telepharmacy) 02/29/2024,9:31 AM * Telephone Encounter - Michelle Vigil CPhT - 02/29/2024 9:22 AM EDT Checked status of prior authorization for Dicyclomine HCl 20 MG Oral Tablet (Bentyl) through CMM. Left message on voicemail for patient to call back. Please make patient aware Dicyclomine HCl 20 MG Oral Tablet (Bentyl) was approved until: 02/27/2025. Pharmacy also made aware of approval. Thank you, Michelle Vigil Winding Department Supervisor [facility] 02/29/2024,9:22 AM * Telephone Encounter - Jinny Quinonez public service director - 02/28/2024 2:29 PM EDT Submitted information in previous note via [facility] ([place]: [id number]).. Awaiting payer response. We will follow-up with insurance starting 02/28. Per [facility] request, if no decision is received from insurance by 03/02, we will route back to the [facility] after clarifying with the pharmacy that the claim is still not processing. Thanks, Jinny Quinonez [place] Management Professor III [facility] ([facility]) 02/28/2024,2:29 PM * Telephone Encounter - Lia Tolliver [facility] - 02/28/2024 1:24 PM EDT Please submit [...] upon this and route back to the [facility] if no decision is made by the insurance by 03/02/24, after clarifying with the pharmacy that the claim is still not processing. If PA is denied, please also route back to [facility]. Thanks, Lia Tolliver [facility] Clinical Pharmacist [facility] ([facility]) [phone] * Telephone Encounter - Jinny Quinonez PHARM Tech - 02/28/2024 12:22 PM EDT This is a new PA request. Upon review of this prior authorization request, I verified this request is appropriate. This is prescribed by a department for which [facility] is authorized to review prior authorizations This [...] note, there is nothing currently pending in [facility] for this request. Please advise how to proceed. Thanks, Jinny Quinonez [employer] Management Professor III [facility] ([facility]) 02/28/2024,12:22 PM * Telephone Encounter - Veronica Ruiz PHARM Tech - 02/28/2024 10:42 AM EDT Patient calling to inform doctor that the patient's insurance will not pay for this medication without a completed prior authorization. Did confirm this information with the pharmacy. Pt's current insurance information is as follows: Patient name: Kyra Mendoza ID number: [id number] BIN number: [id number] N number: [id number] Group number: Subscriber name: Kyra Mendoza Primary or Secondary Insurance:Primary Medication: Dicyclomine HCl 20 MG Oral Tablet (Bentyl) Reason for Request: rupali allen Pharmacy and phone number: [facility], [address] [place] Rx plan and phone number: [phone] Is this a new medication for the patient? No. How did the patient obtain the medication on the lastfill? It was covered last time on this same insurance. What alternative medications does the pharmacy have in stock?: n/a Veronica Faulkner Winding Department Supervisor [facility] ([facility]) 02/28/2024,10:43 AM [...] hemoglobin A1c goal of less than 8.0% ([facility]) Chondrocalcinosis Rectocele Cystocele, lateral Prolapse of vaginal [...] 10:30 AM EDT Office Visit Gastroenterology [address] [place] [address] Carolina Camilo CRNP [address] [place] [address] 05/16/2024 1:30 PM EDT Imaging Radiology [address] [place] [address] 08/14/2024 2:20 PM EST Office Visit [address] [place] [phone] Avril Mcgowan PA-C [address] [place] [address] [place] [address] 02/12/2025 2:00 PM EDT Office Visit [address] [place] [phone] Avril Mcgowan PA-C [address] [place] [address] [place] [address] Health Maintenance Due Date Last Done Comments [...] syndrome documented in this encounter Care Teams Grocery Checker Relationship Specialty Start Date End Date Hemal Bess MD [address] [place] [address] [place] [address] PCP - General Family Medicine 02/14/24 documented as of this encounter
--- OUTSIDE RECORDS SUMMARY | 2024-08-13 14:51 | External Medical Summary | Summary of Care ---
Author Name Unknown Organization [facility] Address [address] [place] [address] Phone [phone] Care Team Providers Care Foil Cutter Name Role Phone Hemal Franklin MD Primary Care Provide r Reason for Visit * Reason Onset Date Comments Test Results 02/15/2024 Encounter Details Date Type Department Care Team (Late st Contact Info) Description 02/15/2024 Telephone Family [address] [address] Hemal Franklin MD [address] [place] [address] [place] [phone] Test Results Allergies Active Allergy Reactions Criticality Noted Date Comments Bactrim Edema Other 04/16/2009 Joint pain Morphine And Codeine 09/10/2005 Propoxyphene Napsylate 10/06/2005 Tramadol Hcl 08/23/2008 documented as of this encounter (statuses as of 02/16/2024) Medications Medication Sig Dispensed Refills Start Date End Date Status MULTIVITAMINS PO CAPS one daily 0 01/19/2007 Active CALCIUM 600-200 MG-UNIT PO TABS one bid 0 01/19/2007 Active FIBER-LAX 625 MG PO TABS one daily 0 01/19/2007 Active CORTISPORIN 1 % EX OINTIndications:Open wound of nose apply to each nare twice a day when needed 15 g 1 09/18/2014 Active Probiotic Product (PROBIOTIC & ACIDOPHILUS EX ST) Capsule Take 1 Cap by mouth once. Active Dicyclomine HCl 20 MG Oral Tablet (Bentyl)Indications: Irritable bowel syndrome with diarrhea One pill by mouth 4 times a day as needed for abdominal pain 120 Tab 11 04/25/2021 Active Magnesium 500 MG Oral Capsule Take 1 Capsule by mouth in the morning. 08/13/2021 Active Azelastine HCl 0.05 % Ophthalmic Solution (Optivar)Indications :Allergic conjunctivitis of both eyes Instill into both eyes 1 Drop in the morning AND 1 Drop before bedtime. 6 mL 12 12/16/2021 Active Hydrocortisone (Perianal) 2.5 % External Cream (Anusol-HC)Indicatio ns:Hemorrhoids, external without complications Administer into the rectum 2 times a day. 28 g 3 06/01/2022 Active Montelukast Sodium 10 MG Oral Tablet (Singulair)Indicatio ns:Allergic rhinitis, unspecified seasonality, unspecified trigger Take 1 Tablet by mouth in the morning. 90 Tablet 1 08/10/2022 Active hydrOXYzine HCl 25 MG Oral TabletIndications:De rmatitis Take 1 Tablet by mouth 2 times a day as needed for Itching. 40 Tablet 2 12/08/2022 Active Fenofibrate Micronized 134 MG Oral Capsule TAKE ONE CAPSULE BY MOUTH EVERY MORNING BEFORE BREAKFAST 90 Capsule 3 04/26/2023 Active Levothyroxine Sodium 100 MCG Oral Tablet (Levoxyl)Indications :Acquired hypothyroidism TAKE ONE TABLET BY MOUTH DAILY AT LEAST 30 MINS PRIOR TO BREAKFAST OR OTHER MEDS 90 Tablet 3 04/26/2023 Active Cetirizine HCl 10 MG Oral Tablet (ZyrTEC Allergy)Indications: Allergy, subsequent encounter Take 1 Tablet by mouth [...] Active Losartan Potassium 50 MG Oral Tablet (Cozaar)Indications: HTN, goal below 140/90 Take 1 Tablet by mouth in the morning. 90 Tablet 3 08/26/2023 Active Famotidine 20 MG Oral Tablet (Pepcid)Indications: Reflux esophagitis Take 1 Tablet by mouth in the morning. 90 Tablet 3 08/26/2023 Active Amitriptyline HCl 25 MG Oral Tablet (Elavil)Indications: Urinary frequency,Pelvic pain in female TAKE ONE TABLET BY MOUTH AT BEDTIME 90 Tablet 3 09/22/2023 Active Diclofenac Sodium 1 % External Gel (Voltaren)Indication s:Chronic pain of right knee,DDD (degenerative disc disease), cervical Apply topically to affected area every 6 hours as needed (shoulder). 150 g 2 09/29/2023 Active busPIRone HCl 10 MG Oral Tablet (Buspar)Indications: Anxiety Take 1 Tablet by mouth in the morning and 1 Tablet before bedtime. 60 Tablet 5 10/18/2023 Active Baclofen 20 MG Oral TabletIndications:De generation of lumbosacral intervertebral disc Take 1 Tablet by mouth in the morning and 1 Tablet before bedtime. As needed. 30 Tablet 12/03/2023 Active Atenolol 50 MG Oral Tablet (Tenormin)Indication s:HTN, goal below 140/90 TAKE ONE TABLET BY MOUTH EVERY DAY 90 Tablet 3 12/24/2023 Active Pantoprazole Sodium 40 MG Oral Tablet Delayed Release (Protonix)Indication s:Gastroesophageal reflux disease with esophagitis without hemorrhage Take 1 Tablet by mouth in the morning and 1 Tablet before bedtime. In the morning.. 90 Tablet 3 12/23/2023 Active Ondansetron HCl 4 MG Oral TabletIndications:Na usea Take 1 Tablet by mouth every 6 hours as needed for Nausea or Vomiting. 30 Tablet 02/11/2024 Active Nitrofurantoin Monohyd Macro 100 MG Oral Capsule (Macrobid) Take 1 Capsule by mouth in the morning and 1 Capsule before bedtime. Do all this for 7 days. With food until gone. 14 Capsule 02/15/2024 02/22/2024 Active documented as of this encounter (statuses as of 02/16/2024) Active Problems Problem Noted Date Diagnosed Date [...] as of this encounter (statuses as of 02/16/2024) Resolved Problems Problem Noted Date Diagnosed Date [...] as of this encounter (statuses as of 02/16/2024) Immunizations Name Administration Dates Next Due Pneumococcal [...] encounter Miscellaneous Notes * Telephone Encounter - Deanna Anders LPN - 02/16/2024 9:09 AM EDT Pt aware. Voiced understanding. * Telephone Encounter - Hemal Franklin MD - 02/15/2024 3:09 PM EDT Please let patient know her urine culture is growing 2 bacteria. Sent Macrobid to pharmacy documented in this encounter Plan of Treatment Upcoming Encounters Date Type Department Care Team (Late st Contact Info) Description 05/12/2024 10:30 AM EDT Office Visit Gastroenterology [address] [place] [address] Carolina Camilo CRNP [address] [place] [address] 05/16/2024 1:30 PM EDT Imaging Radiology [address] [place] [address] 08/14/2024 2:20 PM EST Office Visit [address] [place] [phone] Avril Mcgowan PA-C [address] [place] [address] [place] [address] 02/12/2025 2:00 PM EDT Office Visit [address] [place] [phone] Avril Mcgowan PA-C [address] [place] [address] [place] [address] Health Maintenance Due Date Last Done Comments [...] filedocumented as of this encounter Care Teams Foil Cutter Relationship Specialty Start Date End Date Hemal Franklin MD [address] [place] [address] [place] [address] PCP - General Family Medicine 02/14/24 documented as of this encounter
--- OUTSIDE RECORDS SUMMARY | 2024-08-13 14:51 | External Medical Summary | Summary of Care ---
Author Name Unknown Organization [facility] Address [address] [facility] [place] [address] Phone [phone] Care Team Providers Care Battery Plate Assembler Name Role Phone Roxanne Franklin MD Primary Care Provide r Reason for Visit * Reason Comments eRx-Medication Refill Encounter Details Date Type Department Care Team (Late st Contact Info) Description 02/22/2024 Refill Family Medicine [address] [place] [address] Roxanne Franklin MD [address] [place] [address] [place] [address] Irritable bowel syndrome with diarrhea Allergies Active Allergy Reactions Criticality Noted Date Comments Bactrim Edema Other 04/16/2009 Joint pain Morphine And Codeine 09/10/2005 Propoxyphene Napsylate 10/06/2005 Tramadol Hcl 08/23/2008 documented as of this encounter (statuses as of 02/23/2024) Medications Medication Sig Dispensed Refills Start Date [...] as of this encounter (statuses as of 02/23/2024) Active Problems Problem Noted Date Diagnosed Date [...] as of this encounter (statuses as of 02/23/2024) Resolved Problems Problem Noted Date Diagnosed Date [...] as of this encounter (statuses as of 02/23/2024) Immunizations Name Administration Dates Next Due Pneumococcal [...] Telephone Encounter - Roxanne Franklin MD - 02/23/2024 11:41 AM EDT Signed Prescriptions: Disp Refills Dicyclomine HCl 20 MG Oral Tablet (Bentyl) 120 Ta*11 Sig: TAKE ONE TABLET BY MOUTH FOUR TIMES DAILY NEEDED FOR ABDOMINAL PAIN Authorizing Provider: ROXANNE FRANKLIN * Telephone Encounter - Caitlin Izaguirre RN [...] hemoglobin A1c goal of less than 8.0% ([facility]) Chondrocalcinosis Rectocele Cystocele, lateral Prolapse [...] 05/12/2024 10:30 AM EDT Office Visit Gastroenterology [address] [place] [address] Carolina Camilo CRNP [address] [place] [address] 05/16/2024 1:30 PM EDT Imaging Radiology [address] [place] [address] 08/14/2024 2:20 PM EST Office Visit [address] [place] [phone] Avril Mcgowan PA-C [address] [place] [address] [place] [address] 02/12/2025 2:00 PM EDT Office Visit [address] [place] [phone] Avril Mcgowna PA-C [address] [place] [address] [place] [address] Health Maintenance Due Date Last Done Comments [...] 02/16/2020, Additional history exists TSH 12/22/2024 12/23/2023, /02/2024, 12/08/2022, Additional history exists Albumin/Creatinine Ratio 02/10/2025 024, 01/20/2023, 11/27/2021, Additional history exists GFR 02/10/2025 02/11/2024, 11/25, 10/15/2023, Additional history exists DTaP,Tdap,and Td Vaccines (3 - Td or Tdap) 12/03/2032 12/03/2022, 09/22/2010, 07/26/2000 Fecal Occult Blood Test Discontinued 02/02/2002 Hepatitis C Screening Completed 08/12/2015 Pneumococcal Vaccine: 65+ Years Completed 05/14/2016, 12/28/2014, [...] syndrome documented in this encounter Care Teams Battery Plate Assembler Relationship Specialty Start Date End Date Roxanne Franklin MD [address] [place] [address] [place] [address] PCP - General Family Medicine 02/14/24 documented as of this encounter
--- OUTSIDE RECORDS SUMMARY | 2024-08-13 14:51 | External Medical Summary | Summary of Care ---
Author Name Unknown Organization [facility] Address [address] [place] [address] Phone [phone] Care Team Providers Care Teaching Artist Name Role Phone Hemal Franklin MD Primary Care Provide r Reason for Visit * Reason Onset Date Comments Test Results 02/14/2024 Encounter Details Date Type Department Care Team (Late st Contact Info) Description 02/14/2024 Telephone Family [address] [address] Avril Mcgowan PA-C [address] [place] [address] [place] [phone] Test Results Allergies Active Allergy Reactions Criticality [...] Tablet (Bentyl)Indications:I rritable bowel syndrome with diarrhea One pill by [...] Nausea or Vomiting. 30 Tablet 02/11/2024 Active documented as of this encounter (statuses [...] Encounter - Deanna Anders LPN - 02/16/2024 9:10 AM EDT Pt aware. * Telephone Encounter - Hemal Franklin MD - 02/14/2024 3:33 PM EDT Her blood work was good/stable. No changes to her medications. I will send a letter with the numbers on it * Telephone Encounter - Jeannie Zhou RN - 02/14/2024 1:40 PM EDT Labs are finalized. Message sent to provider for advice. * Telephone Encounter - Johanna Adams OSA - 02/14/2024 12:02 PM EDT Who is Requesting Test Results: patient Primary Care Provider : Avril Mcgowan PA-C Tests Results Requested : labs Date of Test : 02/11/24 Location of Test: [facility] Ordering Provider: Dr. Franklin Results are in system Patient has been made aware that the turnaround time for test results are typically as follows: Laboratory results = within 2-3 days ([facility]), 3-5 days (Non-[facility], ie. [facility]) Urine Cultures = within 2-3 days depending on growth within the culture Pathology results (biopsy results/PAP) = 1-2 weeks Radiology results = about 1 week Cologuard results = within 2 weeks from the shipment date COVID testing = about 24 hours documented in this encounter Plan of Treatment Upcoming Encounters Date Type Department Care Team (Late st Contact Info) Description 05/12/2024 10:30 AM EDT Office Visit Gastroenterology [address] [place] [address] Carolina Camilo CRNP [address] [place] [address] 05/16/2024 1:30 PM EDT Imaging Radiology [address] [place] [address] 08/14/2024 2:20 PM EST Office Visit Family [address] [place] [phone] Avril Mcgowan PA-C [address] [place] [address] [place] [address] 02/12/2025 2:00 PM EDT Office Visit [address] [place] [phone] Avril Mcgowan PA-C [address] [place] [address] [place] [address] Health Maintenance Due Date Last Done Comments [...] filedocumented as of this encounter Care Teams Teaching Artist Relationship Specialty Start Date End Date Hemal Franklin MD [address] [place] [address] [place] [phone] PCP - General Family Medicine 02/14/24 documented as of this encounter
[2024-08-13] MEDS ORDERED: ONDANSETRON INJ 2 MG/ML 2 ML VIAL ONE (15:05)
[2024-08-13] MEDS ORDERED: DEXAMETHASONE SOD INJ 4 MG/ML VIAL ONE (15:05)
[2024-08-13] MEDS ORDERED: PHENYLEPHRINE HCL 10 MG/ML VIAL ONE (15:09)
[2024-08-13] MEDS: ceFAZolin 2000MG 2,000 MG/15 ML SYR IV ONE (15:52)
--- NOTE | 2024-08-13 17:32 | Operative Report ---
Post Operative Report Pre & Post Diagnosis Operation Date: 08/13/24 14:00 Pre-Op Diagnosis: Closed intertrochanteric fracture of left hip Post-Op Diagnosis: Closed intertrochanteric fracture of left hip I identified the patient and participated in the time-out.: Yes Procedure Operation Date: 08/13/24 14:00 Actual Procedures p Left Hip Open Reduction, Left Cephalomedullary Nailing with physician directed flouro <1hr(Left) - Rm Garcia DO 1. Left hip open reduction and cephallomedullary nailing 2. Physician directed fluoroscopy > 1 hour Surgeon Rm Garcia DO Measurement Superintendent none Estimated Blood Loss 200 Findings Consistent with Post-Op Diagnosis Specimens none Anesthesia Type General Complications none immediately apparent Disposition Disposition: Recovery Room Indications Marilyn is a pleasant 74-year-old female who presents to the emergency department today after a fall wherein she slipped on ice while descending stairs to go warm up her car. During the fall, she sustained a closed, traumatic, displaced left intertrochanteric hip fracture. I had a long discussion with the patient, her and daughter who joined her at bedside with regards to the nature of this diagnosis. We discussed in great detail the pathoanatomy, pathophysiology, treatment options. I discussed with him that hip fractures in general are fractures of immobility, and as such we attempted get them addressed as urgently as possible. I expressed to her that my recommendation for this fracture is for open versus closed reduction and cephalomedullary nailing of the left hip. I expressed to them that there are risks associate with surgery that include but are not limited to loss of life/limb, DVT, incomplete relief of pain, hardware complication, hardware failure, hardware irritation, iatrogenic injury to bone/nerve/tendon/vessel, malunion, nonunion, need for additional surgery, infection, screw cut out. Patient understands these risks. I also discussed with them the alternatives to surgery which would be for nonoperative care. If the patient were to elect for nonoperative care, I believe that her risks of DVT, decubitus ulcers, pneumonia are significantly high as the patient would have significant pain with attempted mobilization. After thorough discussion of the risks and benefits as well as alternatives to surgery, through shared decision-making model, the patient and her family have elected to proceed with operative management. No promises or guarantees were stated or implied. Patient has been n.p.o. since 7 AM. We will proceed to the operating room upon OR availability. I did discuss in plain terms with the patient and her family that hip fractures are often times harbingers of worsening state,. The patient and her family understand that hip fractures signify the significant osteopenia or osteoporosis that patient has as well as their decreasing functional mobility. I expressed to the patient that considering she walks ordinarily without assistive devices, our best case in areas that she ambulates with a cane moving forward. The patient and her family expressed understanding to this and the discussion of her overall functional status. we also discussed bone health. We will order vitamin D labs and replete as necessary, additionally, the patient will be referred to the osteoporosis clinic as an outpatient. The patient has been admitted to the medical team. She is also receiving treatment for her suspected urinary tract infection. I did express to them that this may raise her risk of infection from surgery, however in my opinion,the risks of delaying surgery do not outweigh the benefits of proceeding to the operating room Surgical plan: Open versus closed reduction and internal fixation of the left hip for left intertrochanteric hip fracture Description of Procedure After informed consent was obtained, the patient was correctly identified in the preoperative holding suite, the operative site was marked with the surgeon's initials, the date of surgery, and the word yes. The patient was then taken to the operative suite. The department of anesthesia administered General Anesthesia. The patient was transferred from the [facility] to the operative table. All bony prominences were well-padded. Briefing and timeout was performed. All implants were available and sterile at the time. BRIEFING AND DEBRIEFING: Pre and post operative briefing and debriefing was performed. Introductions were made, goals of the procedure were discussed, questions and concerns were addressed. The operative site markings were identified and appropriate. A time [id number] was performed, the patient's correct identity was confirmed and the correct operative sites were identified. The patients pre-operative antibiotic dosing and administration was confirmed along with other SCIP measures. The team was polled at the completion of the surgery and all team members were in agreement that the procedure was without complication, the counts are correct, the wound class was identified and suggestions for improvement were shared. The patient was transferred from the [facility] to the operative table in supine fashion. The injured leg was placed in the traction boot and the well leg was secured to the arm holding the traction rig. This was required in order to obtain appropriate fluoroscopic images. Traction and internal rotation were placed onto the left lower extremity and fluoroscopy was brought in to ensure an appropriate reduction prior to prepping and draping. It was immediately evident that an open reduction with a bone hook would be necessary in this case. 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 We would keep this in mind during our reduction later. The leg was then prepped and draped in standard sterile fashion using ChloraPrep and an [place] shower curtain drape. We used fluoroscopy to shabana out the anatomy of the proximal femur including the tip of the greater trochanter, the intended trajectory of our lag bolt as well as the femoral shaft on the lateral view. we would make a 3 cm incision approximately 2 cm proximal to the great tip of the greater trochanter in line with the femoral shaft. We dissected bluntly through the gluteal fascia and found an appropriate start point just medial to the tip of the greater trochanter on the AP view and in line with the femoral shaft on the lateral view. We would advance the starting wire into the canal and then over this used the opening reamer. We ensured to ream medially in order to help prevent more varus than the patient natively has. A fluoroscopic shot was saved demonstrating this reaming. We then inserted the ball-tipped guidewire and used a 12.5 mm reamer. The patient had significant femoral bowing, and as such we did not think it was safe to place a long nail, so we opted for a short nail. We selected the 11 mm x 170 mm short nail. The only nail available to us was 130 degrees, so we selected that one. We inserted this into the femoral shaft on the insertion handle until we were satisfied with the nail placement and trajectory. We then made an incision on the lateral border of the femur, Dissected bluntly down to the IT band and incised this. We thenintroduced a Daniel elevator through this incision over the anterior aspect of the femoral neck and then replaced the Daniel elevator with a bone hook. Lateral translation was pulled on the femoral neck in order to appropriately reduce the calcar. This does appear in varus, but does match the contralateral side. The comminution noted inferiorly also made this portion of the procedure quite difficult. while continuing to pull lateral translation on the femoral neck, we placed the targeting device for the guidewire for the lag bolt. Next,our guidewire for the lag bolt was advanced into the head such that it ended up in the center to the inferior aspect of the femoral head so decrease risk of cut out moving forward. We measured the guidewire, reamed appropriately, and placed a 100 mm lag bolt through the targeting guide. We did have to tap for this lag bolt. Once the lag bolt was in place, we tightened the locking knot proximally and then backed it off the cord return. We compressed through the jig and demonstrated zoroastrianism of Shenton's line. We then inserted the triple sleeve for the distal interlocking screw through the jig and drilled and placed an appropriately sized 5 mm x 36 mm interlocking bolt dist angiey. We thoroughly irrigated all wounds and began our layered closure. The gluteal fascia and the IT band were closed with 0 Vicryl suture followed by 2-0 Vicryl in the subcutaneous tissue and then 3-0 Monocryl in the subcuticular tissue. Skin glue was applied, Acticoat Flex, 4 x 4's, Tegaderms. The patient tolerated this procedure well and was transferred to the PACU in stable condition. Prior to transportation to PACU, all counts were correct and a briefing was performed at the end of the case. Physician-directed fluoroscopy for greater than one hour was performed by myself to verify fracture alignment and the safe placement of all internal fixation. The final images saved to PACs showed views demonstrating satisfactory alignment and stable internal fixation. Implant verification was performed by myself by reading and confirming the implant information on the packaging with the team before the sterile implants were opened. I was present for the entire procedure. Plan: Weight bearing status: weightbearing as tolerated left lower extremity Wound care: keep dressings clean and dry Range of motion: as tolerated VTE Prophylaxis: okay to resume from orthopedic standpoint Antibiotics: perioperative Ancef Pain Control: Multimodal Vitamin D Replacement: labs pending Discharge Plan: pending PT/OT Follow Up: with myself in 2 weeks I attest to the content of the Intraoperative Record and any orders documented therein. Any exceptions are noted below.
[2024-08-13] MEDS: PROMETHAZINE HCL 6.25 MG in SODIUM CHLORIDE 0.9% 50 ML IV PRN (17:45)
[2024-08-13] MEDS: HYDROmorphone INJ 1 MG/ML SYRINGE IV PRN (18:07)
--- NOTE | 2024-08-13 18:09 | XRay Report ---
EXAM: Radiographs of the Left Hip 2 Views INDICATION: Postop. TECHNIQUE: Front and crosstable lateral views of the left hip. COMPARISON: No relevant prior studies available. FINDINGS: Limitations: None. Bones/joints: Short femoral nail with proximal and distal locking hardware well-seated and intact. There is anatomic alignment intertrochanteric fracture of the left femur. Soft tissues: There is expected postoperative soft tissue swelling and gas at the operative bed left hip. Other findings: Calcifications noted in the pelvis. IMPRESSION: Satisfactory appearance of internal fixation left intertrochanteric fracture. ACT 112: Negative or not required by law. Electronically signed by Shantel Guzman 08-13-2024 6:09 PM
--- NOTE | 2024-08-13 18:24 | Anesthesiology Progress Note ---
Date of Service August 13, 2024 Anesthesia Post Procedure Vital Signs Vital Signs: Temp Pulse Pulse Resp BP BP Pulse Ox 08/13/24 17:35 77 15 164/71 H 100 08/13/24 17:29 36.2 C L 83 17 168/71 H 100 08/13/24 14:26 08/13/24 14:08 66 21 140/82 97 08/13/24 13:10 67 15 156/70 H 99 08/13/24 12:18 81 08/13/24 12:08 70 15 125/81 99 08/13/24 11:20 64 18 167/79 H 95 08/13/24 10:40 36.5 C 66 20 145/60 H 100 08/13/24 10:40 36.5 C 66 20 145/60 H 100 08/13/24 10:40 36.5 C 66 20 145/60 H 100 O2 Del Method O2 Flow Rate 08/13/24 17:35 Nasal Cannula 8 08/13/24 17:29 Nasal Cannula 8 08/13/24 14:26 Nasal Cannula 2 08/13/24 14:08 Nasal Cannula 2 08/13/24 13:10 Nasal Cannula 2 08/13/24 12:18 08/13/24 12:08 Nasal Cannula 2 08/13/24 11:20 Room Air 08/13/24 10:40 Room Air 08/13/24 10:40 Room Air 0 08/13/24 10:40 Room Air Pain Intensity Left Hip: Pain Intensity: 3 Left Shoulder: Pain Intensity: 8 Bilateral Knee: Pain Intensity: 8 Transfer of Care Handoff Completed per policy Notes Mental Status: alert / awake / arousable Patient Amnestic to Procedure: Yes Nausea / Vomiting: adequately controlled Pain: adequately controlled Airway Patency, RR, SpO2: stable & adequate BP & HR: stable & adequate Hydration State: stable & adequate Anesthetic Complications: no major complications apparent
[2024-08-13] MEDS ORDERED: GLUCOSE 40% GEL 15 GM TUBE PO PRN (19:43)
[2024-08-13] MEDS ORDERED: NALOXONE HCL 0.4 MG/1 ML VIAL/CARP IV PRN (19:43)
[2024-08-13] MEDS ORDERED: bisacodyL 10 MG SUPP PR PRN (19:43)
[2024-08-13] MEDS ORDERED: DEXTROSE 50% 50 ML SYRINGE IV PRN (19:43)
[2024-08-13] MEDS ORDERED: GLUCOSE 10 TAB/TUBE PO PRN (19:43)
[2024-08-13] MEDS ORDERED: GLUCAGON FOR INJ 1 MG VIAL SQ PRN (19:43)
[2024-08-13] MEDS ORDERED: CARBOHYDRATES FOR HYPOGLYCEMIA PO PRN (19:43)
[2024-08-13] MEDS ORDERED: MAGNESIUM HYDROXIDE SUSP 30 ML UDC PO PRN (19:43)
[2024-08-13] MEDS ORDERED: HYDROmorphone INJ 0.5 MG/0.5 ML SYR IV PRN (19:43)
[2024-08-13] MEDS: INSULIN ASPART PER UNIT CHARGE SC SCH (21:13)
[2024-08-13] MEDS: DOCUSATE SODIUM/SENNA 50/8.6MG TAB PO SCH (21:14)
[2024-08-13] MEDS: POTASSIUM CHLORIDE CRTAB 20 MEQ TABCR PO SCH (21:14)
[2024-08-13] MEDS: ACETAMINOPHEN 500 MG TAB PO SCH (21:14)
[2024-08-13] MEDS: LIDOCAINE 5% 1 PATCH TD STA (21:25)
[2024-08-13] MEDS: DICLOFENAC SOD 1% GEL 100 GM TUBE EXT SCH (21:27)
[2024-08-13] MEDS: MAGNESIUM SULFATE / D5W 1 GM/100 ML BAG IV STA (22:23)
[2024-08-14] MEDS: LEVOTHYROXINE SODIUM 100 MCG TABLET PO SCH (05:47)
[2024-08-14] MEDS ORDERED: ceFAZolin 2000MG 2,000 MG/15 ML SYR IV SCH (06:00)
[2024-08-14 07:16] LABS: Hemoglobin 10.3 g/dl (12.0-16.0); Mean Corpuscular Hemoglobin 31.4 pg (25.0-34.0); Mean Corpuscular Hgb Conc 34.3 g/dL (32.0-36.0); Mean Corpuscular Volume 91.5 fL (80.0-100.0); Mean Platelet Volume 9.3 fL (9.4-12.4); Platelet Count 269 K/uL (130-400); RDW Coefficient of Variation 12.9 % (11.5-14.5); RDW Standard Deviation 42.8 fL (36.4-46.3); Red Blood Count 3.28 M/uL (4.20-5.40); White Blood Count 10.25 K/ul (4.8-10.8)
[2024-08-14 07:54] LABS: BUN Creatinine Ratio 25.6 (10-20); Calcium 8.9 mg/dl (8.6-10.3); Creatinine Clr Calc Pharmacy 62.9 ml/min; Magnesium 1.7 mg/dl (1.7-2.4); Phosphorus 2.9 mg/dl (2.5-4.9); Potassium 4.7 mmol/L (3.5-5.1)
--- NOTE | 2024-08-14 08:18 | Fluoroscopy Report ---
FL hip LT 2-3V CLINICAL HISTORY: Left troch nail TECHNIQUE: 287 views were obtained with the C-arm in the OR with the above procedure. Total fluorosco py time was 33 seconds. Radiation dose was 53.4 mGy. Comparison: Comparison is made to femur radiograph 08/13/2024 FINDINGS/IMPRESSION: Intraoperative images were obtained of left trochanteric nail placement. Please correlate with intraoperative fluoroscopy and operative report. ACT 112: Negative or not required by law. Electronically signed by: Reji Brown M.D. 08/14/2024 8:17 AM
[2024-08-14] MEDS: ATENOLOL 50 MG TABLET PO SCH (08:37)
[2024-08-14] MEDS: oxyCODONE HCL IR 5 MG TAB (IMMEDIATE RELEASE) PO PRN (08:37)
[2024-08-14] MEDS: PRAVASTATIN SOD 20 MG TAB PO SCH (08:37)
[2024-08-14] MEDS: FAMOTIDINE 20 MG TAB PO SCH (08:38)
[2024-08-14] MEDS: PANTOprazole 40 MG TAB PO SCH (08:38)
--- NOTE | 2024-08-14 10:04 | Orthopedic Progress Note ---
Date of Service August 14, 2024 Assessment & Plan (1) Closed intertrochanteric fracture of left hip: (2) Fall: (3) DM type 2 (diabetes mellitus, type 2): (4) Hypertension: (5) Peripheral neuropathy: (6) Hypothyroid: Plan Patient is postoperative day #1 status post soft medullary nailing of left intertrochanteric hip fracture. Overall, the patient is doing well. Her hip pain is improved from previous. She may bear 20 to 40 pounds on her left lower extremity. She should work with physical therapy and Occupational Therapy to determine appropriate discharge plan. She will follow-up with me in 2 weeks Admission and Anticipated Discharge Date Admission Date: August 13, 2024 Subjective She is postoperative day #1 status post open reduction cephalomedullary nailing of the left hip. Patient notes her hip pain is improved. Physical Exam Physical Exam: Left lower extremity: -Dressings clean dry and intact -Sensation intact to light touch L2-S1, but diminished and at baseline -EHL/FHL/GSC/TA motor intact -Foot is warm and well-perfused Results & Data Vital Signs (Past 12 Hours) Vital Signs Temp Pulse Pulse Pulse Resp BP BP 08/14/24 07:42 36.6 C 87 18 150/70 H 08/14/24 07:29 78 08/14/24 07:00 08/14/24 02:53 36.6 C 91 H 16 129/57 L 08/13/24 23:11 71 08/13/24 23:08 36.6 C 86 18 118/70 08/13/24 22:28 36.3 C L 84 18 146/77 H Pulse Ox Pulse Ox O2 Del Method O2 Del Method 08/14/24 07:42 95 Room Air 08/14/24 07:29 08/14/24 07:00 94 Room Air 08/14/24 02:53 92 Room Air 08/13/24 23:11 08/13/24 23:08 93 Room Air 08/13/24 22:28 94 Room Air Diagnostic Findings Postoperative imaging reviewed demonstrate stable internal fixation of left intertrochanteric hip fracture.
--- NOTE | 2024-08-14 11:26 | Electrocardiogram Report ---
Test Reason : Blood Pressure : */* mmHG Vent. Rate : 64 BPM Atrial Rate : 64 BPM P-R Int : 170 ms QRS Dur : 130 ms QT Int : 500 ms P-R-T Axes : 69 -2 157 degrees QTcB Int : 515 ms Normal sinus rhythm Left bundle branch block Abnormal ECG When compared with ECG of 13-Aug-2024 10:39, Nonspecific T wave abnormality now evident in Anterior leads Confirmed by Pacheco Guevara ([id number]) on 08/14/2024 11:26:11 AM Referred By: REFERRED SELF Confirmed By: Pacheco Guevara
[2024-08-14] MEDS: cefTRIAXone SODIUM 2,000 MG/50 ML BAG IV SCH (11:51)
--- NOTE | 2024-08-14 12:06 | Hospitalist Progress Note ---
Date of Service August 14, 2024 Assessment & Plan (1) Closed intertrochanteric fracture of left hip: Plan: -noted in ED, now s/p fixation -patient in pain post op and very anxious Plan: -start oxycodone 5-10 mg PO for severe pain -IS, SCDs order -appreciate ortho recs and input -PT/OT ordered (2) Fall: Plan: -mechanical in nature from a slip on a surface (3) Anxiety: Plan: -patient has significant anxiety regarding current situation -has anxiety outside of hospital as well Plan: -start buspar 10 tid (4) Acute bilateral knee pain: Plan: -chronic, start voltaren cream once out of surgical window (5) Left shoulder strain: Plan: -chronic in nature -continue lidocaine patch, PT/OT (6) DM type 2 (diabetes mellitus, type 2): Plan: -sliding scale inpatient (7) GERD (gastroesophageal reflux disease): Plan: -continue pantoprazole (8) Cystitis: Plan: -has dysuria, culture growing E. coli Plan: -continue ceftriaxone x3 days (9) Hypothyroid: Plan: -continue levothyroxine (10) Hyperlipidemia: Plan: -continue statin, finofibrate (11) Hypertension: Plan: -resume losartan, atenolol Plan Feeding/fluids: diabetic Analgesia: tylenol, oxycodone Sedation: na Thromboprophylaxis: SCDs for now Head up position: na Ulcer prophylaxis: PPI Glycemic control: diet Spontaneous breathing trial: na Bowel care: start miralax prn Indwelling catheter removal: na Deescalation of antibiotics: ceftriaxone x3 days I spent a total of 65 minutes coordinating, documenting, and providing care for this patient excluding time spent in the performance of separately billed services. Admission and Anticipated Discharge Date Admission Date: August 13, 2024 Subjective 74-year-old female who presented status post fall. In the ED noted to have a intertrochanteric fracture of the left hip, Ortho was consulted, patient taken to the OR for reduction. Reduction was successful, patient admitted to medicine for further workup. Patient is doing okay this morning. She is very anxious and in pain this morning. She is very scared about working with physical therapy. Review of Systems Review of Systems: CONSTITUTIONAL: anxious, in pain EYES: Patient denies any visual symptoms. EARS, NOSE, AND THROAT: No difficulties with hearing. No symptoms of rhinitis or sore throat. CARDIOVASCULAR: Patient denies chest pains, palpitations, orthopnea and paroxysmal nocturnal dyspnea. RESPIRATORY: No dyspnea on exertion, no wheezing or cough. GI: No nausea, vomiting, diarrhea, constipation, abdominal pain, hematochezia or melena. : No urinary hesitancy or dribbling. No nocturia or urinary frequency. No abnormal urethral discharge. MUSCULOSKELETAL: tender left hip NEUROLOGIC: No chronic headaches, no seizures. Patient denies numbness, tingling or weakness. PSYCHIATRIC: Patient denies problems with mood disturbance. No problems with anxiety. ENDOCRINE: No excessive urination or excessive thirst. DERMATOLOGIC: Patient denies any rashes or skin changes. Physical Exam Physical Exam: Gen: A&O 3 NAD, appears uncomfortable HEENT: NCAT, EOMI, not icteric. External ears normal. No rhinorrhea. Moist mucous membranes. Neck: Supple, full range of motion, no observable masses, No meningeal sign. Lungs: No Respiratory distress. CV: RRR, no edema. Abdomen: Soft, nondistended, No rebound tenderness. MSK: tenderness on left thigh and hip to palpation Skin: No rashes, petechiae, lesions. Normal color per patient. Neuro: Normal Gait, Grossly intact. Psych: Appropriate for situation. Results & Data Results & Data Vital Signs (Past 12 Hours) Vital Signs Temp Pulse Pulse Resp BP BP Pulse Ox 08/14/24 10:26 08/14/24 07:42 36.6 C 87 18 150/70 H 95 08/14/24 07:29 78 08/14/24 07:00 08/14/24 02:53 36.6 C 91 H 16 129/57 L 92 Pulse Ox O2 Del Method O2 Del Method 08/14/24 10:26 Room Air 08/14/24 07:42 Room Air 08/14/24 07:29 08/14/24 07:00 94 Room Air 08/14/24 02:53 Room Air Laboratory Results Laboratory Results WBC 10.25 K/ul (4.8-10.8) 08/14/24 06:33 RBC 3.28 M/uL (4.20-5.40) L 08/14/24 06:33 Hgb 10.3 g/dl (12.0-16.0) L 08/14/24 06:33 POC Hgb 11.9 g/dl (12.0-16.0) L 08/13/24 10:43 Hct 30.0 % (37.0-47.0) L 08/14/24 06:33 POC Hct 35 % (37-47) L 08/13/24 10:43 MCV 91.5 fL (80.0-100.0) 08/14/24 06:33 MCH 31.4 pg (25.0-34.0) 08/14/24 06:33 MCHC 34.3 g/dL (32.0-36.0) 08/14/24 06:33 RDW Std Deviation 42.8 fL (36.4-46.3) 08/14/24 06:33 RDW Coeff of Alyssia 12.9 % (11.5-14.5) 08/14/24 06:33 Plt Count 269 K/uL (130-400) 08/14/24 06:33 MPV 9.3 fL (9.4-12.4) L 08/14/24 06:33 Immature Gran % (Auto) 0.4 % 08/13/24 10:39 Neut % (Auto) 55.0 % 08/13/24 10:39 Lymph % (Auto) 35.0 % 08/13/24 10:39 [place] % (Auto) 7.5 % 08/13/24 10:39 Eos % (Auto) 1.5 % 08/13/24 10:39 Baso % (Auto) 0.6 % 08/13/24 10:39 Neut # (Auto) 5.79 K/uL (1.40-6.50) 08/13/24 10:39 Lymph # (Auto) 3.69 K/uL (1.20-3.40) H 08/13/24 10:39 [place] # (Auto) 0.79 K/uL (0.11-0.59) H 08/13/24 10:39 Eos # (Auto) 0.16 K/uL (0.00-0.50) 08/13/24 10:39 Baso # (Auto) 0.06 K/uL (0.00-0.20) 08/13/24 10:39 Immature Gran # (Auto) 0.04 K/uL (0.01-0.20) 08/13/24 10:39 PT 11.4 Seconds (9.0-12.0) 08/13/24 10:39 INR 1.1 (0.9-1.1) 08/13/24 10:39 APTT 23 Seconds (21-31) 08/13/24 10:39 PTT Ratio 0.9 08/13/24 10:39 POC Sodium 138 mmol/L (135-144) 08/13/24 10:43 Sodium 134 mmol/L (136-145) L 08/14/24 06:33 POC Potassium 3.8 mmol/L (3.3-5.0) 08/13/24 10:43 Potassium 4.7 mmol/L (3.5-5.1) D 08/14/24 06:33 POC Chloride 107 mmol/L (101-112) 08/13/24 10:43 Chloride 103 mmol/L (98-107) 08/14/24 06:33 Carbon Dioxide 23 mmol/L (21-32) 08/14/24 06:33 POC Total CO2 20 mmol/L (24-31) L 08/13/24 10:43 Anion Gap 8 (3-11) 08/14/24 06:33 POC Anion Gap 15.0 mmol/L (16-25) L 08/13/24 10:43 POC BUN 17 mg/dl (7-18) 08/13/24 10:43 BUN 21 mg/dl (6-23) 08/14/24 06:33 Creatinine 0.82 mg/dl (0.6-1.2) 08/14/24 06:33 POC Creatinine 0.8 mg/dl (0.6-1.3) 08/13/24 10:43 Est Cr Clr Drug Dosing 62.9 ml/min 08/14/24 06:33 eGFR 74.55 08/14/24 06:33 BUN/Creatinine Ratio 25.6 (10-20) H 08/14/24 06:33 Glucose 179 mg/dl (70-99(Fasting)) H 08/14/24 06:33 POC Glucose 170 mg/dl (70-99) H 08/14/24 07:48 POC Glucose (other) 194 mg/dl (70-99) H 08/13/24 10:43 Calcium 8.9 mg/dl (8.6-10.3) 08/14/24 06:33 POC Ioniz Calcium Alexis 1.10 mmol/l (1.12-1.32) L 08/13/24 10:43 Phosphorus 2.9 mg/dl (2.5-4.9) 08/14/24 06:33 Magnesium 1.7 mg/dl (1.7-2.4) 08/14/24 06:33 Total Bilirubin 0.4 mg/dl (0.2-1.0) 08/13/24 10:39 AST 36 U/L (13-39) 08/13/24 10:39 ALT 24 U/L (7-52) 08/13/24 10:39 Alkaline Phosphatase 58 U/L (34-104) 08/13/24 10:39 Total Protein 6.5 gm/dl (6.0-8.3) 08/13/24 10:39 Albumin 4.0 gm/dl (3.4-5.0) 08/13/24 10:39 Globulin 2.5 gm/dl (2.5-4.0) 08/13/24 10:39 Albumin/Globulin Ratio 1.6 (0.9-2) 08/13/24 10:39 Urine Color Yellow 08/13/24 11:05 Urine Appearance Cloudy (Clear) A 08/13/24 11:05 Urine pH 7.0 (4.5-7.5) 08/13/24 11:05 Ur Specific [place] 1.014 (1.000-1.030) 08/13/24 11:05 Urine Protein Negative (Negative) 08/13/24 11:05 Urine Glucose (UA) Negative (Negative) 08/13/24 11:05 Urine Ketones Negative (Negative) 08/13/24 11:05 Urine Blood Negative (Negative) 08/13/24 11:05 Urine Nitrite Negative (Negative) 08/13/24 11:05 Urine Bilirubin Negative (Negative) 08/13/24 11:05 Urine Urobilinogen Negative (Negative) 08/13/24 11:05 Ur Leukocyte Esterase 2+ (Negative) H 08/13/24 11:05 Urine WBC (Auto) 21-50 /hpf (0-5) H 08/13/24 11:05 Urine RBC (Auto) 0-2 /hpf (0-2) 08/13/24 11:05 U Hyaline Cast (Auto) 0-2 /lpf (0-2) 08/13/24 11:05 U Epithel Cells (Auto) 0-2 /hpf (0-2) 08/13/24 11:05 Urine Bacteria (Auto) 4+ (None Seen) H 08/13/24 11:05 Impressions Femur X-Ray 08/13/24 10:46 EXAM: Radiographs of the Left Femur 2 Views INDICATION: Posttraumatic pain. Fracture. TECHNIQUE: Frontal and lateral views of the left femur. COMPARISON: No relevant prior studies available. FINDINGS: Bones/joints: There is a minimally angulated acute intertrochanteric fracture of the left femur. The femur otherwise is intact. There is mild medial and lateral compartment knee joint line spurring and medial narrowing. Soft tissues: No abnormality noted. No radiopaque foreign body noted. IMPRESSION: There is a minimally angulated acute intertrochanteric fracture of the left femur. ACT 112: Negative or not required by law. Electronically signed by Shantel Guzman 08-13-2024 11:28 AM Knee X-Ray 08/13/24 10:46 EXAM: Radiographs of the Right Knee 2 Views INDICATION: Trauma. TECHNIQUE: Frontal and lateral views of the right knee. COMPARISON: No relevant prior studies available. FINDINGS: Bones/joints: There is mild to moderate tricompartment spurring and narrowing mostly involving the medial and patellofemoral joints. There is no fracture or erosion. No loose body. No subluxation or dislocation. No joint effusion noted. There is incidental chondrocalcinosis of the lateral meniscal cartilage. Soft tissues: No abnormality noted. No radiopaque foreign body noted. IMPRESSION: Tricompartment primary osteoarthritis of the right knee. No acute abnormality. ACT 112: Negative or not required by law. Electronically signed by Shantel Guzman 08-13-2024 11:28 AM Pelvis X-Ray 08/13/24 10:46 EXAM: Radiographs of the Pelvis 1 View INDICATION: Trauma. TECHNIQUE: Frontal view of the pelvis. COMPARISON: No relevant prior studies available. FINDINGS: Limitations: None. Bones/joints: There is an acute angulated intertrochanteric fracture of the left femur. No other fracture noted. Soft tissues: No abnormality noted. No radiopaque foreign body noted. Gastrointestinal tract: Midline pelvic calcifications are of uncertain etiology and could be within the bladder or bowel. IMPRESSION: 1. There is an acute angulated intertrochanteric fracture of the left femur. Pelvis otherwise intact. 2. Cannot exclude bladder stones. ACT 112: Negative or not required by law. Electronically signed by Shantel Guzman 08-13-2024 11:28 AM Shoulder X-Ray 08/13/24 10:46 EXAM: Radiographs of the Left Shoulder Complete 3 Views INDICATION: Trauma. TECHNIQUE: 3 views of the left shoulder. COMPARISON: No relevant prior studies available. FINDINGS: Bones/joints: There is mild acromioclavicular and inferior glenohumeral spurring. No fracture, subluxation or dislocation. Visualized left ribs intact. Soft tissues: Mild calcific tendinitis noted. IMPRESSION: Mild calcific tendinitis noted. No fracture. ACT 112: Negative or not required by law. Electronically signed by Shantel Guzman 08-13-2024 11:28 AM Chest X-Ray 08/13/24 10:47 EXAM: Radiograph of the Chest 1 View INDICATION: Trauma. Hip fracture. TECHNIQUE: Frontal view of the chest. COMPARISON: No relevant prior studies available. FINDINGS: Lungs and pleural spaces: No consolidation or pulmonary edema. No pleural effusion or pneumothorax. Heart: Shape and configuration within normal limits allowing for technique. Mediastinum: Normal contour. Bones/joints: Degenerative changes noted throughout the spine. No acute osseous abnormality seen. Soft tissues: No abnormality noted. No radiopaque foreign body noted. Upper abdomen: No abnormality noted. IMPRESSION: No acute cardiopulmonary disease. ACT 112: Negative or not required by law. Electronically signed by Shantel Guzman 08-13-2024 11:[address] 08/13/24 10:50 EXAM: CT Head Without Intravenous Contrast INDICATION: Fall. TECHNIQUE: Axial computed tomography images of the head/brain without intravenous contrast. Sagittal and/or coronal reformats are provided. Sagittal and coronal reformatted images were created and reviewed. This CT exam was performed using one or more of the following dose reduction techniques: automated exposure control, adjustment of the mA and/or kV according to patient size, and/or use of iterative reconstruction technique. COMPARISON: No relevant prior studies available. FINDINGS: Limitations: None. Brain and extra-axial spaces: No abnormality noted. No hemorrhage. No significant white matter disease. No edema. No ventriculomegaly. Bones/joints: No acute changes. Soft tissues: No significant abnormality noted. Vasculature: No acute abnormality noted. Sinuses: No layering fluid in the visualized portions of the paranasal sinuses. Mastoid air cells: No mastoid effusion. Orbits: No significant abnormality noted. IMPRESSION: No abnormality noted. ACT 112: Negative or not required by law. Electronically signed by Shantel Guzman 08-13-2024 11:57 AM Hip X-Ray 08/13/24 14:06 FL hip LT 2-3V CLINICAL HISTORY: Left troch nail TECHNIQUE: 287 views were obtained with the C-arm in the OR with the above procedure. Total fluoroscopy time was 33 seconds. Radiation dose was 53.4 mGy. Comparison: Comparison is made to femur radiograph 08/13/2024 FINDINGS/IMPRESSION: Intraoperative images were obtained of left trochanteric nail placement. Please correlate with intraoperative fluoroscopy and operative report. ACT 112: Negative or not required by law. Electronically signed by: Reji Brown M.D. 08/14/2024 8:17 AM Hip/Pelvis X-Ray 08/13/24 17:29 EXAM: Radiographs of the Left Hip 2 Views INDICATION: Postop. TECHNIQUE: Front and crosstable lateral views of the left hip. COMPARISON: No relevant prior studies available. FINDINGS: Limitations: None. Bones/joints: Short femoral nail with proximal and distal locking hardware well-seated and intact. There is anatomic alignment intertrochanteric fracture of the left femur. Soft tissues: There is expected postoperative soft tissue swelling and gas at the operative bed left hip. Other findings: Calcifications noted in the pelvis. IMPRESSION: Satisfactory appearance of internal fixation left intertrochanteric fracture. ACT 112: Negative or not required by law. Electronically signed by Shantel Guzman 08-13-2024 6:09 PM (1) Closed intertrochanteric fracture of left hip Encounter type: initial encounter Fracture alignment: displaced Qualified Code(s): S72.142A - Displaced intertrochanteric fracture of left femur, initial encounter for closed fracture (2) Fall Encounter type: initial encounter Qualified Code(s): W19.XXXA - Unspecified fall, initial encounter (5) Left shoulder strain Encounter type: subsequent encounter Qualified Code(s): S46.912D - Strain of unspecified muscle, fascia and tendon at shoulder and upper arm level, left arm, subsequent encounter (6) DM type 2 (diabetes mellitus, type 2) Diabetes mellitus terminal manager insulin use: without terminal manager use Diabetes mellitus complication status: without complication Qualified Code(s): E11.9 - Type 2 diabetes mellitus without complications (7) GERD (gastroesophageal reflux disease) Esophagitis presence: without esophagitis Qualified Code(s): K21.9 - Gastro- esophageal reflux disease without esophagitis (9) Hypothyroid Hypothyroidism type: acquired Qualified Code(s): E03.9 - Hypothyroidism, unspecified (10) Hyperlipidemia Hyperlipidemia type: mixed hyperlipidemia Qualified Code(s): E78.2 - Mixed hyperlipidemia (11) Hypertension Hypertension type: primary hypertension Qualified Code(s): I10 - Essential (primary) hypertension
[2024-08-14] MEDS ORDERED: POLYETHYLENE (MIRALAX) 17 GM PACK PO PRN (12:12)
[2024-08-14] MEDS: FENOFIBRATE NANOCRYSTALLIZED 48 MG TABLET PO SCH (12:25)
[2024-08-14] MEDS: busPIRone 5 MG TAB PO SCH (13:10)
[2024-08-14] MEDS: LOSARTAN POTASSIUM 25 MG TAB PO SCH (16:27)
[2024-08-14] MEDS: LIDOCAINE 5% 1 PATCH TD SCH (20:34)
[2024-08-15 05:40] LABS: Appearance Urine Clear (Clear); Bilirubin Urine Negative (Negative); Blood Urine Negative (Negative); Color Urine Yellow; Glucose Urine UA Negative (Negative); Ketones Urine Negative (Negative); Leukocyte Esterase Urine Negative (Negative); Nitrite Urine Negative (Negative); Protein Urine Negative (Negative); Specific Gravity Urine 1.011 (1.000-1.030); Urobilinogen Urine Negative (Negative)
[2024-08-15 06:38] LABS: Hematocrit (blood only) 29.4 % (37.0-47.0); Mean Corpuscular Hemoglobin 30.9 pg (25.0-34.0); Mean Corpuscular Volume 90.7 fL (80.0-100.0); Mean Platelet Volume 9.2 fL (9.4-12.4); Platelet Count 225 K/uL (130-400); RDW Coefficient of Variation 12.9 % (11.5-14.5); RDW Standard Deviation 42.4 fL (36.4-46.3); Red Blood Count 3.24 M/uL (4.20-5.40); White Blood Count 10.28 K/ul (4.8-10.8)
[2024-08-15 06:42] LABS: Calcium 8.8 mg/dl (8.6-10.3); Creatinine Clr Calc Pharmacy 61.3 ml/min; Potassium 3.8 mmol/L (3.5-5.1)
--- NOTE | 2024-08-15 13:45 | Discharge Summary ---
Discharge Summary Date of Service August 15, 2024 Principal Dx & Hospital Course #1 = Principal Diagnosis (1) Closed intertrochanteric fracture of left hip: -noted in ED, now s/p fixation -patient in pain post op and very anxious Plan: -continue oxycodone 5-10 mg PO for severe pain -IS, SCDs order -appreciate ortho recs and input -PT/OT ordered, going to rehab today (2) Fall: -mechanical in nature from a slip on a surface (3) Anxiety: -patient has significant anxiety regarding current situation -has anxiety outside of hospital as well Plan: -continue buspar 10 tid (4) Acute bilateral knee pain: -chronic, start voltaren cream once out of surgical window (5) Left shoulder strain: -chronic in nature -continue lidocaine patch, PT/OT (6) DM type 2 (diabetes mellitus, type 2): -sliding scale inpatient (7) GERD (gastroesophageal reflux disease): -continue pantoprazole (8) Cystitis: -has dysuria, culture growing E. coli Plan: -finish course with cipro at SNF (9) Hypothyroid: -continue levothyroxine (10) Hyperlipidemia: -continue statin, finofibrate (11) Hypertension: -resume losartan, atenolol Notes For Next Care Provider 74-year-old female with a history of anxiety and left shoulder pain who presented after a fall. Fall was mechanical in nature. In the ED, noted to have an intertrochanteric fracture on the left side. Ortho was consulted, but took patient to the OR for an internal reduction and fixation. Procedure was successful with no immediate complications. On medicine, pain control was provided. Buspirone was started for anxiety, discussed with patient risks and benefits. Patient is medically stable for discharge. Medication Changes From Visit -malissa wang Admission HPI Per Admitting Provider Ms Mendoza is a 74 yo woman with history of DMTII, HTN, HLD, bilateral knee osteoarthritis, gerd who presented to [facility] ED due to fall on ice. Patient was in usual state of health, however, after decending stairs outside, she slipped on ice and landed on left side. She states she noted pain with trying to ambulate prompting presentation to ED. at bedside. Both report that if rehab is necessary they are comfortable with that option contingent on recovery. Patient states that she has chronic dysuria and cannot discern if symptoms are necessarily worse than baseline. Patient on amitriptyline for peripheral neuropathy and interstitial cystitis. Patient denies chest pain, palpitations, sob or other acute concerns Reports nausea at this time, suspect 2/2 "everything" she is going through at this time In the ED, vitals were notable for BP of 120-150s HR of 60-80s and O2 sat of h igh 90s on 2L Imaging revealed acute angulated intertrochanteric fracture of the left femur. Pelvis otherwise intact. UA with Bacteria, LE, WBCs EKG 511 ED interventions: analgesia, zofran x 2, ctx Consultants: ortho [facility] and management of left intertrochanteric fracture of femur Discharge Exam Gen: A&O 3 NAD, appears uncomfortable HEENT: NCAT, EOMI, not icteric. External ears normal. No rhinorrhea. Moist mucous membranes. Neck: Supple, full range of motion, no observable masses, No meningeal sign. Lungs: No Respiratory distress. CV: RRR, no edema. Abdomen: Soft, nondistended, No rebound tenderness. MSK: tenderness on left thigh and hip to palpation Skin: No rashes, petechiae, lesions. Normal color per patient. Neuro: Normal Gait, Grossly intact. Psych: Appropriate for situation. Updated Medication List Medication Instructions Recorded Confirmed Type Probiotic 1 cap PO DAILY 08/13/24 08/13/24 History amitriptyline 50 mg tablet 50 mg PO HS 08/13/24 08/13/24 History atenolol 50 mg tablet 50 mg PO DAILY 08/13/24 08/13/24 History calcium 1 tab PO DAILY 08/13/24 08/13/24 History famotidine 20 mg tablet 20 mg PO DAILY 08/13/24 08/13/24 History fenofibrate micronized 67 mg 67 mg PO DAILY 08/13/24 08/13/24 History capsule fiber 1 tab PO DAILY 08/13/24 08/13/24 History levothyroxine 100 mcg tablet 100 mcg PO DAILY 08/13/24 08/13/24 History losartan 50 mg tablet 50 mg PO DAILY 08/13/24 08/13/24 History multivitamin 1 tab PO DAILY 08/13/24 08/13/24 History pantoprazole 40 mg tablet,delayed 40 mg PO DAILY 08/13/24 08/13/24 History release potassium chloride 10 mEq 20 meq PO BID 08/13/24 08/13/24 History tablet,extended release pravastatin 20 mg tablet 20 mg PO DAILY 08/13/24 08/13/24 History buspirone 5 mg tablet 10 mg (2 x 5 mg) PO TID #30 tabs 08/15/24 Rx ciprofloxacin HCl 500 mg tablet 500 mg PO BID 2 days #4 tabs 08/15/24 Rx (Cipro) diclofenac sodium 1 % topical gel 2 g EXT Q12H #100 grams 08/15/24 Rx (Voltaren Arthritis Pain) naloxone 0.4 mg/mL injection 0.1 mg (0.25 mL) IV UD PRN opioid 08/15/24 Rx solution reversal #10 mL oxycodone 5 mg tablet 5 mg PO Q4H PRN pain #30 tabs 08/15/24 Rx polyethylene glycol 3350 17 gram 17 g PO DAILY PRN constipation #30 08/15/24 Rx oral powder packet (Miralax) ea Hospital Stay Data Consultations 08/13/24 12:18 ED Decision to Admit Stat 08/13/24 19:43 Consult Anesthesiology Routine Consult Orthopedic Surgery Routine Procedures Performed Operation Date: 08/13/24 14:00 Actual Procedures p Left Hip Open Reduction, Left Cephalomedullary Nailing with physician directed flouro <1hr(Left) - Rm Garcia DO Diagnostic Imagining Performed 08/13/24 10:50 CT head/brain wo con Stat 08/13/24 14:06 FL hip LT 2-3V Routine Pending Results Patient Have Any Pending Studies at Discharge: No Discharge Instructions Given to Patient (Per Discharging Provider) 1. Work with rehab as tolerated. 2. Finish abx for cystitis. Total Time Total Time Spent Total Time Spent (In Minutes): I spent a total of 45 minutes coordinating, documenting, and providing care for this patient excluding time spent in the performance of separately billed services.
--- NOTE | 2024-08-15 13:53 | Electrocardiogram Report ---
Test Reason : Blood Pressure : */* mmHG Vent. Rate : 73 BPM Atrial Rate : 73 BPM P-R Int : 164 ms QRS Dur : 126 ms QT Int : 466 ms P-R-T Axes : 59 27 163 degrees QTcB Int : 513 ms Normal sinus rhythm Left bundle branch block Abnormal ECG When compared with ECG of 13-Aug-2024 13:59, No significant change was found Confirmed by Pacheco Guevara ([id number]) on 08/15/2024 1:53:29 PM Referred By: REFERRED SELF Confirmed By: Pacheco Guevara
== END 2024-08-15 15:21 | DRG 481 ==
LOC: ED 10:31 → ASU 14:38 → SUATTDRO 14:39 → 2W 14:39 → ASU 14:47